=== PATIENT | female | born 1980 | race Two or more races ===

== ENCOUNTER 2017-04-09 03:05 | Emergency (ER) | payer MEDICAID ==
[~2017-04-09] VITALS: Ht 160 cm; Wt 77.1 kg
[2017-04-09] MEDS ORDERED: LABETALOL HCL100 MG ORAL (03:10)
[2017-04-09] MEDS ORDERED: ALBUTEROL2.5 MG/3 M INH (03:10)
[2017-04-09] MEDS ORDERED: Ketorolac 30mg Inj IV ONE (03:15)
[2017-04-09] MEDS ORDERED: Famotidine 20 MG/ 2ML VIAL IVP ONE (03:30)
[2017-04-09] MEDS ORDERED: Morphine Sulfate 4mg/ml Inj IVP ONE ×2 (03:30→05:15)
[2017-04-09 04:03] LABS: EOSINOPHILS % (AUTO) 9.9 % (0.0-3.0); LYMPHOCYTES % (AUTO) 19.9 % (20.0-45.0); MEAN CORPUSCULAR HEMOGLOBIN 33.9 PG (27.0-31.0); MEAN CORPUSCULAR HGB CONC 32.3 G/DL (32.0-36.0); MEAN CORPUSCULAR VOLUME 105 FL (80-99); MEAN PLATELET VOLUME 11.4 FL (6.5-10.1); NEUTROPHILS % (AUTO) 59.2 % (45.0-75.0); PLATELET COUNT 227 K/UL (150-450); RED BLOOD COUNT 4.83 M/UL (4.20-5.40); RED CELL DISTRIBUTION WIDTH 11.8 % (11.6-14.8); WHITE BLOOD COUNT 7.1 K/UL (4.8-10.8)
[2017-04-09 04:05] LABS: APPEARANCE,URINE SLIGHTLY CLOUDY; KETONES,URINE 3+ (NEGATIVE); LEUKOCYTE ESTERASE ,URINE 1+ (NEGATIVE); NITRITE,URINE NEGATIVE (NEGATIVE); PH,URINE 5 (4.5-8.0); PROTEIN,URINE 2+ (NEGATIVE); UROBILINOGEN,URINE 4 MG/DL (0.0-1.0)
[2017-04-09 04:22] LABS: BACTERIA,URINE FEW /HPF; MUCUS,URINE MANY /LPF (NONE/OCC); RBC,URINE 0-2 /HPF (0 - 2); SQUAMOUS EPITHELIAL CELL,UR MANY /LPF (NONE/OCC)
[2017-04-09 04:23] LABS: ALANINE AMINOTRANSFERASE 30 U/L (3-33); ALBUMIN/GLOBULIN RATIO 1.4 (1.0-2.7); ANION GAP 22 (5-15); ASPARTATE AMINO TRANSFERASE 38 U/L (5-40); CALCIUM 9.6 mg/dL (8.6-10.2); CARBON DIOXIDE 20 mEQ/L (20-30); CHLORIDE 98 mEQ/L (98-107); CREATININE 0.8 mg/dL (0.5-0.9); GLOMERULAR FILTRATION RATE > 60 mL/min (>60); HEMOLYSIS 28; LIPASE 31 U/L (< 60); POTASSIUM 4.2 mEQ/L (3.4-4.9); SODIUM 140 mEQ/L (135-145); TOTAL PROTEIN 7.2 g/dL (6.6-8.7)
[2017-04-09] MEDS ORDERED: cefTRIAXone 1 GM in NS 55 ML IVPB ONE (05:15)
--- NOTE | 2017-04-09 05:15 | Emergency Room Report ---
History of Present Illness General Chief Complaint: Abdominal Pain Source: Patient Present Illness HPI Patient presents with vomiting and lower abdominal pain. When she eats anything she feels like she has to move her bowels immediately and this causes increased pain in her lower abdomen. Earlier in the week she had black tarry stools that now have turned into forest green stools and now beige mucousy color. She denies vomiting blood. Denies any fevers. The pain is fairly severe and intermittent. She has dysuria. Pain is 10/10 intermittent, crampy, some radiation to back, more on L side. Nausea. Able to eat, but as sy worsened, she has refrained. Vomit at onset, not coffee grounds or blood. The patient suffered a brain aneurysm several years ago. She recovered fully and has returned to work (new job recent). No fevers, cough, sore throat, extremity pain, rashes, headache. Not believe she is . Allergies: Coded Allergies: No Known Allergies (Unverified , 04/09/17) Patient History Past Medical History: see triage record Social History: Reports: alcohol use - occasional beer (2X week) Social History Narrative Last Menstrual Period: 03/16/17 Now: No : 4 Para: 4 Reviewed Nursing Documentation: PMH: Agreed, PSxH: Agreed Nursing Documentation-PMH Hx Hypertension: Yes Hx Asthma: Yes Review of Systems All Other Systems: negative except mentioned in HPI Physical Exam Vital Signs Date Time Temp Pulse Resp B/P Pulse Ox O2 Delivery O2 Flow Rate FiO2 04/09/17 03:07 99.1 88 18 176/116 99 Room Air Sp02 EP Interpretation: reviewed, normal General Appearance: well appearing, no apparent distress, GCS 15 Head: normocephalic Eyes: bilateral eye PERRL, bilateral eye anticteric, bilateral eye normal inspection ENT: moist mucus membranes Neck: supple Respiratory: lungs clear, normal breath sounds Cardiovascular #1: regular rate, rhythm Cardiovascular #2: 2+ radial (R) Gastrointestinal: normal inspection, normal bowel sounds, soft, no mass, non- distended, no guarding, no rebound, tenderness - LLQ/suprapubic Rectal: normal exam, heme negative stool Musculoskeletal: back normal, gait/station normal, normal range of motion Neurologic: alert, oriented x3 Skin: normal inspection, warm/dry Medical Decision Making Diagnostic Impression: Primary Impression: Abdominal pain Qualified Codes: R10.32 - Left lower quadrant pain Additional Impression: UTI (urinary tract infection) Qualified Codes: N30.00 - Acute cystitis without hematuria ER Course Patient with lower abdominal pain with loose stools. Ddx: diverticulitis, GItis , ovarian cyst, UTI, inflammatory bowel, IBS. Evaluation with labs. If WBC high, consider CT. More GI - doubt ovarian. Will treat pain with toradol and IV hydration and morphine. Stool guaiac neg at this time (concern over prior black stool.) Labs with normal WBC. UA with pyuria. High H/H excludes bleeding, but suggests dehydration. Hydrated. Still reports significant pain and requests Dilaudid. Improved after dilaudid. Given Rocephin IV. Discussed observation at home -- if worsens, return. Patient stable for outpatient observation and treatment. Labs Test 04/09/17 03:15 White Blood Count 7.1 K/UL (4.8-10.8) Red Blood Count 4.83 M/UL (4.20-5.40) Hemoglobin 16.4 G/DL (12.0-16.0) Hematocrit 50.7 % (37.0-47.0) Mean Corpuscular Volume 105 FL (80-99) Mean Corpuscular Hemoglobin 33.9 PG (27.0-31.0) Mean Corpuscular Hemoglobin Concent 32.3 G/DL (32.0-36.0) Red Cell Distribution Width 11.8 % (11.6-14.8) Platelet Count 227 K/UL (150-450) Mean Platelet Volume 11.4 FL (6.5-10.1) Neutrophils (%) (Auto) 59.2 % (45.0-75.0) Lymphocytes (%) (Auto) 19.9 % (20.0-45.0) Monocytes (%) (Auto) 9.0 % (1.0-10.0) Eosinophils (%) (Auto) 9.9 % (0.0-3.0) Basophils (%) (Auto) 2.0 % (0.0-2.0) Prothrombin Time 10.0 SEC (9.30-11.50) Prothromb Time International Ratio 1.0 (0.9-1.1) Activated Partial Thromboplast Time 28 SEC (23-33) Urine Color Josy Urine Appearance Slightly cloudy Urine pH 5 (4.5-8.0) Urine Specific [place] 1.025 (1.005-1.035) Urine Protein 2+ (NEGATIVE) Urine Glucose (UA) Negative (NEGATIVE) Urine Ketones 3+ (NEGATIVE) Urine Occult Blood 1+ (NEGATIVE) Urine Nitrite Negative (NEGATIVE) Urine Bilirubin 2+ (NEGATIVE) Urine Ictotest Urine Urobilinogen 4 MG/DL (0.0-1.0) Urine Leukocyte Esterase 1+ (NEGATIVE) Urine RBC 0-2 /HPF (0 - 2) Urine WBC 5-10 /HPF (0 - 2) Urine Squamous Epithelial Cells Many /LPF (NONE/OCC) Urine Bacteria Few /HPF (NONE) Urine Mucus Many /LPF (NONE/OCC) Urine HCG, Qualitative Negative Sodium Level 140 mEQ/L (135-145) Potassium Level 4.2 mEQ/L (3.4-4.9) Chloride Level 98 mEQ/L (98-107) Carbon Dioxide Level 20 mEQ/L (20-30) Anion Gap 22 (5-15) Blood Urea Nitrogen 8 mg/dL (7-23) Creatinine 0.8 mg/dL (0.5-0.9) Estimat Glomerular Filtration Rate > 60 mL/min (>60) Glucose Level 98 mg/dL (74-106) Calcium Level 9.6 mg/dL (8.6-10.2) Total Bilirubin 0.6 mg/dL (0.0-1.2) Aspartate Amino Transf (AST/SGOT) 38 U/L (5-40) Alanine Aminotransferase (ALT/SGPT) 30 U/L (3-33) Alkaline Phosphatase 49 U/L (35-104) Total Protein 7.2 g/dL (6.6-8.7) Albumin 4.3 g/dL (3.5-5.2) Globulin 2.9 g/dL Albumin/Globulin Ratio 1.4 (1.0-2.7) Lipase 31 U/L (< 60) EKG Diagnostic Results Rate: normal Rhythm: NSR ST Segments: no acute changes Rhythm Strip Diag. Results EP Interpretation: yes Rhythm: NSR, no PVC's, no ectopy Last Vital Signs Date Time Temp Pulse Resp B/P Pulse Ox O2 Delivery O2 Flow Rate FiO2 04/09/17 07:14 99.1 04/09/17 07:12 80 18 157/95 99 Room Air Status: improved Disposition: HOME, SELF-CARE Condition: Improved Scripts Nitrofurantoin Monohyd/M-Cryst* (MACROBID 100 MG*) 100 Mg Capsule 100 MG ORAL EVERY 12 HOURS, #14 CAP Prov: Mikie López M.D. 04/09/17 Ondansetron Odt* (ZOFRAN ODT*) 4 Mg Tab.rapdis 4 MG ORAL Q6H Y for Nausea & Vomiting, #6 TAB 1 Refill Prov: Mikie López M.D. 04/09/17 Tramadol Hcl* (ULTRAM*) 50 Mg Tablet 50 MG ORAL Q6H Y for For Pain, #10 TAB 0 Refills Prov: Mikie López M.D. 04/09/17 Albuterol Sulfate* (ALBUTEROL SULFATE MDI*) 8.5 Gm Hfa.aer.ad 2 PUFF INH Q6H, #1 EA 1 Refill Prov: Mikie López M.D. 04/09/17 Referrals: [facility],REFERR[facility] (PCP) Mikie López M.D. Apr 09, 2017 05:15
[2017-04-09 05:56] VITALS: BP 157/95
[2017-04-09] MEDS ORDERED: HYDROmorphone 1mg/ml Carpuject IVP ONE (06:15)
[2017-04-09] MEDS ORDERED: ZOFRAN ODT4 MG ORAL (06:54)
[2017-04-09] MEDS ORDERED: ALBUTEROL SULF8.5 GM INH (06:54)
[2017-04-09] MEDS ORDERED: TRAMADOL HCL50 MG ORAL (06:54)
[2017-04-09 07:12] VITALS: BP 157/95
[2017-04-09] MEDS ORDERED: NITROFURANTOIN100 M2 ORAL (07:20)
== END 2017-04-09 07:14 | disposition home or self-care (01) ==
LOC: EDBD 03:05 → EDSEX 03:05 → EMR 03:30
DX: R10.30 Lower abdominal pain, unspecified (principal); N39.0 Urinary tract infection, site not specified; I10 Essential (primary) hypertension; J45.909 Unspecified asthma, uncomplicated
CPT/HCPCS: 36415; 80053; 81003; 81025; 83690; 85025; 85610; 85730; 96374; 96375; 99284; J0696; J1170; J2270; J2405; S0028

== ENCOUNTER 2017-04-13 22:00 | Inpatient (IN) | payer MEDICAID ==
[~2017-04-13] VITALS: Ht 160 cm; Wt 72.6 kg
[2017-04-13 22:00] VITALS: BP 180/115
[~2017-04-13 22:00] MED LIST: ALBUTEROL SULF8.5 GM INH; ALBUTEROL2.5 MG/3 M INH; LABETALOL HCL100 MG ORAL; NITROFURANTOIN100 M2 ORAL; TRAMADOL HCL50 MG ORAL; ZOFRAN ODT4 MG ORAL
[2017-04-13] MEDS ORDERED: HYDROmorphone 1mg/ml Carpuject IVP ONE (22:30)
[2017-04-13 22:46] LABS: BASOPHILS % (AUTO) 1.2 % (0.0-2.0); EOSINOPHILS % (AUTO) 4.8 % (0.0-3.0); LYMPHOCYTES % (AUTO) 23.7 % (20.0-45.0); MEAN CORPUSCULAR HEMOGLOBIN 34.9 PG (27.0-31.0); MEAN CORPUSCULAR HGB CONC 33.6 G/DL (32.0-36.0); MEAN CORPUSCULAR VOLUME 104 FL (80-99); MEAN PLATELET VOLUME 10.5 FL (6.5-10.1); MONOCYTES % (AUTO) 9.1 % (1.0-10.0); NEUTROPHILS % (AUTO) 61.1 % (45.0-75.0); PLATELET COUNT 164 K/UL (150-450); RED BLOOD COUNT 4.47 M/UL (4.20-5.40); RED CELL DISTRIBUTION WIDTH 11.4 % (11.6-14.8); WHITE BLOOD COUNT 10.4 K/UL (4.8-10.8)
[2017-04-13 23:05] LABS: ALANINE AMINOTRANSFERASE 30 U/L (3-33); ALBUMIN/GLOBULIN RATIO 1.7 (1.0-2.7); ANION GAP 19 (5-15); ASPARTATE AMINO TRANSFERASE 32 U/L (5-40); CALCIUM 9.5 mg/dL (8.6-10.2); CARBON DIOXIDE 19 mEQ/L (20-30); CHLORIDE 100 mEQ/L (98-107); CREATININE 0.8 mg/dL (0.5-0.9); GLOMERULAR FILTRATION RATE > 60 mL/min (>60); HEMOLYSIS 4; LIPASE 34 U/L (< 60); POTASSIUM 3.4 mEQ/L (3.4-4.9); SODIUM 138 mEQ/L (135-145); TOTAL PROTEIN 7.1 g/dL (6.6-8.7)
[2017-04-13 23:40] LABS: APPEARANCE,URINE CLEAR; KETONES,URINE 4+ (NEGATIVE); LEUKOCYTE ESTERASE ,URINE 1+ (NEGATIVE); NITRITE,URINE NEGATIVE (NEGATIVE); PH,URINE 6 (4.5-8.0); PROTEIN,URINE 2+ (NEGATIVE); UROBILINOGEN,URINE 1 MG/DL (0.0-1.0)
[2017-04-13 23:45] VITALS: BP 149/89
[2017-04-13 23:54] LABS: RBC,URINE 0-2 /HPF (0 - 2); WBC,URINE 0-2 /HPF (0 - 2)
[2017-04-13 23:55] LABS: BACTERIA,URINE OCCASIONAL /HPF; MUCUS,URINE FEW /LPF (NONE/OCC); SQUAMOUS EPITHELIAL CELL,UR MODERATE /LPF (NONE/OCC)
[2017-04-14] VITALS (7 sets, daily range): BP systolic 134–204; BP diastolic 69–112
[2017-04-14] MEDS ORDERED: PROAIR HFA8.5 GM INH (00:30)
[2017-04-14] MEDS ORDERED: QVAR7.3 GM INH (00:30)
--- NOTE | 2017-04-14 00:37 | Emergency Room Report ---
History of Present Illness General Chief Complaint: Abdominal Pain Source: Patient, EMS Present Illness HPI Is a 36-year-old female with history hypertension. Also history of asthma. She presents with chief complaint abdominal pain with vomiting and diarrhea. Onset almost a week now. She was here last week with negative workup and possible UTI. She was discharged home. Couple days later she went to [place] for the same symptom. She was given IV fluid and blood work was unremarkable. She came in by EMS because of severe abdominal pain with vomiting and diarrhea. Unable to keep anything down. [place] dehydrated. She had the symptoms before. Said that for the last 4 years once a year, she get like this. Admitted once before. Never had endoscopy or colonoscopy. Vomiting is nonbloody nonbilious. No bloody diarrhea. Allergies: Coded Allergies: No Known Allergies (Unverified , 04/09/17) Patient History Past Medical History: see triage record, old chart reviewed, HTN Past Surgical History: other Pertinent Family History: none Social History: Denies: smoking Last Menstrual Period: ukn Now: No Immunizations: other Reviewed Nursing Documentation: PMH: Agreed, PSxH: Agreed Nursing Documentation-PMH Past Medical History: No History, Except For Hx Hypertension: Yes Hx Asthma: Yes Review of Systems Eye: Denies: blurred vision, eye pain ENT: Denies: ear pain, nose congestion, throat swelling Respiratory: Denies: cough, shortness of breath Cardiovascular: Denies: chest pain, palpitations Gastrointestinal: Reports: abdominal pain, diarrhea, nausea, vomiting Musculoskeletal: Denies: back pain, joint pain Skin: Denies: rash Neurological: Denies: headache, numbness Endocrine: Denies: increased thirst, increased urine Hematologic/Lymphatic: Denies: easy bruising All Other Systems: negative except mentioned in HPI Physical Exam Vital Signs Date Time Temp Pulse Resp B/P Pulse Ox O2 Delivery O2 Flow Rate FiO2 04/13/17 22:00 98.4 107 20 180/115 99 Room Air vitals with hypertension Sp02 EP Interpretation: reviewed, normal General Appearance: well appearing, no apparent distress, alert Head: normocephalic, atraumatic Eyes: bilateral eye EOMI, bilateral eye PERRL ENT: hearing grossly normal, normal pharynx Neck: full range of motion, supple, no meningismus Respiratory: chest non-tender, lungs clear, normal breath sounds Cardiovascular #1: regular rate, rhythm, no murmur Gastrointestinal: normal bowel sounds, no mass, no organomegaly, no bruit, non- distended, tenderness - Diffuse but soft. Musculoskeletal: back normal, gait/station normal, normal range of motion Psychiatric: mood/affect normal Skin: warm/dry Medical Decision Making Diagnostic Impression: Primary Impression: Abdominal pain Qualified Codes: R10.84 - Generalized abdominal pain Additional Impressions: Intractable vomiting with nausea Qualified Codes: R11.2 - Nausea with vomiting, unspecified Hypertension Qualified Codes: I10 - Essential (primary) hypertension Dehydration Proteinuria Qualified Codes: R80.9 - Proteinuria, unspecified ER Course Patient with vomiting and diarrhea. She is dehydrated. No evidence of obstruction or acute abdomen. She felt better now. Will admit for IV fluid. Blood pressure also improved after pain control. Patient said that she does not use drugs and does not know how she is positive for amphetamine. She did receive pain medication here prior to her urine analysis. Lab Results Impression labs unremarkable CT/MRI/US Diagnostic Results CT/MRI/US Diagnostic Results : Imaging Test Ordered: CT abdomen and pelvis Impression read by radiologist. Unremarkable. Last Vital Signs Date Time Temp Pulse Resp B/P Pulse Ox O2 Delivery O2 Flow Rate FiO2 04/13/17 23:45 92 16 149/89 99 Room Air 04/13/17 22:57 98.4 Status: unchanged Disposition: ADMITTED INPATIENT Condition: Serious Referrals: [facility]ERR[facility] (PCP) VIVIAN MARQUES M.D. Apr 14, 2017 00:37
[2017-04-14] MEDS ORDERED: Metoclopramide 10mg/2ml Inj IVP PRN (00:45)
[2017-04-14] MEDS ORDERED: Morphine Sulfate 4mg/ml Inj IVP ONE (00:45)
[2017-04-14] MEDS ORDERED: Nitroglycerin Subl 0.4mg tab (Bottle Of 25) SL PRN (00:45)
[2017-04-14] MEDS ORDERED: Miralax 17gm pkt ORAL PRN (00:45)
[2017-04-14] MEDS ORDERED: Mylanta II UD 30ml ORAL PRN (00:45)
[2017-04-14] MEDS ORDERED: LORazepam Inj 2mg/ml 1ml IV PRN (00:45)
[2017-04-14] MEDS ORDERED: traMADol 50mg tab ORAL PRN (00:45)
[2017-04-14] MEDS: Morphine Sulfate 2mg/ml Inj IVP PRN ×6 (03:26→21:48)
[2017-04-14] MEDS: D5 1/2NS 1,000 ML IV SCH ×2 (07:00→20:48)
[2017-04-14] MEDS: Pantoprazole Inj IV SCH (08:18)
[2017-04-14] MEDS: Heparin 5000 units/ml inj SUBQ SCH ×2 (08:21→20:37)
--- NOTE | 2017-04-14 09:15 | Diagnostic Imaging Report ---
Indication: Abdominal pain Technique: Continuous helical transaxial imaging of the abdomen and pelvis was obtained from the lung bases to the pubic symphysis during intravenous contrast administration. Coronal 2-D reformats were also obtained. Study obtained in a Siemens sensation [address] Total Dose length Product (DLP): [address] Dose Index Volume (CTDIvol): 19 mGy Comparison: None Findings: The lung bases are clear. Liver is low in attenuation consistent with fatty infiltration. Accessory spleen noted. Gallbladder is unremarkable. The pancreas and spleen are unremarkable. Kidneys enhance normally. There is no hydronephrosis. Long normal-appearing appendix demonstrated. Intrauterine device is present. There are small bilateral hernias containing fat. Few diverticula noted in the sigmoid colon. No definite diverticulitis appreciated. Impression: Fatty liver Mild sigmoid diverticulosis. No definite diverticulitis. Normal appendix Accessory spleen Intrauterine device [facility] has communicated the preliminary results to the Emergency Department. Their findings are largely concordant with this report. The CT scanner at [facility] is accredited by the [employer] and the scans are performed using dose optimization techniques as appropriate to a performed exam including Automatic Exposure control.
[2017-04-14] MEDS ORDERED: Morphine Sulfate 2mg/ml Inj IVP ONE (09:45)
--- NOTE | 2017-04-14 11:20 | History and Physical ---
History of Present Illness General Date patient seen: Apr 14, 2017 Time patient seen: 09:30 Reason for Hospitalization: Abdominal Pain Present Illness HPI 36 y/old female with hx of asthma, HTN, brain aneurysm, presenetd with chief complaint of abdominal pain with vomiting and diarrhea. Onset a week ago. Patient was in ED last week with negative workup and possible UTI. Subsequently she was discharged home. Then she went to [place] for the same symptoms. in [place] she was given IV fluid and blood work was unremarkable. patient does not have a primary medical doctor to follow She came in by EMS because of severe abdominal pain with vomiting and diarrhea. Unable to keep food down. She felt dehydrated. She had these symptoms before. patient stated that for the last 4 years once a year, she get these symptoms . Never had endoscopy or colonoscopy. Vomiting is nonbloody, nonbilious. No bloody diarrhea. workup revealed no leukocytosis stable HH elevated anion gap-19 tox screen + amphetamines, opiates stable LFT, lipase CT A/P -Fatty liver. Mild sigmoid diverticulosis. No definite diverticulitis. patient was admitted for further management Allergies: Coded Allergies: No Known Allergies (Unverified , 04/09/17) Medication History Scheduled Albuterol Sulfate* (Albuterol Sulfate Mdi*), 2 PUFF INH Q6H Albuterol Sulfate* (Proair Hfa*), 2 PUFFS INH Q6H, (Reported) Beclomethasone Dipropionate 40MCG Oral Inh (Qvar 40*), 2 PUFFS INH TWICE A DAY, (Reported) Labetalol Hcl* (Normodyne*), 100 MG ORAL EVERY 12 HOURS, (Reported) Nitrofurantoin Monohyd/M-Cryst* (Macrobid 100 Mg*), 100 MG ORAL EVERY 12 HOURS Scheduled PRN Albuterol Sulfate* (Albuterol Sulfate Hhn*), 3 ML INH Q4H PRN for Shortness of Breath, (Reported) Ondansetron Odt* (Zofran Odt*), 4 MG ORAL Q6H PRN for Nausea & Vomiting Tramadol Hcl* (Ultram*), 50 MG ORAL Q6H PRN for For Pain Patient History Healthcare decision maker Resuscitation status Full Code Advanced Directive on File Past Medical/Surgical History Past Medical/Surgical History: (1) Brain aneurysm (2) Asthma (3) Hypertension Review of Systems Constitutional: Reports: weakness Eye: Reports: no symptoms ENT: Reports: no symptoms Respiratory: Reports: other - hx of asthma, controlled Cardiovascular: Reports: no symptoms Gastrointestinal: Reports: see HPI Genitourinary: Reports: no symptoms Musculoskeletal: Reports: no symptoms Skin: Reports: no symptoms Psychiatric: Reports: no symptoms Neurological: Reports: no symptoms Endocrine: Reports: no symptoms Hematologic/Lymphatic: Reports: no symptoms Physical Exam General Appearance: alert, overweight - A/A/O x 3 female in mild distress Lines, tubes and drains: peripheral HEENT: normocephalic, atraumatic, anicteric Neck: non-tender, supple Respiratory/Chest: chest wall non-tender, lungs clear, no respiratory distress , no accessory muscle use Cardiovascular/Chest: normal peripheral pulses, normal rate, regular rhythm Abdomen: normal bowel sounds, non tender, soft - obese Extremities: normal range of motion, non-tender, no calf tenderness, normal capillary refill 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, no motor/sensory deficits, alert, oriented x 3, responsive Musculoskeletal: normal muscle bulk Last 24 Hour Vital Signs Date Time Temp Pulse Resp B/P Pulse Ox O2 Delivery O2 Flow Rate FiO2 04/14/17 08:42 97.3 67 15 140/69 100 Room Air 04/14/17 08:18 86 157/95 04/14/17 04:00 98.2 86 17 157/95 96 Room Air 04/14/17 01:10 98.1 149/86 100 Room Air 04/14/17 01:05 97.8 81 14 134/81 99 Room Air 04/14/17 00:45 97.8 81 14 134/81 99 Room Air 04/13/17 23:45 92 16 149/89 99 Room Air 04/13/17 22:57 98.4 04/13/17 22:00 98.4 20 180/115 99 Room Air 04/13/17 22:00 98.4 107 20 180/115 99 Room Air Intake and Output 04/13/17 04/14/17 19:00 07:00 Intake Total 1000 ml Balance 1000 ml Intake Oral 0 ml IV Total 1000 ml Laboratory Tests Test 04/13/17 22:20 04/13/17 23:10 White Blood Count 10.4 K/UL (4.8-10.8) Red Blood Count 4.47 M/UL (4.20-5.40) Hemoglobin 15.6 G/DL (12.0-16.0) Hematocrit 46.4 % (37.0-47.0) Mean Corpuscular Volume 104 FL (80-99) H Mean Corpuscular Hemoglobin 34.9 PG (27.0-31.0) H Mean Corpuscular Hemoglobin Concent 33.6 G/DL (32.0-36.0) Red Cell Distribution Width 11.4 % (11.6-14.8) L Platelet Count 164 K/UL (150-450) Mean Platelet Volume 10.5 FL (6.5-10.1) H Neutrophils (%) (Auto) 61.1 % (45.0-75.0) Lymphocytes (%) (Auto) 23.7 % (20.0-45.0) Monocytes (%) (Auto) 9.1 % (1.0-10.0) Eosinophils (%) (Auto) 4.8 % (0.0-3.0) H Basophils (%) (Auto) 1.2 % (0.0-2.0) Sodium Level 138 mEQ/L (135-145) Potassium Level 3.4 mEQ/L (3.4-4.9) Chloride Level 100 mEQ/L (98-107) Carbon Dioxide Level 19 mEQ/L (20-30) L Anion Gap 19 (5-15) H Blood Urea Nitrogen 7 mg/dL (7-23) Creatinine 0.8 mg/dL (0.5-0.9) Estimat Glomerular Filtration Rate > 60 mL/min (>60) Glucose Level 82 mg/dL (74-106) Calcium Level 9.5 mg/dL (8.6-10.2) Total Bilirubin 0.5 mg/dL (0.0-1.2) Aspartate Amino Transf (AST/SGOT) 32 U/L (5-40) Alanine Aminotransferase (ALT/SGPT) 30 U/L (3-33) Alkaline Phosphatase 41 U/L (35-104) Total Protein 7.1 g/dL (6.6-8.7) Albumin 4.5 g/dL (3.5-5.2) Globulin 2.6 g/dL Albumin/Globulin Ratio 1.7 (1.0-2.7) Lipase 34 U/L (< 60) Urine Color Josy Urine Appearance Clear Urine pH 6 (4.5-8.0) Urine Specific [place] 1.025 (1.005-1.035) Urine Protein 2+ (NEGATIVE) H Urine Glucose (UA) Negative (NEGATIVE) Urine Ketones 4+ (NEGATIVE) H Urine Occult Blood 1+ (NEGATIVE) H Urine Nitrite Negative (NEGATIVE) Urine Bilirubin 1+ (NEGATIVE) H Urine Ictotest Urine Urobilinogen 1 MG/DL (0.0-1.0) H Urine Leukocyte Esterase 1+ (NEGATIVE) H Urine RBC 0-2 /HPF (0 - 2) Urine WBC 0-2 /HPF (0 - 2) Urine Squamous Epithelial Cells Moderate /LPF (NONE/OCC) H Urine Bacteria Occasional /HPF (NONE) Urine Mucus Few /LPF (NONE/OCC) H Urine HCG, Qualitative Negative Urine Opiates Screen Positive (NEGATIVE) H Urine Barbiturates Screen Negative (NEGATIVE) Phencyclidine (PCP) Screen Negative (NEGATIVE) Urine Amphetamines Screen Positive (NEGATIVE) H Urine Benzodiazepines Screen Negative (NEGATIVE) Urine Cocaine Screen Negative (NEGATIVE) Urine Marijuana (THC) Screen Negative (NEGATIVE) Height (Feet): 5 Height (Inches): 3.00 Weight (Pounds): 160 Medications Current Medications Medications (Trade) Dose Ordered Sig/Bryant Route PRN Reason Start Time Stop Time Status Last Admin Dose Admin Acetaminophen (Tylenol) 650 mg Q4H PRN ORAL fever 04/14/17 00:45 05/14/17 00:44 04/14/17 02:43 Al Hydroxide/Mg Hydroxide (Mylanta II) 30 ml Q6H PRN ORAL dyspepsia 04/14/17 00:45 05/14/17 00:44 Dextrose (Dextrose 50%) STAT PRN IV Hypoglycemia 04/14/17 00:45 05/14/17 00:44 Dextrose/Sodium Chloride (D5 0.45% NS) 1,000 ml @ 75 mls/hr [id number] IV 04/14/17 07:00 05/14/17 06:59 04/14/17 07:00 Diphenhydramine HCl (Benadryl) 25 mg Q6H PRN ORAL Itching/Pruritis 04/14/17 00:45 05/14/17 00:44 Heparin Sodium (Porcine) (Heparin 5000 units/ml) 5,000 units EVERY 12 HOURS SUBQ 04/14/17 09:00 05/14/17 08:59 04/14/17 08:21 Labetalol HCl (Normodyne) 100 mg EVERY 12 HOURS ORAL 04/14/17 09:00 05/14/17 08:59 04/14/17 08:18 Lorazepam 1 mg 1 mg EVERY 4 HOURS PRN IV agitation 04/14/17 00:45 04/21/17 00:44 Morphine Sulfate (Morphine Sulfate) 2 mg Q3H PRN IVP severe Pain (Pain Scale 7-10) 04/14/17 12:00 04/21/17 11:59 Nitroglycerin (Ntg) 0.4 mg Q5M X 3 DOSES PRN SL Prn Chest Pain 04/14/17 00:45 05/14/17 00:44 Ondansetron HCl (Zofran) 4 mg Q6H PRN IVP Nausea & Vomiting 04/14/17 00:45 05/14/17 00:44 Pantoprazole (Protonix) 40 mg DAILY IV 04/14/17 09:00 05/14/17 08:59 04/14/17 08:18 Polyethylene Glycol (Miralax) 17 gm HSPRN PRN ORAL Constipation 04/14/17 00:45 05/14/17 00:44 Promethazine HCl (Phenergan) 25 mg EVERY 8 HOURS PRN IV refractory nausea 04/14/17 00:45 05/14/17 00:44 Temazepam (Restoril) 15 mg HSPRN PRN ORAL Insomnia 04/14/17 00:45 04/21/17 00:44 Tramadol HCl (Ultram) 50 mg Q6H PRN ORAL Moderate Pain (Pain Scale 4-6) 04/14/17 09:37 04/21/17 00:44 Assessment/Plan Assessment/Plan ASSESSMENT abdominal pain intractable nausea and vomiting dehydration possible cyclic vomiting disorder fatty liver amphetamine abuse HTN asthma PLAN OF CARE MS floor NPO for now IVF pain management a/emetic prn GI eval abdominal US n/v/ with abd pain ? cyclic vomiting syndrome vs drug induced vs fatty liver doubt other pathology with normal LFT, lipase but will check abdominal US and obtain GI evla BP management, start on low dose of CCB and titrate as needed O2 HHN prn stable on RA spiritual counselor on abstinence from street drug outpatient follow up with GI for fatty liver management case discussed and evaluated by supervising physician [place] ([place]),Halley CARCAMO Apr 14, 2017 11:20
[2017-04-14] MEDS ORDERED: DuoNeb 0.5-3(2.5)mg/3ml neb HHN PRN (11:45)
--- NOTE | 2017-04-14 14:42 | GI Initial Consult Note ---
History of Present Illness General Date patient seen: Apr 14, 2017 Time patient seen: 11:00 Reason for Hospitalization: Abdominal Pain Referring physician: TESSY CARR Reason for Consultation: N/V/D Present Illness HPI Is a 36-year-old female with history hypertension. Also history of asthma. She presents with chief complaint abdominal pain with vomiting and diarrhea. Onset almost a week now. She was here last week with negative workup and possible UTI. She was discharged home. Couple days later she went to [place] for the same symptom. She was given IV fluid and blood work was unremarkable. She came in by EMS because of severe abdominal pain with vomiting and diarrhea. Unable to keep anything down. [place] dehydrated. She had the symptoms before. Said that for the last 4 years once a year, she get like this. Admitted once before. Never had endoscopy or colonoscopy. Vomiting is nonbloody nonbilious. No bloody diarrhea. GI Consult. HPI noted above. GI consulted for abdominal pain with N/V. Pt seen on floor, awake A&Ox4 NAD c/o of abdominal pain with vomiting. Denies any hematemesis or coffee grounds. CT AP unremarkable. Patient is a social ETOH user. 10+ year tobacco user. Patient denies drug use despite positive urine tox for amphetamines. Lipase unremarkable. No history of any endoscopic procedures. Home Meds Active Scripts Nitrofurantoin Monohyd/M-Cryst* (MACROBID 100 MG*) 100 Mg Capsule, 100 MG ORAL EVERY 12 HOURS, #14 CAP Prov:Mikie López M.D. 04/09/17 Ondansetron Odt* (ZOFRAN ODT*) 4 Mg Tab.rapdis, 4 MG ORAL Q6H Y for Nausea & Vomiting, #6 TAB 1 Refill Prov:Mikie López M.D. 04/09/17 Tramadol Hcl* (ULTRAM*) 50 Mg Tablet, 50 MG ORAL Q6H Y for For Pain, #10 TAB 0 Refills Prov:Mikie López M.D. 04/09/17 Albuterol Sulfate* (ALBUTEROL SULFATE MDI*) 8.5 Gm Hfa.aer.ad, 2 PUFF INH Q6H, # 1 EA 1 Refill Prov:Mikie López M.D. 04/09/17 Reported Medications Beclomethasone Dipropionate 40MCG Oral Inh (QVAR 40*) 7.3 Gm Aer.w.adap, 2 PUFFS INH TWICE A DAY, GM 0 Refills 04/14/17 Albuterol Sulfate* (PROAIR HFA*) 8.5 Gm Hfa.aer.ad, 2 PUFFS INH Q6H, #8.5 GM 0 Refills 04/14/17 Albuterol Sulfate* (ALBUTEROL SULFATE HHN*) 2.5 Mg/3 Ml Vial.neb, 3 ML INH Q4H Y for Shortness of Breath, EA 04/09/17 Labetalol Hcl* (NORMODYNE*) 100 Mg Tablet, 100 MG ORAL EVERY 12 HOURS, TAB 04/09/17 Med list reviewed/reconciled: Yes Allergies: Coded Allergies: No Known Allergies (Unverified , 04/09/17) Patient History History Provided By: Patient PMH Narrative see triage record, old chart reviewed, HTN Past Surgical History: other Pertinent Family History: none Social History: Denies: smoking Last Menstrual Period: ukn Now: No Immunizations: other Reviewed Nursing Documentation: PMH: Agreed, PSxH: Agreed Nursing Documentation-PMH Past Medical History: No History, Except For Hx Hypertension: Yes Hx Asthma: Yes Social History: Reports: alcohol use - social, drug use - denies, smoking - 10 + years Review of Systems All Other Systems: negative except mentioned in HPI Physical Exam Vital Signs Date Time Temp Pulse Resp B/P Pulse Ox O2 Delivery O2 Flow Rate FiO2 04/13/17 22:00 98.4 107 20 180/115 99 Room Air Sp02 EP Interpretation: reviewed Labs Laboratory Tests Test 04/13/17 22:20 04/13/17 23:10 White Blood Count 10.4 K/UL (4.8-10.8) Red Blood Count 4.47 M/UL (4.20-5.40) Hemoglobin 15.6 G/DL (12.0-16.0) Hematocrit 46.4 % (37.0-47.0) Mean Corpuscular Volume 104 FL (80-99) H Mean Corpuscular Hemoglobin 34.9 PG (27.0-31.0) H Mean Corpuscular Hemoglobin Concent 33.6 G/DL (32.0-36.0) Red Cell Distribution Width 11.4 % (11.6-14.8) L Platelet Count 164 K/UL (150-450) Mean Platelet Volume 10.5 FL (6.5-10.1) H Neutrophils (%) (Auto) 61.1 % (45.0-75.0) Lymphocytes (%) (Auto) 23.7 % (20.0-45.0) Monocytes (%) (Auto) 9.1 % (1.0-10.0) Eosinophils (%) (Auto) 4.8 % (0.0-3.0) H Basophils (%) (Auto) 1.2 % (0.0-2.0) Sodium Level 138 mEQ/L (135-145) Potassium Level 3.4 mEQ/L (3.4-4.9) Chloride Level 100 mEQ/L (98-107) Carbon Dioxide Level 19 mEQ/L (20-30) L Anion Gap 19 (5-15) H Blood Urea Nitrogen 7 mg/dL (7-23) Creatinine 0.8 mg/dL (0.5-0.9) Estimat Glomerular Filtration Rate > 60 mL/min (>60) Glucose Level 82 mg/dL (74-106) Calcium Level 9.5 mg/dL (8.6-10.2) Total Bilirubin 0.5 mg/dL (0.0-1.2) Aspartate Amino Transf (AST/SGOT) 32 U/L (5-40) Alanine Aminotransferase (ALT/SGPT) 30 U/L (3-33) Alkaline Phosphatase 41 U/L (35-104) Total Protein 7.1 g/dL (6.6-8.7) Albumin 4.5 g/dL (3.5-5.2) Globulin 2.6 g/dL Albumin/Globulin Ratio 1.7 (1.0-2.7) Lipase 34 U/L (< 60) Urine Color Josy Urine Appearance Clear Urine pH 6 (4.5-8.0) Urine Specific [place] 1.025 (1.005-1.035) Urine Protein 2+ (NEGATIVE) H Urine Glucose (UA) Negative (NEGATIVE) Urine Ketones 4+ (NEGATIVE) H Urine Occult Blood 1+ (NEGATIVE) H Urine Nitrite Negative (NEGATIVE) Urine Bilirubin 1+ (NEGATIVE) H Urine Ictotest Urine Urobilinogen 1 MG/DL (0.0-1.0) H Urine Leukocyte Esterase 1+ (NEGATIVE) H Urine RBC 0-2 /HPF (0 - 2) Urine WBC 0-2 /HPF (0 - 2) Urine Squamous Epithelial Cells Moderate /LPF (NONE/OCC) H Urine Bacteria Occasional /HPF (NONE) Urine Mucus Few /LPF (NONE/OCC) H Urine HCG, Qualitative Negative Urine Opiates Screen Positive (NEGATIVE) H Urine Barbiturates Screen Negative (NEGATIVE) Phencyclidine (PCP) Screen Negative (NEGATIVE) Urine Amphetamines Screen Positive (NEGATIVE) H Urine Benzodiazepines Screen Negative (NEGATIVE) Urine Cocaine Screen Negative (NEGATIVE) Urine Marijuana (THC) Screen Negative (NEGATIVE) General Appearance: well appearing, no apparent distress, alert, obese Head: normocephalic EENT: PERRL/EOMI, normal ENT inspection Neck: normal inspection, full range of motion, supple Respiratory: normal breath sounds, no rhonchi, no respiratory distress Cardiovascular: normal rate Gastrointestinal: normal inspection, non tender, soft, normal bowel sounds Rectal: deferred Genitourinary: normal inspection, no CVA tenderness Neurologic: normal inspection, alert, oriented x3, responsive Psychiatric: normal inspection, judgement/insight normal, memory normal Skin: normal inspection, normal color, no rash, warm/dry Lymphatic: normal inspection, no adenopathy Current Medications Current Medications Medications (Trade) Dose Ordered Sig/Bryant Route PRN Reason Start Time Stop Time Status Last Admin Dose Admin Acetaminophen (Tylenol) 650 mg Q4H PRN ORAL fever 04/14/17 00:45 05/14/17 00:44 04/14/17 02:43 Al Hydroxide/Mg Hydroxide (Mylanta II) 30 ml Q6H PRN ORAL dyspepsia 04/14/17 00:45 05/14/17 00:44 Albuterol/ Ipratropium (DuoNeb 0.5-3(2.5)mg/3ml) 3 ml Q4H PRN HHN Shortness of Breath 04/14/17 11:45 04/19/17 11:44 Amlodipine Besylate (Norvasc) 2.5 mg DAILY ORAL 04/14/17 12:30 05/14/17 12:29 04/14/17 12:28 Dextrose (Dextrose 50%) STAT PRN IV Hypoglycemia 04/14/17 00:45 05/14/17 00:44 Dextrose/Sodium Chloride (D5 0.45% NS) 1,000 ml @ 75 mls/hr [id number] IV 04/14/17 07:00 05/14/17 06:59 04/14/17 07:00 Diphenhydramine HCl (Benadryl) 25 mg Q6H PRN ORAL Itching/Pruritis 04/14/17 00:45 05/14/17 00:44 Heparin Sodium (Porcine) (Heparin 5000 units/ml) 5,000 units EVERY 12 HOURS SUBQ 04/14/17 09:00 05/14/17 08:59 04/14/17 08:21 Labetalol HCl (Normodyne) 100 mg EVERY 12 HOURS ORAL 04/14/17 09:00 05/14/17 08:59 04/14/17 08:18 Lorazepam 1 mg 1 mg EVERY 4 HOURS PRN IV agitation 04/14/17 00:45 04/21/17 00:44 Morphine Sulfate (Morphine Sulfate) 2 mg Q3H PRN IVP severe Pain (Pain Scale 7-10) 04/14/17 12:00 04/21/17 11:59 04/14/17 12:29 Nitroglycerin (Ntg) 0.4 mg Q5M X 3 DOSES PRN SL Prn Chest Pain 04/14/17 00:45 05/14/17 00:44 Ondansetron HCl (Zofran) 4 mg Q6H PRN IVP Nausea & Vomiting 04/14/17 00:45 05/14/17 00:44 04/14/17 11:16 Pantoprazole (Protonix) 40 mg DAILY IV 04/14/17 09:00 05/14/17 08:59 04/14/17 08:18 Polyethylene Glycol (Miralax) 17 gm HSPRN PRN ORAL Constipation 04/14/17 00:45 05/14/17 00:44 Promethazine HCl (Phenergan) 25 mg EVERY 8 HOURS PRN IV refractory nausea 04/14/17 00:45 05/14/17 00:44 Temazepam (Restoril) 15 mg HSPRN PRN ORAL Insomnia 04/14/17 00:45 04/21/17 00:44 Tramadol HCl (Ultram) 50 mg Q6H PRN ORAL Moderate Pain (Pain Scale 4-6) 04/14/17 09:37 04/21/17 00:44 GI: Plan Problems: (1) Amphetamine abuse (2) Intractable vomiting with nausea (3) Abdominal pain (4) Dehydration Plan urine tox positive for amphetamines CT AP >> unremarkable lipase WNL symptomatic treatment at this time CLD, adv as tolerated IV hydration + electrolyte replacement zofran prn H2B fu labs Discussed with Dr. Alexandre. Thank you for referring this patient. Lesli Arreaga N.P. Apr 14, 2017 14:42
--- NOTE | 2017-04-14 15:12 | Diagnostic Imaging Report ---
Indication:Abdominal pain Technique: Grayscale and duplex Doppler imaging of the abdomen performed. Comparison: None Findings: The demonstrated part of the pancreas, gallbladder, aorta and IVC, both kidneys, spleen appear unremarkable. Liver is echogenic consistent with fatty infiltration. CBD measures between 9 and 10 mm, which is a proximal measurement. Doppler evaluation of the main portal vein shows patency. There is no ascites. No hydronephrosis seen. Impression: Moderate fatty infiltration of the liver. Negative exam otherwise
--- NOTE | 2017-04-14 15:47 | Consultation ---
History of Present Illness General Date patient seen: Apr 14, 2017 Chief Complaint: Abdominal Pain Referring physician: TESSY ACRR Reason for Consultation: N/V/D Present Illness Allergies: Coded Allergies: No Known Allergies (Unverified , 04/09/17) Medication History Scheduled Albuterol Sulfate* (Albuterol Sulfate Mdi*), 2 PUFF INH Q6H Albuterol Sulfate* (Proair Hfa*), 2 PUFFS INH Q6H, (Reported) Beclomethasone Dipropionate 40MCG Oral Inh (Qvar 40*), 2 PUFFS INH TWICE A DAY, (Reported) Labetalol Hcl* (Normodyne*), 100 MG ORAL EVERY 12 HOURS, (Reported) Nitrofurantoin Monohyd/M-Cryst* (Macrobid 100 Mg*), 100 MG ORAL EVERY 12 HOURS Scheduled PRN Albuterol Sulfate* (Albuterol Sulfate Hhn*), 3 ML INH Q4H PRN for Shortness of Breath, (Reported) Ondansetron Odt* (Zofran Odt*), 4 MG ORAL Q6H PRN for Nausea & Vomiting Tramadol Hcl* (Ultram*), 50 MG ORAL Q6H PRN for For Pain Patient History Healthcare decision maker Resuscitation status Full Code Advanced Directive on File Physical Exam Last 24 Hour Vital Signs Date Time Temp Pulse Resp B/P Pulse Ox O2 Delivery O2 Flow Rate FiO2 04/14/17 12:58 97.7 81 18 182/104 97 Room Air 04/14/17 12:28 97 182/104 04/14/17 08:42 97.3 67 15 140/69 100 Room Air 04/14/17 08:18 86 157/95 04/14/17 04:00 98.2 86 17 157/95 96 Room Air 04/14/17 01:10 98.1 149/86 100 Room Air 04/14/17 01:05 97.8 81 14 134/81 99 Room Air 04/14/17 00:45 97.8 81 14 134/81 99 Room Air 04/13/17 23:45 92 16 149/89 99 Room Air 04/13/17 22:57 98.4 04/13/17 22:00 98.4 20 180/115 99 Room Air 04/13/17 22:00 98.4 107 20 180/115 99 Room Air Intake and Output 04/13/17 04/14/17 19:00 07:00 Intake Total 1000 ml Balance 1000 ml Intake Oral 0 ml IV Total 1000 ml Laboratory Tests Test 04/13/17 22:20 04/13/17 23:10 White Blood Count 10.4 K/UL (4.8-10.8) Red Blood Count 4.47 M/UL (4.20-5.40) Hemoglobin 15.6 G/DL (12.0-16.0) Hematocrit 46.4 % (37.0-47.0) Mean Corpuscular Volume 104 FL (80-99) H Mean Corpuscular Hemoglobin 34.9 PG (27.0-31.0) H Mean Corpuscular Hemoglobin Concent 33.6 G/DL (32.0-36.0) Red Cell Distribution Width 11.4 % (11.6-14.8) L Platelet Count 164 K/UL (150-450) Mean Platelet Volume 10.5 FL (6.5-10.1) H Neutrophils (%) (Auto) 61.1 % (45.0-75.0) Lymphocytes (%) (Auto) 23.7 % (20.0-45.0) Monocytes (%) (Auto) 9.1 % (1.0-10.0) Eosinophils (%) (Auto) 4.8 % (0.0-3.0) H Basophils (%) (Auto) 1.2 % (0.0-2.0) Sodium Level 138 mEQ/L (135-145) Potassium Level 3.4 mEQ/L (3.4-4.9) Chloride Level 100 mEQ/L (98-107) Carbon Dioxide Level 19 mEQ/L (20-30) L Anion Gap 19 (5-15) H Blood Urea Nitrogen 7 mg/dL (7-23) Creatinine 0.8 mg/dL (0.5-0.9) Estimat Glomerular Filtration Rate > 60 mL/min (>60) Glucose Level 82 mg/dL (74-106) Calcium Level 9.5 mg/dL (8.6-10.2) Total Bilirubin 0.5 mg/dL (0.0-1.2) Aspartate Amino Transf (AST/SGOT) 32 U/L (5-40) Alanine Aminotransferase (ALT/SGPT) 30 U/L (3-33) Alkaline Phosphatase 41 U/L (35-104) Total Protein 7.1 g/dL (6.6-8.7) Albumin 4.5 g/dL (3.5-5.2) Globulin 2.6 g/dL Albumin/Globulin Ratio 1.7 (1.0-2.7) Lipase 34 U/L (< 60) Urine Color Josy Urine Appearance Clear Urine pH 6 (4.5-8.0) Urine Specific [place] 1.025 (1.005-1.035) Urine Protein 2+ (NEGATIVE) H Urine Glucose (UA) Negative (NEGATIVE) Urine Ketones 4+ (NEGATIVE) H Urine Occult Blood 1+ (NEGATIVE) H Urine Nitrite Negative (NEGATIVE) Urine Bilirubin 1+ (NEGATIVE) H Urine Ictotest Urine Urobilinogen 1 MG/DL (0.0-1.0) H Urine Leukocyte Esterase 1+ (NEGATIVE) H Urine RBC 0-2 /HPF (0 - 2) Urine WBC 0-2 /HPF (0 - 2) Urine Squamous Epithelial Cells Moderate /LPF (NONE/OCC) H Urine Bacteria Occasional /HPF (NONE) Urine Mucus Few /LPF (NONE/OCC) H Urine HCG, Qualitative Negative Urine Opiates Screen Positive (NEGATIVE) H Urine Barbiturates Screen Negative (NEGATIVE) Phencyclidine (PCP) Screen Negative (NEGATIVE) Urine Amphetamines Screen Positive (NEGATIVE) H Urine Benzodiazepines Screen Negative (NEGATIVE) Urine Cocaine Screen Negative (NEGATIVE) Urine Marijuana (THC) Screen Negative (NEGATIVE) Height (Feet): 5 Height (Inches): 3.00 Weight (Pounds): 160 Medications Current Medications Medications (Trade) Dose Ordered Sig/Bryant Route PRN Reason Start Time Stop Time Status Last Admin Dose Admin Acetaminophen (Tylenol) 650 mg Q4H PRN ORAL fever 04/14/17 00:45 05/14/17 00:44 04/14/17 02:43 Al Hydroxide/Mg Hydroxide (Mylanta II) 30 ml Q6H PRN ORAL dyspepsia 04/14/17 00:45 05/14/17 00:44 Albuterol/ Ipratropium (DuoNeb 0.5-3(2.5)mg/3ml) 3 ml Q4H PRN HHN Shortness of Breath 04/14/17 11:45 04/19/17 11:44 Amlodipine Besylate (Norvasc) 2.5 mg DAILY ORAL 04/14/17 12:30 05/14/17 12:29 04/14/17 12:28 Dextrose (Dextrose 50%) STAT PRN IV Hypoglycemia 04/14/17 00:45 05/14/17 00:44 Dextrose/Sodium Chloride (D5 0.45% NS) 1,000 ml @ 75 mls/hr [id number] IV 04/14/17 07:00 05/14/17 06:59 04/14/17 07:00 Diphenhydramine HCl (Benadryl) 25 mg Q6H PRN ORAL Itching/Pruritis 04/14/17 00:45 05/14/17 00:44 Heparin Sodium (Porcine) (Heparin 5000 units/ml) 5,000 units EVERY 12 HOURS SUBQ 04/14/17 09:00 05/14/17 08:59 04/14/17 08:21 Labetalol HCl (Normodyne) 100 mg EVERY 12 HOURS ORAL 04/14/17 09:00 05/14/17 08:59 04/14/17 08:18 Lorazepam 1 mg 1 mg EVERY 4 HOURS PRN IV agitation 04/14/17 00:45 04/21/17 00:44 Morphine Sulfate (Morphine Sulfate) 2 mg Q3H PRN IVP severe Pain (Pain Scale 7-10) 04/14/17 12:00 04/21/17 11:59 04/14/17 12:29 Nitroglycerin (Ntg) 0.4 mg Q5M X 3 DOSES PRN SL Prn Chest Pain 04/14/17 00:45 05/14/17 00:44 Ondansetron HCl (Zofran) 4 mg Q6H PRN IVP Nausea & Vomiting 04/14/17 00:45 05/14/17 00:44 04/14/17 11:16 Pantoprazole (Protonix) 40 mg DAILY IV 04/14/17 09:00 05/14/17 08:59 04/14/17 08:18 Polyethylene Glycol (Miralax) 17 gm HSPRN PRN ORAL Constipation 04/14/17 00:45 05/14/17 00:44 Promethazine HCl (Phenergan) 25 mg EVERY 8 HOURS PRN IV refractory nausea 04/14/17 00:45 05/14/17 00:44 Temazepam (Restoril) 15 mg HSPRN PRN ORAL Insomnia 04/14/17 00:45 04/21/17 00:44 Tramadol HCl (Ultram) 50 mg Q6H PRN ORAL Moderate Pain (Pain Scale 4-6) 04/14/17 09:37 04/21/17 00:44 Assessment/Plan Assessment/Plan (1) Intractable Abdominal pain (2) R/O cyclical vomiting syndrome (3) Amphetamine abuse Seen dictated SHANNON GARSIA Apr 14, 2017 15:47
[2017-04-14] MEDS ORDERED: D5 1/2NS 1,000 ML IV SCH (17:40)
[2017-04-14] MEDS ORDERED: D5 1/2NS 1000ml IV ONE (22:50)
[2017-04-15] VITALS: BP 129/74
--- NOTE | 2017-04-15 00:15 | Consultation ---
DATE OF CONSULTATION: 04/14/2017 PAIN MANAGEMENT CONSULTATION CONSULTING PHYSICIAN: John Delgadillo M.D. REFERRING PHYSICIAN: Abigail Clements M.D. PHYSICIAN PHYSICAL DESIGN ENGINEER: Eliz Diggs CHIEF COMPLAINT: Abdominal pain. HISTORY OF PRESENT ILLNESS: This is a 36-year-old female, who has being seen on the Medical[facility]Surgical floor of [facility] for initial comprehensive pain management consultation. The patient reports that she has been having issues with abdominal pain, chronic nausea, vomiting, and diarrhea, reporting that it started four years ago and is an off and on issue that reoccurs every year and has reoccurred over the past nine days. It is a constant pain, which she again states is a chronic on acute pain, rating at 10/10 and describing it as a sharp pain and caused her to have severe diarrhea, nausea, and vomiting. The patient reports she had never had any endoscopy or colonoscopy, and urine is positive for amphetamines and opioids, which she denies taking any amphetamines. At this time, the patient is on morphine 2 mg IV every three hours as needed for severe pain and tramadol 50 mg tablet every six hours as needed for moderate pain. Pain at this time is 5/10, controlled on the current medication regimen. The patient is being seen by drafter castings who will decide next treatment plan for the nausea, vomiting, and abdominal pain. We were consulted so that the patient would have adequate pain control while here in the hospital. PAST MEDICAL HISTORY: Brain aneurysm, asthma, and hypertension. MEDICATIONS: Albuterol, ProAir, QVAR, Macrobid, albuterol, Zofran, and Ultram. ALLERGIES: No known drug allergies. SOCIAL HISTORY: Smokes tobacco, drinks alcohol, and denies intravenous drug abuse. REVIEW OF SYSTEMS: Denies rash, fever, chills, sweating, dizziness, drowsiness, blurred vision, sore throat, or change in her weight. No bowel or bladder incontinence. No dysuria. She is complaining of abdominal pain, nausea, vomiting, and diarrhea. PHYSICAL EXAMINATION: GENERAL: Alert, awake, and oriented. VITAL SIGNS: Blood pressure 182/104, oxygen saturation is 97%, respiratory rate is 18, heart rate is 81, and temperature is 97.7 degrees Fahrenheit. Height is 5 feet 3 inches and weight 160 pounds. HEENT: PERRLA. NECK: Range of motion is full in all directions. No tenderness to paracervical muscles. No adenopathy. LUNGS: Clear. HEART: S1 and S2 regular. ABDOMEN: Tenderness to palpation. BACK: Range of motion is full on flexion and extension. No tenderness to paraspinous muscles, trapezius, or rhomboid muscles. EXTREMITIES: Upper extremity range of motion is full in all directions. No cyanosis. No clubbing. No edema. Sensory is intact. Reflexes are not obtainable. No adenopathy. Lower extremity range of motion is full in all directions. Motor is intact. No cyanosis. No clubbing. No edema. Sensory is intact. Reflexes are not obtainable. No adenopathy. ASSESSMENT AND PLAN: This is a 36-year-old female with abdominal pain, rule out cyclical vomiting syndrome, amphetamine abuse. Again, urine toxicology was positive for amphetamines, however, the patient is denying. The patient will be followed by drafter castings and will be continued on morphine 2 mg IV every three hours as needed for severe pain and tramadol 50 mg tablet every six hours as needed for moderate pain. The patient was discussed with Dr. Delgadillo and Dr. Delgadillo concurred. We will follow the patient. Thank you very much for the courtesy of this consultation. John Delgadillo M.D. REINIER Diggs DR: SANDI JOB#: [id number] CC: SARAH
[2017-04-15] MEDS: Morphine Sulfate 2mg/ml Inj IVP PRN ×7 (01:18→21:43)
[2017-04-15 04:00] VITALS: BP 184/96
[2017-04-15 06:51] LABS: BASOPHILS % (AUTO) 1.2 % (0.0-2.0); EOSINOPHILS % (AUTO) 5.8 % (0.0-3.0); LYMPHOCYTES % (AUTO) 24.7 % (20.0-45.0); MEAN CORPUSCULAR HEMOGLOBIN 35.1 PG (27.0-31.0); MEAN CORPUSCULAR HGB CONC 33.4 G/DL (32.0-36.0); MEAN CORPUSCULAR VOLUME 105 FL (80-99); MEAN PLATELET VOLUME 11.3 FL (6.5-10.1); NEUTROPHILS % (AUTO) 57.4 % (45.0-75.0); PLATELET COUNT 143 K/UL (150-450); RED BLOOD COUNT 4.16 M/UL (4.20-5.40); RED CELL DISTRIBUTION WIDTH 11.7 % (11.6-14.8); WHITE BLOOD COUNT 7.2 K/UL (4.8-10.8)
[2017-04-15 06:52] LABS: ALANINE AMINOTRANSFERASE 27 U/L (3-33); ALBUMIN/GLOBULIN RATIO 1.4 (1.0-2.7); AMYLASE 69 U/L (10-110); ANION GAP 12 (5-15); ASPARTATE AMINO TRANSFERASE 33 U/L (5-40); CALCIUM 8.7 mg/dL (8.6-10.2); CARBON DIOXIDE 22 mEQ/L (20-30); CHLORIDE 105 mEQ/L (98-107); CREATININE 0.6 mg/dL (0.5-0.9); GLOMERULAR FILTRATION RATE > 60 mL/min (>60); HEMOLYSIS 4; LIPASE 71 U/L (< 60); POTASSIUM 3.6 mEQ/L (3.4-4.9); SODIUM 139 mEQ/L (135-145)
--- NOTE | 2017-04-15 06:57 | General Progress Note ---
Assessment/Plan Problem List: (1) Diverticulosis ICD Codes: K57.90 - Diverticulosis of intestine, part unspecified, without perforation or abscess without bleeding SNOMED: 308117550 (2) Fatty liver ICD Codes: K76.0 - Fatty (change of) liver, not elsewhere classified SNOMED: 343982458 (3) Abdominal pain ICD Codes: R10.9 - Unspecified abdominal pain SNOMED: 95769048 Qualifiers: Qualified Codes: R10.84 - Generalized abdominal pain (4) Hypertension ICD Codes: I10 - Essential (primary) hypertension SNOMED: 35708835, 505360809 Qualifiers: Qualified Codes: I10 - Essential (primary) hypertension (5) Intractable vomiting with nausea ICD Codes: R11.2 - Nausea with vomiting, unspecified SNOMED: 457971769, 795922406 Qualifiers: Qualified Codes: R11.2 - Nausea with vomiting, unspecified (6) Asthma ICD Codes: J45.909 - Unspecified asthma, uncomplicated SNOMED: 154338610 (7) Amphetamine abuse ICD Codes: F15.10 - Other stimulant abuse, uncomplicated SNOMED: 55579018 Assessment/Plan avoid drugs no obvious pathology to explain her symptoms seen on CT and US advance diet dc planning per primary team Subjective ROS Limited/Unobtainable: Yes Allergies: Coded Allergies: No Known Allergies (Unverified , 04/09/17) Subjective no event Objective Last 24 Hour Vital Signs Date Time Temp Pulse Resp B/P Pulse Ox O2 Delivery O2 Flow Rate FiO2 04/15/17 04:00 98.8 62 18 184/96 97 Nasal Cannula 2.0 04/15/17 00:00 98.2 66 17 129/74 97 Room Air 04/14/17 20:48 88 204/112 04/14/17 20:00 98.4 88 19 204/112 95 Room Air 04/14/17 16:25 98.6 72 15 140/78 98 Room Air 04/14/17 12:58 97.7 81 18 182/104 97 Room Air 04/14/17 12:28 97 182/104 04/14/17 08:42 97.3 67 15 140/69 100 Room Air 04/14/17 08:18 86 157/95 Intake and Output 04/14/17 04/15/17 19:00 07:00 Intake Total 1100 ml 120 ml Balance 1100 ml 120 ml Intake Oral 200 ml 120 ml IV Total 900 ml # Voids 5 4 # Bowel Movements 1 Laboratory Tests 04/15/17 04:50: White Blood Count [Pending], Red Blood Count [Pending], Hemoglobin [Pending], Hematocrit [Pending], Mean Corpuscular Volume [Pending], Mean Corpuscular Hemoglobin [Pending], Mean Corpuscular Hemoglobin Concent [Pending], Red Cell Distribution Width [Pending], Platelet Count [Pending], Mean Platelet Volume [ Pending], Neutrophils (%) (Auto) [Pending], Lymphocytes (%) (Auto) [Pending], Monocytes (%) (Auto) [Pending], Eosinophils (%) (Auto) [Pending], Basophils (%) (Auto) [Pending], Activated Partial Thromboplast Time 29, Sodium Level [Pending] , Potassium Level [Pending], Chloride Level [Pending], Carbon Dioxide Level [ Pending], Blood Urea Nitrogen [Pending], Creatinine [Pending], Estimat Glomerular Filtration Rate [Pending], Glucose Level [Pending], Calcium Level [ Pending], Total Bilirubin [Pending], Aspartate Amino Transf (AST/SGOT) [Pending] , Alanine Aminotransferase (ALT/SGPT) [Pending], Alkaline Phosphatase [Pending] , Total Protein [Pending], Albumin [Pending], Globulin [Pending], Amylase Level [Pending], Lipase [Pending] Height (Feet): 5 Height (Inches): 3.00 Weight (Pounds): 160 General Appearance: alert EENT: normal ENT inspection Neck: supple Cardiovascular: normal peripheral pulses Respiratory/Chest: lungs clear Abdomen: normal bowel sounds, non tender, soft Extremities: non-tender EMILY ESPINO Apr 15, 2017 06:57
[2017-04-15 08:00] VITALS: BP 177/99
--- NOTE | 2017-04-15 08:55 | Pulmonology Progress Note ---
Assessment/Plan Assessment/Plan ASSESSMENT abdominal pain intractable nausea and vomiting HTN urgency dehydration possible cyclic vomiting disorder diverticulosis ( w/out diverticulitis) fatty liver amphetamine abuse asthma smoker PLAN OF CARE [facility] floor started on diet as tolerated , unable to eat IVF , decrease rate to 50 pain management a/emetic prn, add Reglan and try Reglan instead of Zofran GI eval appreciated CT A/P Mild sigmoid diverticulosis. No definite diverticulitis. Fatty liver abdominal US with moderate fatty infiltration of the liver. per GI no obvious findings on CT A/P and US to explain patient symptoms n/v/ with abd pain ? cyclic vomiting syndrome vs drug induced vs fatty liver doubt other pathology with normal LFT stool C dif negative BP management, increase dose of CCB and add Clonidine prn , titrate further as needed O2 HHN prn stable on RA drug and alcohol counselor on abstinence from street drug and smoking cessation patient adamant that she is not using any drugs will repeat urine tox screen outpatient follow up with GI for fatty liver management case discussed and evaluated by supervising physician Subjective Allergies: Coded Allergies: No Known Allergies (Unverified , 04/09/17) Subjective started on diet still reports abdominal pain with n/v/ BP elevated states that she enver used drugs ( occasional beer and smoking only) , request to repeat urine tox screen Objective Last 24 Hour Vital Signs Date Time Temp Pulse Resp B/P Pulse Ox O2 Delivery O2 Flow Rate FiO2 04/15/17 07:44 Nasal Cannula 2.0 28 04/15/17 07:44 97 Nasal Cannula 2.0 28 04/15/17 07:44 73 18 Nasal Cannula 2.0 28 04/15/17 04:00 98.8 62 18 184/96 97 Nasal Cannula 2.0 04/15/17 00:00 98.2 66 17 129/74 97 Room Air 04/14/17 20:48 88 204/112 04/14/17 20:00 98.4 88 19 204/112 95 Room Air 04/14/17 16:25 98.6 72 15 140/78 98 Room Air 04/14/17 12:58 97.7 81 18 182/104 97 Room Air 04/14/17 12:28 97 182/104 Intake and Output 04/14/17 04/15/17 19:00 07:00 Intake Total 1100 ml 945 ml Balance 1100 ml 945 ml Intake Oral 200 ml 120 ml IV Total 900 ml 825 ml # Voids 5 4 # Bowel Movements 1 Objective General Appearance: alert, overweight - A/A/O x 3 female in mild distress Lines, tubes and drains: peripheral HEENT: normocephalic, atraumatic, anicteric Neck: non-tender, supple Respiratory/Chest: chest wall non-tender, lungs clear, no respiratory distress , no accessory muscle use Cardiovascular/Chest: normal peripheral pulses, normal rate, regular rhythm Abdomen: normal bowel sounds, non tender, soft - obese Extremities: normal range of motion, non-tender, no calf tenderness, normal capillary refill 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: 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, no motor/sensory deficits, alert, oriented x 3, responsive Musculoskeletal: normal muscle bulk Microbiology Date/Time Source Procedure Growth Status 04/14/17 19:00 Stool Clostridium difficile Toxin Assay - Final Complete Laboratory Tests 04/15/17 04:50: White Blood Count 7.2, Red Blood Count 4.16L, Hemoglobin 14.6, Hematocrit 43.7, Mean Corpuscular Volume 105H, Mean Corpuscular Hemoglobin 35.1H, Mean Corpuscular Hemoglobin Concent 33.4, Red Cell Distribution Width 11.7, Platelet Count 143L, Mean Platelet Volume 11.3H, Neutrophils (%) (Auto) 57.4, Lymphocytes (%) (Auto) 24.7, Monocytes (%) (Auto) 11.0H, Eosinophils (%) (Auto) 5.8H, Basophils (%) (Auto) 1.2, Activated Partial Thromboplast Time 29, Sodium Level 139, Potassium Level 3.6, Chloride Level 105, Carbon Dioxide Level 22, Anion Gap 12, Blood Urea Nitrogen 3L, Creatinine 0.6, Estimat Glomerular Filtration Rate > 60, Glucose Level 109H, Calcium Level 8.7, Total Bilirubin 0.3 , Aspartate Amino Transf (AST/SGOT) 33, Alanine Aminotransferase (ALT/SGPT) 27, Alkaline Phosphatase 35, Total Protein 6.0L, Albumin 3.5, Globulin 2.5, Albumin/ Globulin Ratio 1.4, Amylase Level 69, Lipase 71H Current Medications Medications (Trade) Dose Ordered Sig/Bryant Route PRN Reason Start Time Stop Time Status Last Admin Dose Admin Acetaminophen (Tylenol) 650 mg Q4H PRN ORAL fever 04/14/17 00:45 05/14/17 00:44 04/14/17 20:34 Al Hydroxide/Mg Hydroxide (Mylanta II) 30 ml Q6H PRN ORAL dyspepsia 04/14/17 00:45 05/14/17 00:44 Albuterol/ Ipratropium (DuoNeb 0.5-3(2.5)mg/3ml) 3 ml Q4H PRN HHN Shortness of Breath 04/14/17 11:45 04/19/17 11:44 Amlodipine Besylate (Norvasc) 5 mg DAILY ORAL 04/15/17 09:00 05/15/17 08:59 Clonidine HCl (Catapres) 0.1 mg EVERY 6 HOURS PRN ORAL For High Blood Pressure 04/15/17 08:45 05/15/17 08:44 Dextrose (Dextrose 50%) STAT PRN IV Hypoglycemia 04/14/17 00:45 05/14/17 00:44 Dextrose/Sodium Chloride (D5 0.45% NS) 1,000 ml @ 75 mls/hr [id number] IV 04/14/17 07:00 05/14/17 06:59 04/14/17 20:48 Diphenhydramine HCl (Benadryl) 25 mg Q6H PRN ORAL Itching/Pruritis 04/14/17 00:45 05/14/17 00:44 Heparin Sodium (Porcine) (Heparin 5000 units/ml) 5,000 units EVERY 12 HOURS SUBQ 04/14/17 09:00 05/14/17 08:59 04/14/17 20:37 Labetalol HCl (Normodyne) 100 mg EVERY 12 HOURS ORAL 04/14/17 09:00 05/14/17 08:59 04/14/17 20:48 Lorazepam 1 mg 1 mg EVERY 4 HOURS PRN IV agitation 04/14/17 00:45 04/21/17 00:44 Morphine Sulfate (Morphine Sulfate) 2 mg Q3H PRN IVP severe Pain (Pain Scale 7-10) 04/14/17 12:00 04/21/17 11:59 04/15/17 07:30 Nitroglycerin (Ntg) 0.4 mg Q5M X 3 DOSES PRN SL Prn Chest Pain 04/14/17 00:45 05/14/17 00:44 Ondansetron HCl (Zofran) 4 mg Q6H PRN IVP Nausea & Vomiting 04/14/17 00:45 05/14/17 00:44 04/14/17 21:54 Pantoprazole (Protonix) 40 mg DAILY IV 04/14/17 09:00 05/14/17 08:59 04/14/17 08:18 Polyethylene Glycol (Miralax) 17 gm HSPRN PRN ORAL Constipation 04/14/17 00:45 05/14/17 00:44 Promethazine HCl (Phenergan) 25 mg EVERY 8 HOURS PRN IV refractory nausea 04/14/17 00:45 05/14/17 00:44 Temazepam (Restoril) 15 mg HSPRN PRN ORAL Insomnia 04/14/17 00:45 04/21/17 00:44 Tramadol HCl (Ultram) 50 mg Q6H PRN ORAL Moderate Pain (Pain Scale 4-6) 04/14/17 09:37 04/21/17 00:44 [place] [facility])Halley NP Apr 15, 2017 08:55
[2017-04-15] MEDS ORDERED: Metoclopramide 10mg/2ml Inj IVP PRN (09:00)
[2017-04-15] MEDS: Heparin 5000 units/ml inj SUBQ SCH ×2 (09:00→21:00)
[2017-04-15] MEDS: traMADol 50mg tab ORAL PRN ×3 (09:05→23:47)
[2017-04-15] MEDS: Pantoprazole Inj IV SCH (09:09)
[2017-04-15] MEDS: D5 1/2NS 1,000 ML IV SCH (10:00)
[2017-04-15] MEDS ORDERED: D5 1/2NS 1000ml IV ONE (10:39)
[2017-04-15 12:00] VITALS: BP 154/87
[2017-04-15 16:17] VITALS: BP 136/91
[2017-04-15 20:00] VITALS: BP 173/99
[2017-04-16] VITALS: BP 177/91
[2017-04-16] MEDS: Morphine Sulfate 2mg/ml Inj IVP PRN ×6 (00:45→22:11)
[2017-04-16 04:00] VITALS: BP 132/79
[2017-04-16] MEDS: D5 1/2NS 1,000 ML IV SCH (05:08)
[2017-04-16] MEDS: traMADol 50mg tab ORAL PRN ×3 (07:43→21:00)
[2017-04-16 08:21] LABS: EOSINOPHILS % (AUTO) 5.6 % (0.0-3.0); LYMPHOCYTES % (AUTO) 27.1 % (20.0-45.0); MEAN CORPUSCULAR HEMOGLOBIN 34.8 PG (27.0-31.0); MEAN CORPUSCULAR HGB CONC 33.2 G/DL (32.0-36.0); MEAN CORPUSCULAR VOLUME 105 FL (80-99); MEAN PLATELET VOLUME 10.6 FL (6.5-10.1); MONOCYTES % (AUTO) 11.7 % (1.0-10.0); NEUTROPHILS % (AUTO) 54.6 % (45.0-75.0); PLATELET COUNT 136 K/UL (150-450); RED BLOOD COUNT 3.95 M/UL (4.20-5.40); RED CELL DISTRIBUTION WIDTH 11.7 % (11.6-14.8); WHITE BLOOD COUNT 7.5 K/UL (4.8-10.8)
[2017-04-16 08:29] LABS: ANION GAP 13 (5-15); CALCIUM 8.7 mg/dL (8.6-10.2); CARBON DIOXIDE 23 mEQ/L (20-30); CHLORIDE 102 mEQ/L (98-107); CREATININE 0.6 mg/dL (0.5-0.9); GLOMERULAR FILTRATION RATE > 60 mL/min (>60); HEMOLYSIS 5; POTASSIUM 3.2 mEQ/L (3.4-4.9); SODIUM 138 mEQ/L (135-145)
[2017-04-16 08:37] VITALS: BP 159/94
[2017-04-16] MEDS: Pantoprazole Inj IV SCH (08:53)
[2017-04-16] MEDS: Heparin 5000 units/ml inj SUBQ SCH ×2 (08:55→20:17)
--- NOTE | 2017-04-16 09:06 | Pulmonology Progress Note ---
Assessment/Plan Assessment/Plan ASSESSMENT abdominal pain due to cyclic vomiting vs drugs? vs fatty liver intractable nausea and vomiting HTN urgency dehydration possible cyclic vomiting disorder diverticulosis ( w/out diverticulitis) fatty liver ? possible amphetamine abuse asthma smoker hypokalemia PLAN OF CARE [facility] floor started on diet as tolerated , unable to eat IVF , decrease rate to 50 pain management a/emetic prn, add Reglan and try Reglan instead of Zofran GI eval appreciated CT A/P Mild sigmoid diverticulosis. No definite diverticulitis. Fatty liver abdominal US with moderate fatty infiltration of the liver. per GI no obvious findings on CT A/P and US to explain patient symptoms n/v/ with abd pain ? cyclic vomiting syndrome vs drug induced vs fatty liver doubt other pathology with normal LFT stool C dif negative BP management, with CCB and Clonidine prn; titrate further as needed O2 HHN prn stable on RA counseling services manager on abstinence from street drug and smoking cessation patient was adamant that she was not using any drugs repeated urine tox screen negative for amphetamines outpatient follow up with GI for fatty liver management replace K, check K and Mg in am check lipase in am case discussed and evaluated by supervising physician Subjective Allergies: Coded Allergies: No Known Allergies (Unverified , 04/09/17) Subjective started on diet 04/15 not eating due to nausea and abdominal pain, but drinking water still reports abdominal pain with n/v/ diarrhea no blood in emesis or stool BP elevated Objective Last 24 Hour Vital Signs Date Time Temp Pulse Resp B/P Pulse Ox O2 Delivery O2 Flow Rate FiO2 04/16/17 08:54 62 159/94 04/16/17 08:54 62 159/94 04/16/17 08:37 97.8 62 20 159/94 98 Room Air 04/16/17 07:50 Nasal Cannula 2.0 04/16/17 07:50 98 Nasal Cannula 2.0 04/16/17 07:50 61 18 Nasal Cannula 2.0 04/16/17 04:00 97.9 80 20 132/79 99 Room Air 04/16/17 00:00 98.1 80 20 177/91 95 Room Air 04/15/17 21:32 65 173/99 04/15/17 20:33 Nasal Cannula 2.0 04/15/17 20:33 97 Nasal Cannula 2.0 04/15/17 20:32 71 18 Nasal Cannula 2.0 28 04/15/17 20:00 98.1 65 20 173/99 99 Room Air 04/15/17 16:17 97.2 59 14 136/91 99 04/15/17 12:00 98.0 66 20 154/87 98 Room Air 04/15/17 09:09 76 177/99 04/15/17 09:08 177/99 04/15/17 09:08 76 177/99 Intake and Output 04/15/17 04/16/17 19:00 07:00 Intake Total 550 ml 350 ml Balance 550 ml 350 ml Intake Oral 500 ml IV Total 50 ml 350 ml # Voids 2 4 Objective General Appearance: alert, overweight - A/A/O x 3 female in mild distress Lines, tubes and drains: peripheral HEENT: normocephalic, atraumatic, anicteric Neck: non-tender, supple Respiratory/Chest: chest wall non-tender, lungs clear, no respiratory distress , no accessory muscle use Cardiovascular/Chest: normal peripheral pulses, normal rate, regular rhythm Abdomen: normal bowel sounds, non tender, soft - obese Extremities: normal range of motion, non-tender, no calf tenderness, normal capillary refill 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 normal, no motor/sensory deficits, alert, oriented x 3, responsive Musculoskeletal: normal muscle bulk Microbiology Date/Time Source Procedure Growth Status 04/14/17 19:00 Stool Clostridium difficile Toxin Assay - Final Complete Laboratory Tests 04/15/17 09:00: Urine Opiates Screen PositiveH, Urine Barbiturates Screen Negative, Phencyclidine (PCP) Screen Negative, Urine Amphetamines Screen Negative, Urine Benzodiazepines Screen Negative, Urine Cocaine Screen Negative, Urine Marijuana (THC) Screen Negative 04/16/17 07:00: White Blood Count 7.5, Red Blood Count 3.95L, Hemoglobin 13.7, Hematocrit 41.4, Mean Corpuscular Volume 105H, Mean Corpuscular Hemoglobin 34.8H, Mean Corpuscular Hemoglobin Concent 33.2, Red Cell Distribution Width 11.7, Platelet Count 136L, Mean Platelet Volume 10.6H, Neutrophils (%) (Auto) 54.6, Lymphocytes (%) (Auto) 27.1, Monocytes (%) (Auto) 11.7H, Eosinophils (%) (Auto) 5.6H, Basophils (%) (Auto) 1.0, Sodium Level 138, Potassium Level 3.2L, Chloride Level 102, Carbon Dioxide Level 23, Anion Gap 13, Blood Urea Nitrogen 3L, Creatinine 0.6, Estimat Glomerular Filtration Rate > 60, Glucose Level 99, Calcium Level 8.7 Current Medications Medications (Trade) Dose Ordered Sig/Bryant Route PRN Reason Start Time Stop Time Status Last Admin Dose Admin Acetaminophen (Tylenol) 650 mg Q4H PRN ORAL fever 04/14/17 00:45 05/14/17 00:44 04/15/17 13:15 Al Hydroxide/Mg Hydroxide (Mylanta II) 30 ml Q6H PRN ORAL dyspepsia 04/14/17 00:45 05/14/17 00:44 Albuterol/ Ipratropium (DuoNeb 0.5-3(2.5)mg/3ml) 3 ml Q4H PRN HHN Shortness of Breath 04/14/17 11:45 04/19/17 11:44 Amlodipine Besylate (Norvasc) 5 mg DAILY ORAL 04/15/17 09:00 05/15/17 08:59 04/16/17 08:54 Clonidine HCl 0.1 mg 0.1 mg EVERY 6 HOURS PRN ORAL For High Blood Pressure 04/15/17 08:45 05/15/17 08:44 04/15/17 09:08 Dextrose (Dextrose 50%) STAT PRN IV Hypoglycemia 04/14/17 00:45 05/14/17 00:44 Dextrose/Sodium Chloride (D5 0.45% NS) 1,000 ml @ 50 mls/hr Q20H IV 04/15/17 10:00 05/15/17 09:59 04/16/17 05:08 Diphenhydramine HCl (Benadryl) 25 mg Q6H PRN ORAL Itching/Pruritis 04/14/17 00:45 05/14/17 00:44 Heparin Sodium (Porcine) (Heparin 5000 units/ml) 5,000 units EVERY 12 HOURS SUBQ 04/14/17 09:00 05/14/17 08:59 04/14/17 20:37 Labetalol HCl (Normodyne) 100 mg EVERY 12 HOURS ORAL 04/14/17 09:00 05/14/17 08:59 04/16/17 08:54 Lorazepam (Ativan 2mg/ml 1ml) 1 mg EVERY 4 HOURS PRN IV agitation 04/14/17 00:45 04/21/17 00:44 Metoclopramide HCl (Reglan) 5 mg Q6H PRN IVP Nausea & Vomiting 04/15/17 09:00 05/15/17 08:59 Morphine Sulfate (Morphine Sulfate) 2 mg Q3H PRN IVP severe Pain (Pain Scale 7-10) 04/14/17 12:00 04/21/17 11:59 04/16/17 08:53 Nitroglycerin (Ntg) 0.4 mg Q5M X 3 DOSES PRN SL Prn Chest Pain 04/14/17 00:45 05/14/17 00:44 Ondansetron HCl (Zofran) 4 mg Q6H PRN IVP Nausea & Vomiting 04/14/17 00:45 05/14/17 00:44 04/14/17 21:54 Pantoprazole (Protonix) 40 mg DAILY IV 04/14/17 09:00 05/14/17 08:59 04/16/17 08:53 Polyethylene Glycol (Miralax) 17 gm HSPRN PRN ORAL Constipation 04/14/17 00:45 05/14/17 00:44 Promethazine HCl (Phenergan) 25 mg EVERY 8 HOURS PRN IV refractory nausea 04/14/17 00:45 05/14/17 00:44 Temazepam (Restoril) 15 mg HSPRN PRN ORAL Insomnia 04/14/17 00:45 04/21/17 00:44 Tramadol HCl (Ultram) 50 mg Q6H PRN ORAL Moderate Pain (Pain Scale 4-6) 04/14/17 09:37 04/21/17 00:44 04/16/17 07:43 [place] [facility]virt[facility]ltonHal[place] NP Apr 16, 2017 09:06
[2017-04-16] MEDS ORDERED: KCl 10% 40mEq/30ml liquid NG ONE (09:30)
--- NOTE | 2017-04-16 09:31 | General Progress Note ---
Assessment/Plan Problem List: (1) Diverticulosis ICD Codes: K57.90 - Diverticulosis of intestine, part unspecified, without perforation or abscess without bleeding SNOMED: 931069767 (2) Fatty liver ICD Codes: K76.0 - Fatty (change of) liver, not elsewhere classified SNOMED: 051625857 (3) Abdominal pain ICD Codes: R10.9 - Unspecified abdominal pain SNOMED: 67303264 Qualifiers: Qualified Codes: R10.84 - Generalized abdominal pain (4) Hypertension ICD Codes: I10 - Essential (primary) hypertension SNOMED: 34379567, [id number] Qualifiers: Qualified Codes: I10 - Essential (primary) hypertension (5) Intractable vomiting with nausea ICD Codes: R11.2 - Nausea with vomiting, unspecified SNOMED: 564525694, 430800376 Qualifiers: Qualified Codes: R11.2 - Nausea with vomiting, unspecified (6) Asthma ICD Codes: J45.909 - Unspecified asthma, uncomplicated SNOMED: 709990041 (7) Amphetamine abuse ICD Codes: F15.10 - Other stimulant abuse, uncomplicated SNOMED: 59080984 Assessment/Plan avoid drugs no obvious pathology to explain her symptoms seen on CT and US dc planning per primary team Subjective ROS Limited/Unobtainable: Yes Allergies: Coded Allergies: No Known Allergies (Unverified , 04/09/17) Subjective no event c/o abd pain Objective Last 24 Hour Vital Signs Date Time Temp Pulse Resp B/P Pulse Ox O2 Delivery O2 Flow Rate FiO2 04/16/17 08:54 62 159/94 04/16/17 08:54 62 159/94 04/16/17 08:37 97.8 62 20 159/94 98 Room Air 04/16/17 07:50 Nasal Cannula 2.0 04/16/17 07:50 98 Nasal Cannula 2.0 04/16/17 07:50 61 18 Nasal Cannula 2.0 04/16/17 04:00 97.9 80 20 132/79 99 Room Air 04/16/17 00:00 98.1 80 20 177/91 95 Room Air 04/15/17 21:32 65 173/99 04/15/17 20:33 Nasal Cannula 2.0 28 04/15/17 20:33 97 Nasal Cannula 2.0 28 04/15/17 20:32 71 18 Nasal Cannula 2.0 28 04/15/17 20:00 98.1 65 20 173/99 99 Room Air 04/15/17 16:17 97.2 59 14 136/91 99 04/15/17 12:00 98.0 66 20 154/87 98 Room Air Intake and Output 04/15/17 04/16/17 19:00 07:00 Intake Total 550 ml 350 ml Balance 550 ml 350 ml Intake Oral 500 ml IV Total 50 ml 350 ml # Voids 2 4 Laboratory Tests 04/16/17 07:00: White Blood Count 7.5, Red Blood Count 3.95L, Hemoglobin 13.7, Hematocrit 41.4, Mean Corpuscular Volume 105H, Mean Corpuscular Hemoglobin 34.8H, Mean Corpuscular Hemoglobin Concent 33.2, Red Cell Distribution Width 11.7, Platelet Count 136L, Mean Platelet Volume 10.6H, Neutrophils (%) (Auto) 54.6, Lymphocytes (%) (Auto) 27.1, Monocytes (%) (Auto) 11.7H, Eosinophils (%) (Auto) 5.6H, Basophils (%) (Auto) 1.0, Sodium Level 138, Potassium Level 3.2L, Chloride Level 102, Carbon Dioxide Level 23, Anion Gap 13, Blood Urea Nitrogen 3L, Creatinine 0.6, Estimat Glomerular Filtration Rate > 60, Glucose Level 99, Calcium Level 8.7 Height (Feet): 5 Height (Inches): 3.00 Weight (Pounds): 160 General Appearance: alert EENT: normal ENT inspection Neck: supple Cardiovascular: normal rate Respiratory/Chest: lungs clear Abdomen: normal bowel sounds, non tender, soft Extremities: non-tender EMILY ESPINO Apr 16, 2017 09:31
--- NOTE | 2017-04-16 09:59 | General Progress Note ---
Assessment/Plan Assessment/Plan (1) Intractable Abdominal pain (2) R/O cyclical vomiting syndrome (3) Amphetamine abuse (4) Diverticulosis Pt will be continued on Morphine and Tramadol. We will start the pt on Neurontin 100mg TID Pt was d/w Dr. Delgadillo and he concurred. Subjective Date patient seen: Apr 16, 2017 Time patient seen: 09:00 - am Allergies: Coded Allergies: No Known Allergies (Unverified , 04/09/17) Subjective REVIEW OF SYSTEMS: Denies rash, fever, chills, sweating, dizziness, drowsiness, blurred vision, sore throat, or change in her weight. No bowel or bladder incontinence. No dysuria. She is complaining of abdominal pain, nausea. SUBJECTIVE: Patient continues to c/o abdominal pain. GI reports that no obvious pathology to explain her symptoms seen on CT and US. The pain is tolerated on the Morphine and Tramadol. D/w Pt about Neurontin she understands. Objective Last 24 Hour Vital Signs Date Time Temp Pulse Resp B/P Pulse Ox O2 Delivery O2 Flow Rate FiO2 04/16/17 08:54 62 159/94 04/16/17 08:54 62 159/94 04/16/17 08:37 97.8 62 20 159/94 98 Room Air 04/16/17 07:50 Nasal Cannula 2.0 28 04/16/17 07:50 98 Nasal Cannula 2.0 28 04/16/17 07:50 61 18 Nasal Cannula 2.0 28 04/16/17 04:00 97.9 80 20 132/79 99 Room Air 04/16/17 00:00 98.1 80 20 177/91 95 Room Air 04/15/17 21:32 65 173/99 04/15/17 20:33 Nasal Cannula 2.0 28 04/15/17 20:33 97 Nasal Cannula 2.0 28 04/15/17 20:32 71 18 Nasal Cannula 2.0 28 04/15/17 20:00 98.1 65 20 173/99 99 Room Air 04/15/17 16:17 97.2 59 14 136/91 99 04/15/17 12:00 98.0 66 20 154/87 98 Room Air Intake and Output 04/15/17 04/16/17 19:00 07:00 Intake Total 550 ml 350 ml Balance 550 ml 350 ml Intake Oral 500 ml IV Total 50 ml 350 ml # Voids 2 4 Laboratory Tests 04/16/17 07:00: White Blood Count 7.5, Red Blood Count 3.95L, Hemoglobin 13.7, Hematocrit 41.4, Mean Corpuscular Volume 105H, Mean Corpuscular Hemoglobin 34.8H, Mean Corpuscular Hemoglobin Concent 33.2, Red Cell Distribution Width 11.7, Platelet Count 136L, Mean Platelet Volume 10.6H, Neutrophils (%) (Auto) 54.6, Lymphocytes (%) (Auto) 27.1, Monocytes (%) (Auto) 11.7H, Eosinophils (%) (Auto) 5.6H, Basophils (%) (Auto) 1.0, Sodium Level 138, Potassium Level 3.2L, Chloride Level 102, Carbon Dioxide Level 23, Anion Gap 13, Blood Urea Nitrogen 3L, Creatinine 0.6, Estimat Glomerular Filtration Rate > 60, Glucose Level 99, Calcium Level 8.7 Height (Feet): 5 Height (Inches): 3.00 Weight (Pounds): 160 Objective GENERAL: Alert, awake, and oriented. HEENT: PERRLA. NECK: Range of motion is full in all directions. No tenderness to paracervical muscles. No adenopathy. LUNGS: Clear. HEART: S1 and S2 regular. ABDOMEN: Tenderness to palpation. BACK: Range of motion is full on flexion and extension. No tenderness to paraspinous muscles, trapezius, or rhomboid muscles. EXTREMITIES: No clubbing. No edema. NEURO: No changes. SHANNON GARSIA Apr 16, 2017 09:59
[2017-04-16 12:00] VITALS: BP 138/84
[2017-04-16 16:42] VITALS: BP 158/94
[2017-04-16 20:00] VITALS: BP 163/92
[2017-04-17] VITALS: BP 137/74
[2017-04-17] MEDS: D5 1/2NS 1,000 ML IV SCH ×2 (02:23→20:44)
[2017-04-17] MEDS: Morphine Sulfate 2mg/ml Inj IVP PRN ×4 (02:24→12:55)
[2017-04-17 04:00] VITALS: BP 139/81
[2017-04-17 08:00] VITALS: BP 161/95
[2017-04-17] MEDS: Pantoprazole Inj IV SCH (08:23)
[2017-04-17] MEDS: traMADol 50mg tab ORAL PRN ×2 (08:25→17:02)
[2017-04-17 08:29] LABS: BASOPHILS % (AUTO) 1.3 % (0.0-2.0); EOSINOPHILS % (AUTO) 6.3 % (0.0-3.0); LYMPHOCYTES % (AUTO) 25.6 % (20.0-45.0); MEAN CORPUSCULAR HEMOGLOBIN 35.8 PG (27.0-31.0); MEAN CORPUSCULAR HGB CONC 34.1 G/DL (32.0-36.0); MEAN CORPUSCULAR VOLUME 105 FL (80-99); MEAN PLATELET VOLUME 12.6 FL (6.5-10.1); MONOCYTES % (AUTO) 13.1 % (1.0-10.0); NEUTROPHILS % (AUTO) 53.8 % (45.0-75.0); PLATELET COUNT 154 K/UL (150-450); RED BLOOD COUNT 3.97 M/UL (4.20-5.40); RED CELL DISTRIBUTION WIDTH 11.8 % (11.6-14.8); WHITE BLOOD COUNT 6.8 K/UL (4.8-10.8)
--- NOTE | 2017-04-17 08:34 | General Progress Note ---
Assessment/Plan Assessment/Plan (1) Intractable Abdominal pain (2) R/O cyclical vomiting syndrome (3) Amphetamine abuse (4) Diverticulosis Pt will be continued on Morphine and Tramadol. We will increase the Neurontin to 200mg TID Pt was d/w Dr. Delgadillo and he concurred. Subjective Date patient seen: Apr 17, 2017 Time patient seen: 07:45 - am Allergies: Coded Allergies: No Known Allergies (Unverified , 04/09/17) Subjective REVIEW OF SYSTEMS: Denies rash, fever, chills, sweating, dizziness, drowsiness, blurred vision, sore throat, or change in her weight. No bowel or bladder incontinence. No dysuria. She is complaining of abdominal pain, nausea. SUBJECTIVE: Her pain has slightly reduced when started on the Neurontin. I d/w her about an increase and she understands. Objective Last 24 Hour Vital Signs Date Time Temp Pulse Resp B/P Pulse Ox O2 Delivery O2 Flow Rate FiO2 04/17/17 04:00 98.2 67 20 139/81 95 Room Air 04/17/17 00:00 98.2 67 20 137/74 96 Room Air 04/16/17 20:16 74 163/92 04/16/17 20:00 98.4 74 20 163/92 98 Room Air 04/16/17 16:42 98.2 71 18 158/94 99 Nasal Cannula 04/16/17 12:00 98.0 65 20 138/84 98 Room Air 04/16/17 08:54 62 159/94 04/16/17 08:54 62 159/94 04/16/17 08:37 97.8 62 20 159/94 98 Room Air Intake and Output 04/16/17 04/17/17 19:00 07:00 Intake Total 720 ml 550 ml Balance 720 ml 550 ml Intake Oral 120 ml IV Total 600 ml 550 ml # Voids 4 # Bowel Movements 1 1 Laboratory Tests 04/17/17 07:20: White Blood Count 6.8, Red Blood Count 3.97L, Hemoglobin 14.2, Hematocrit 41.7, Mean Corpuscular Volume 105H, Mean Corpuscular Hemoglobin 35.8H, Mean Corpuscular Hemoglobin Concent 34.1, Red Cell Distribution Width 11.8, Platelet Count 154, Mean Platelet Volume 12.6H, Neutrophils (%) (Auto) 53.8, Lymphocytes (%) (Auto) 25.6, Monocytes (%) (Auto) 13.1H, Eosinophils (%) (Auto) 6.3H, Basophils (%) (Auto) 1.3, Sodium Level [Pending], Potassium Level [Pending], Chloride Level [Pending], Carbon Dioxide Level [Pending], Blood Urea Nitrogen [ Pending], Creatinine [Pending], Estimat Glomerular Filtration Rate [Pending], Glucose Level [Pending], Calcium Level [Pending], Total Bilirubin [Pending], Aspartate Amino Transf (AST/SGOT) [Pending], Alanine Aminotransferase (ALT/SGPT ) [Pending], Alkaline Phosphatase [Pending], Total Protein [Pending], Albumin [ Pending], Globulin [Pending], Triglycerides Level [Pending], Cholesterol Level [ Pending], LDL Cholesterol [Pending], HDL Cholesterol [Pending], Cholesterol/HDL Ratio [Pending], Lipase [Pending] Height (Feet): 5 Height (Inches): 3.00 Weight (Pounds): 160 Objective GENERAL: Alert, awake, and oriented. HEENT: PERRLA. NECK: Range of motion is full in all directions. No tenderness to paracervical muscles. No adenopathy. LUNGS: Clear. HEART: S1 and S2 regular. ABDOMEN: Tenderness to palpation. BACK: Range of motion is full on flexion and extension. No tenderness to paraspinous muscles, trapezius, or rhomboid muscles. EXTREMITIES: No clubbing. No edema. NEURO: No changes. SHANNON GARSIA Apr 17, 2017 08:34
[2017-04-17 08:36] LABS: ALANINE AMINOTRANSFERASE 31 U/L (3-33); ALBUMIN/GLOBULIN RATIO 1.5 (1.0-2.7); ANION GAP 11 (5-15); ASPARTATE AMINO TRANSFERASE 31 U/L (5-40); CALCIUM 8.8 mg/dL (8.6-10.2); CARBON DIOXIDE 25 mEQ/L (20-30); CHLORIDE 103 mEQ/L (98-107); CHOLESTEROL 241 mg/dL (< 200); CHOLESTEROL/HDL RATIO 7.8 (3.3-4.4); CREATININE 0.7 mg/dL (0.5-0.9); GLOMERULAR FILTRATION RATE > 60 mL/min (>60); HEMOLYSIS 12; LDL CHOLESTEROL (CALC.) 185 mg/dL (60-99); LIPASE 162 U/L (< 60); POTASSIUM 3.5 mEQ/L (3.4-4.9); SODIUM 139 mEQ/L (135-145); TOTAL PROTEIN 5.7 g/dL (6.6-8.7)
[2017-04-17] MEDS: Heparin 5000 units/ml inj SUBQ SCH ×2 (08:53→20:43)
[2017-04-17] MEDS ORDERED: Loperamide 2mg cap ORAL PRN (11:30)
--- NOTE | 2017-04-17 12:26 | GI Progress Note ---
Assessment/Plan Problems: (1) Amphetamine abuse ICD Codes: F15.10 - Other stimulant abuse, uncomplicated SNOMED: 45027853 (2) Fatty liver ICD Codes: K76.0 - Fatty (change of) liver, not elsewhere classified SNOMED: 416822999 (3) Diverticulosis ICD Codes: K57.90 - Diverticulosis of intestine, part unspecified, without perforation or abscess without bleeding SNOMED: 799926976 (4) Intractable vomiting with nausea ICD Codes: R11.2 - Nausea with vomiting, unspecified SNOMED: 427129257, 641185330 Qualifiers: Qualified Codes: R11.2 - Nausea with vomiting, unspecified (5) Abdominal pain ICD Codes: R10.9 - Unspecified abdominal pain SNOMED: 30047683 Qualifiers: Qualified Codes: R10.84 - Generalized abdominal pain (6) Dehydration ICD Codes: E86.0 - Dehydration SNOMED: 73088576, 891990580 Status: stable, unchanged Status Narrative Discussed with Dr. Alexandre. Assessment/Plan urine tox positive for amphetamines CT AP >> unremarkable lipase WNL symptomatic treatment at this time >> no obvious pathology to explain her symptoms seen on CT and US FLD, adv as tolerated IV hydration + electrolyte replacement zofran prn imodium prn H2B fu labs avoid drugs avoid opiates dc planning per primary team Subjective Subjective abdominal pain FLD Objective Last 24 Hour Vital Signs Date Time Temp Pulse Resp B/P Pulse Ox O2 Delivery O2 Flow Rate FiO2 04/17/17 08:42 Room Air 04/17/17 08:41 98 Room Air 04/17/17 08:40 Room Air 04/17/17 08:25 162/87 04/17/17 08:25 78 162/87 04/17/17 08:24 78 162/87 04/17/17 08:00 99.3 62 20 161/95 98 Room Air 04/17/17 04:00 98.2 67 20 139/81 95 Room Air 04/17/17 00:00 98.2 67 20 137/74 96 Room Air 04/16/17 20:16 74 163/92 04/16/17 20:00 98.4 74 20 163/92 98 Room Air 04/16/17 16:42 98.2 71 18 158/94 99 Nasal Cannula Intake and Output 04/16/17 04/17/17 19:00 07:00 Intake Total 720 ml 550 ml Balance 720 ml 550 ml Intake Oral 120 ml IV Total 600 ml 550 ml # Voids 4 # Bowel Movements 1 1 Laboratory Tests Test 04/17/17 07:20 White Blood Count 6.8 K/UL (4.8-10.8) Red Blood Count 3.97 M/UL (4.20-5.40) L Hemoglobin 14.2 G/DL (12.0-16.0) Hematocrit 41.7 % (37.0-47.0) Mean Corpuscular Volume 105 FL (80-99) H Mean Corpuscular Hemoglobin 35.8 PG (27.0-31.0) H Mean Corpuscular Hemoglobin Concent 34.1 G/DL (32.0-36.0) Red Cell Distribution Width 11.8 % (11.6-14.8) Platelet Count 154 K/UL (150-450) Mean Platelet Volume 12.6 FL (6.5-10.1) H Neutrophils (%) (Auto) 53.8 % (45.0-75.0) Lymphocytes (%) (Auto) 25.6 % (20.0-45.0) Monocytes (%) (Auto) 13.1 % (1.0-10.0) H Eosinophils (%) (Auto) 6.3 % (0.0-3.0) H Basophils (%) (Auto) 1.3 % (0.0-2.0) Sodium Level 139 mEQ/L (135-145) Potassium Level 3.5 mEQ/L (3.4-4.9) Chloride Level 103 mEQ/L (98-107) Carbon Dioxide Level 25 mEQ/L (20-30) Anion Gap 11 (5-15) Blood Urea Nitrogen 3 mg/dL (7-23) L Creatinine 0.7 mg/dL (0.5-0.9) Estimat Glomerular Filtration Rate > 60 mL/min (>60) Glucose Level 96 mg/dL (74-106) Calcium Level 8.8 mg/dL (8.6-10.2) Total Bilirubin 0.5 mg/dL (0.0-1.2) Aspartate Amino Transf (AST/SGOT) 31 U/L (5-40) Alanine Aminotransferase (ALT/SGPT) 31 U/L (3-33) Alkaline Phosphatase 42 U/L (35-104) Total Protein 5.7 g/dL (6.6-8.7) L Albumin 3.5 g/dL (3.5-5.2) Globulin 2.2 g/dL Albumin/Globulin Ratio 1.5 (1.0-2.7) Triglycerides Level 127 mg/dL (< 150) Cholesterol Level 241 mg/dL (< 200) H LDL Cholesterol 185 mg/dL (60-99) H HDL Cholesterol 31 mg/dL (> 60) Cholesterol/HDL Ratio 7.8 (3.3-4.4) H Lipase 162 U/L (< 60) H Height (Feet): 5 Height (Inches): 3.00 Weight (Pounds): 160 General Appearance: no apparent distress, alert, overweight Cardiovascular: normal rate Respiratory/Chest: normal breath sounds, no respiratory distress Abdominal Exam: normal bowel sounds, non tender, no organomegaly Extremities: normal range of motion Lesli Arreaga N.P. Apr 17, 2017 12:26
[2017-04-17 12:51] VITALS: BP 156/95
[2017-04-17] MEDS ORDERED: Ketorolac 30mg Inj IV PRN (15:45)
[2017-04-17 16:17] VITALS: BP 148/89
--- NOTE | 2017-04-17 19:05 | Pulmonology Progress Note ---
Assessment/Plan Problems: (1) Intrauterine device (2) Intractable vomiting with nausea (3) Abdominal pain (4) Fatty liver (5) Amphetamine abuse Assessment/Plan symptomatic treatment advance diet hold morphine, use Ketorolec instead Subjective ROS Limited/Unobtainable: No Constitutional: Reports: no symptoms HEENT: Repors: no symptoms Respiratory: Reports: no symptoms Allergies: Coded Allergies: No Known Allergies (Unverified , 04/09/17) Objective Last 24 Hour Vital Signs Date Time Temp Pulse Resp B/P Pulse Ox O2 Delivery O2 Flow Rate FiO2 04/17/17 16:17 98.4 59 19 148/89 100 Room Air 04/17/17 12:51 98.2 71 18 156/95 100 Room Air 04/17/17 08:42 Room Air 04/17/17 08:41 98 Room Air 04/17/17 08:40 Room Air 04/17/17 08:25 162/87 04/17/17 08:25 78 162/87 04/17/17 08:24 78 162/87 04/17/17 08:00 99.3 62 20 161/95 98 Room Air 04/17/17 04:00 98.2 67 20 139/81 95 Room Air 04/17/17 00:00 98.2 67 20 137/74 96 Room Air 04/16/17 20:16 74 163/92 04/16/17 20:00 98.4 74 20 163/92 98 Room Air Intake and Output 04/16/17 04/17/17 19:00 07:00 Intake Total 720 ml 550 ml Balance 720 ml 550 ml Intake Oral 120 ml IV Total 600 ml 550 ml # Voids 4 # Bowel Movements 1 1 General Appearance: WD/WN, no acute distress HEENT: normocephalic, atraumatic Respiratory/Chest: chest wall non-tender, lungs clear Cardiovascular: normal peripheral pulses Abdomen: normal bowel sounds, soft, non tender Genitourinary: normal external genitalia Laboratory Tests 04/17/17 07:20: White Blood Count 6.8, Red Blood Count 3.97L, Hemoglobin 14.2, Hematocrit 41.7, Mean Corpuscular Volume 105H, Mean Corpuscular Hemoglobin 35.8H, Mean Corpuscular Hemoglobin Concent 34.1, Red Cell Distribution Width 11.8, Platelet Count 154, Mean Platelet Volume 12.6H, Neutrophils (%) (Auto) 53.8, Lymphocytes (%) (Auto) 25.6, Monocytes (%) (Auto) 13.1H, Eosinophils (%) (Auto) 6.3H, Basophils (%) (Auto) 1.3, Sodium Level 139, Potassium Level 3.5, Chloride Level 103, Carbon Dioxide Level 25, Anion Gap 11, Blood Urea Nitrogen 3L, Creatinine 0.7, Estimat Glomerular Filtration Rate > 60, Glucose Level 96, Calcium Level 8.8, Total Bilirubin 0.5, Aspartate Amino Transf (AST/SGOT) 31, Alanine Aminotransferase (ALT/SGPT) 31, Alkaline Phosphatase 42, Total Protein 5.7L, Albumin 3.5, Globulin 2.2, Albumin/Globulin Ratio 1.5, Triglycerides Level 127, Cholesterol Level 241H, LDL Cholesterol 185H, HDL Cholesterol 31, Cholesterol/ HDL Ratio 7.8H, Lipase 162H Current Medications Medications (Trade) Dose Ordered Sig/Bryant Route PRN Reason Start Time Stop Time Status Last Admin Dose Admin Acetaminophen (Tylenol) 650 mg Q4H PRN ORAL fever 04/14/17 00:45 05/14/17 00:44 04/15/17 13:15 Al Hydroxide/Mg Hydroxide (Mylanta II) 30 ml Q6H PRN ORAL dyspepsia 04/14/17 00:45 05/14/17 00:44 Albuterol/ Ipratropium (DuoNeb 0.5-3(2.5)mg/3ml) 3 ml Q4H PRN HHN Shortness of Breath 04/14/17 11:45 04/19/17 11:44 Amlodipine Besylate (Norvasc) 5 mg DAILY ORAL 04/15/17 09:00 05/15/17 08:59 04/17/17 08:24 Clonidine HCl 0.1 mg 0.1 mg EVERY 6 HOURS PRN ORAL For High Blood Pressure 04/15/17 08:45 05/15/17 08:44 04/17/17 08:25 Dextrose (Dextrose 50%) STAT PRN IV Hypoglycemia 04/14/17 00:45 05/14/17 00:44 Dextrose/Sodium Chloride (D5 0.45% NS) 1,000 ml @ 50 mls/hr Q20H IV 04/15/17 10:00 05/15/17 09:59 04/17/17 02:23 Diphenhydramine HCl (Benadryl) 25 mg Q6H PRN ORAL Itching/Pruritis 04/14/17 00:45 05/14/17 00:44 Gabapentin (Neurontin) 200 mg THREE TIMES A DAY ORAL 04/17/17 09:00 05/17/17 08:59 04/17/17 17:02 Heparin Sodium (Porcine) (Heparin 5000 units/ml) 5,000 units EVERY 12 HOURS SUBQ 04/14/17 09:00 05/14/17 08:59 04/14/17 20:37 Ketorolac Tromethamine (Toradol 30mg) 30 mg Q6H PRN IV For Pain 04/17/17 15:45 04/22/17 15:44 Labetalol HCl (Normodyne) 100 mg EVERY 12 HOURS ORAL 04/14/17 09:00 05/14/17 08:59 04/17/17 08:25 Loperamide HCl (Imodium) 2 mg Q4H PRN ORAL Diarrhea 04/17/17 11:30 05/17/17 11:29 Lorazepam (Ativan 2mg/ml 1ml) 1 mg EVERY 4 HOURS PRN IV agitation 04/14/17 00:45 04/21/17 00:44 Metoclopramide HCl (Reglan) 5 mg Q6H PRN IVP Nausea & Vomiting 04/15/17 09:00 05/15/17 08:59 Nitroglycerin (Ntg) 0.4 mg Q5M X 3 DOSES PRN SL Prn Chest Pain 04/14/17 00:45 05/14/17 00:44 Ondansetron HCl (Zofran) 4 mg Q6H PRN IVP Nausea & Vomiting 04/14/17 00:45 05/14/17 00:44 04/16/17 21:05 Pantoprazole (Protonix) 40 mg DAILY IV 04/14/17 09:00 05/14/17 08:59 04/17/17 08:23 Polyethylene Glycol (Miralax) 17 gm HSPRN PRN ORAL Constipation 04/14/17 00:45 05/14/17 00:44 Promethazine HCl (Phenergan) 25 mg EVERY 8 HOURS PRN IV refractory nausea 04/14/17 00:45 05/14/17 00:44 Temazepam (Restoril) 15 mg HSPRN PRN ORAL Insomnia 04/14/17 00:45 04/21/17 00:44 Tramadol HCl (Ultram) 50 mg Q6H PRN ORAL Moderate Pain (Pain Scale 4-6) 04/14/17 09:37 04/21/17 00:44 04/17/17 17:02 TESSY DIXON Apr 17, 2017 19:05
[2017-04-17 20:00] VITALS: BP 148/82
[2017-04-17] MEDS ORDERED: DuoNeb 0.5-3(2.5)mg/3ml neb HHN PRN (21:45)
[2017-04-18] VITALS: BP 117/73
[2017-04-18] MEDS: traMADol 50mg tab ORAL PRN ×3 (03:45→14:18)
[2017-04-18 04:00] VITALS: BP 132/79
[2017-04-18 06:26] LABS: BASOPHILS % (AUTO) 0.7 % (0.0-2.0); EOSINOPHILS % (AUTO) 2.3 % (0.0-3.0); LYMPHOCYTES % (AUTO) 8.8 % (20.0-45.0); MEAN CORPUSCULAR HEMOGLOBIN 33.4 PG (27.0-31.0); MEAN CORPUSCULAR VOLUME 104 FL (80-99); MEAN PLATELET VOLUME 11.6 FL (6.5-10.1); MONOCYTES % (AUTO) 6.9 % (1.0-10.0); NEUTROPHILS % (AUTO) 81.2 % (45.0-75.0); PLATELET COUNT 168 K/UL (150-450); RED BLOOD COUNT 4.69 M/UL (4.20-5.40); RED CELL DISTRIBUTION WIDTH 11.6 % (11.6-14.8); WHITE BLOOD COUNT 14.1 K/UL (4.8-10.8)
[2017-04-18 07:28] LABS: ANION GAP 13 (5-15); CALCIUM 9.2 mg/dL (8.6-10.2); CARBON DIOXIDE 21 mEQ/L (20-30); CHLORIDE 104 mEQ/L (98-107); CREATININE 0.8 mg/dL (0.5-0.9); GLOMERULAR FILTRATION RATE > 60 mL/min (>60); HEMOLYSIS 6; LIPASE 122 U/L (< 60); POTASSIUM 3.9 mEQ/L (3.4-4.9); SODIUM 138 mEQ/L (135-145)
[2017-04-18 08:00] VITALS: BP 148/97
--- NOTE | 2017-04-18 08:54 | General Progress Note ---
Assessment/Plan Assessment/Plan (1) Intractable Abdominal pain (2) R/O cyclical vomiting syndrome (3) Amphetamine abuse (4) Diverticulosis Pt will be continued Tramadol. We will increase the Neurontin to 300mg TID Pt was d/w Dr. Delgadillo and he concurred. Subjective Date patient seen: Apr 18, 2017 Time patient seen: 08:00 - am Allergies: Coded Allergies: No Known Allergies (Unverified , 04/09/17) Subjective REVIEW OF SYSTEMS: Denies rash, fever, chills, sweating, dizziness, drowsiness, blurred vision, sore throat, or change in her weight. No bowel or bladder incontinence. No dysuria. She is complaining of abdominal pain. SUBJECTIVE: The patient reports that the Neurontin increase has reduced her pain. She was stopped from the Morphine and started on toradol, however patient reports Se with it and only wants to take the Tramadol. Objective Last 24 Hour Vital Signs Date Time Temp Pulse Resp B/P Pulse Ox O2 Delivery O2 Flow Rate FiO2 04/18/17 07:46 Nasal Cannula 2.0 28 04/18/17 07:45 97 Nasal Cannula 2.0 28 04/18/17 07:44 87 18 Nasal Cannula 2.0 28 04/18/17 04:00 98.8 93 18 132/79 98 Room Air 04/18/17 00:00 97.2 52 18 117/73 97 Room Air 04/17/17 22:09 116 18 95 Nasal Cannula 3.0 32 04/17/17 21:58 114 23 90 Nasal Cannula 3.0 32 04/17/17 20:41 60 148/82 04/17/17 20:04 64 18 Room Air 04/17/17 20:04 Room Air 04/17/17 20:04 Room Air 04/17/17 20:00 98.4 60 18 148/82 98 Room Air 04/17/17 16:17 98.4 59 19 148/89 100 Room Air 04/17/17 12:51 98.2 71 18 156/95 100 Room Air Intake and Output 04/17/17 04/18/17 19:00 07:00 Intake Total 920 ml 350 ml Balance 920 ml 350 ml Intake Oral 420 ml IV Total 500 ml 350 ml # Voids 4 2 # Bowel Movements 1 1 Laboratory Tests 7/25/17 05:10: White Blood Count 14.1#H, Red Blood Count 4.69, Hemoglobin 15.7, Hematocrit 49.0H, Mean Corpuscular Volume 104H, Mean Corpuscular Hemoglobin 33.4H, Mean Corpuscular Hemoglobin Concent 32.0, Red Cell Distribution Width 11.6, Platelet Count 168, Mean Platelet Volume 11.6H, Neutrophils (%) (Auto) 81.2H, Lymphocytes (%) (Auto) 8.8L, Monocytes (%) (Auto) 6.9, Eosinophils (%) (Auto) 2.3, Basophils (%) (Auto) 0.7, Sodium Level 138, Potassium Level 3.9, Chloride Level 104, Carbon Dioxide Level 21, Anion Gap 13, Blood Urea Nitrogen 4L, Creatinine 0.8, Estimat Glomerular Filtration Rate > 60, Glucose Level 102, Calcium Level 9.2, Lipase 122H Height (Feet): 5 Height (Inches): 3.00 Weight (Pounds): 160 Objective GENERAL: Alert, awake, and oriented. HEENT: PERRLA. NECK: Range of motion is full in all directions. No tenderness to paracervical muscles. No adenopathy. LUNGS: Clear. HEART: S1 and S2 regular. ABDOMEN: Tenderness to palpation. BACK: Range of motion is full on flexion and extension. No tenderness to paraspinous muscles, trapezius, or rhomboid muscles. EXTREMITIES: No clubbing. No edema. NEURO: No changes. SHANNON GARSIA Apr 18, 2017 08:54
[2017-04-18] MEDS: Pantoprazole Inj IV SCH (10:07)
[2017-04-18] MEDS: Heparin 5000 units/ml inj SUBQ SCH (10:08)
[2017-04-18 12:00] VITALS: BP 145/90
[2017-04-18 14:17] LABS: BASOPHILS % (AUTO) 0.4 % (0.0-2.0); EOSINOPHILS % (AUTO) 4.4 % (0.0-3.0); MEAN CORPUSCULAR HEMOGLOBIN 34.2 PG (27.0-31.0); MEAN CORPUSCULAR HGB CONC 32.9 G/DL (32.0-36.0); MEAN CORPUSCULAR VOLUME 104 FL (80-99); MEAN PLATELET VOLUME 12.4 FL (6.5-10.1); MONOCYTES % (AUTO) 7.3 % (1.0-10.0); NEUTROPHILS % (AUTO) 70.8 % (45.0-75.0); PLATELET COUNT 161 K/UL (150-450); RED BLOOD COUNT 4.16 M/UL (4.20-5.40); RED CELL DISTRIBUTION WIDTH 11.7 % (11.6-14.8); WHITE BLOOD COUNT 11.3 K/UL (4.8-10.8)
[2017-04-18 14:32] LABS: ANION GAP 12 (5-15); CALCIUM 9.1 mg/dL (8.6-10.2); CARBON DIOXIDE 22 mEQ/L (20-30); CHLORIDE 103 mEQ/L (98-107); CREATININE 0.7 mg/dL (0.5-0.9); GLOMERULAR FILTRATION RATE > 60 mL/min (>60); HEMOLYSIS 5; POTASSIUM 3.6 mEQ/L (3.4-4.9); SODIUM 137 mEQ/L (135-145)
--- NOTE | 2017-04-18 15:29 | GI Progress Note ---
Assessment/Plan Problems: (1) Amphetamine abuse ICD Codes: F15.10 - Other stimulant abuse, uncomplicated SNOMED: 03812564 (2) Fatty liver ICD Codes: K76.0 - Fatty (change of) liver, not elsewhere classified SNOMED: 621229527 (3) Diverticulosis ICD Codes: K57.90 - Diverticulosis of intestine, part unspecified, without perforation or abscess without bleeding SNOMED: 157917761 (4) Intractable vomiting with nausea ICD Codes: R11.2 - Nausea with vomiting, unspecified SNOMED: 373008886, 037864623 Qualifiers: Qualified Codes: R11.2 - Nausea with vomiting, unspecified (5) Abdominal pain ICD Codes: R10.9 - Unspecified abdominal pain SNOMED: 24421694 Qualifiers: Qualified Codes: R10.84 - Generalized abdominal pain (6) Dehydration ICD Codes: E86.0 - Dehydration SNOMED: 73768103, 968253062 Status: stable, unchanged Status Narrative Discussed with Dr. Alexandre. Assessment/Plan urine tox positive for amphetamines CT AP >> unremarkable lipase WNL symptomatic treatment at this time >> no obvious pathology to explain her symptoms seen on CT and US adv diet IV hydration + electrolyte replacement zofran prn imodium prn H2B fu labs avoid drugs avoid opiates dc planning per primary team Subjective Subjective abdominal pain Objective Last 24 Hour Vital Signs Date Time Temp Pulse Resp B/P Pulse Ox O2 Delivery O2 Flow Rate FiO2 04/18/17 12:00 99.0 80 20 145/90 95 Room Air 04/18/17 10:06 93 148/97 04/18/17 10:06 93 148/97 04/18/17 08:00 98.4 93 20 148/97 98 Nasal Cannula 3.0 04/18/17 07:46 Nasal Cannula 2.0 04/18/17 07:45 97 Nasal Cannula 2.0 04/18/17 07:44 87 18 Nasal Cannula 2.0 04/18/17 04:00 98.8 93 18 132/79 98 Room Air 04/18/17 00:00 97.2 52 18 117/73 97 Room Air 04/17/17 22:09 116 18 95 Nasal Cannula 3.0 04/17/17 21:58 114 23 90 Nasal Cannula 3.0 32 04/17/17 20:41 60 148/82 04/17/17 20:04 64 18 Room Air 04/17/17 20:04 Room Air 04/17/17 20:04 Room Air 04/17/17 20:00 98.4 60 18 148/82 98 Room Air 04/17/17 16:17 98.4 59 19 148/89 100 Room Air Intake and Output 04/17/17 04/18/17 19:00 07:00 Intake Total 920 ml 350 ml Balance 920 ml 350 ml Intake Oral 420 ml IV Total 500 ml 350 ml # Voids 4 2 # Bowel Movements 1 1 Laboratory Tests Test 04/18/17 05:10 04/18/17 14:05 White Blood Count 14.1 K/UL (4.8-10.8) #H 11.3 K/UL (4.8-10.8) H Red Blood Count 4.69 M/UL (4.20-5.40) 4.16 M/UL (4.20-5.40) L Hemoglobin 15.7 G/DL (12.0-16.0) 14.2 G/DL (12.0-16.0) Hematocrit 49.0 % (37.0-47.0) H 43.3 % (37.0-47.0) Mean Corpuscular Volume 104 FL (80-99) H 104 FL (80-99) H Mean Corpuscular Hemoglobin 33.4 PG (27.0-31.0) H 34.2 PG (27.0-31.0) H Mean Corpuscular Hemoglobin Concent 32.0 G/DL (32.0-36.0) 32.9 G/DL (32.0-36.0) Red Cell Distribution Width 11.6 % (11.6-14.8) 11.7 % (11.6-14.8) Platelet Count 168 K/UL (150-450) 161 K/UL (150-450) Mean Platelet Volume 11.6 FL (6.5-10.1) H 12.4 FL (6.5-10.1) H Neutrophils (%) (Auto) 81.2 % (45.0-75.0) H 70.8 % (45.0-75.0) Lymphocytes (%) (Auto) 8.8 % (20.0-45.0) L 17.0 % (20.0-45.0) L Monocytes (%) (Auto) 6.9 % (1.0-10.0) 7.3 % (1.0-10.0) Eosinophils (%) (Auto) 2.3 % (0.0-3.0) 4.4 % (0.0-3.0) H Basophils (%) (Auto) 0.7 % (0.0-2.0) 0.4 % (0.0-2.0) Sodium Level 138 mEQ/L (135-145) 137 mEQ/L (135-145) Potassium Level 3.9 mEQ/L (3.4-4.9) 3.6 mEQ/L (3.4-4.9) Chloride Level 104 mEQ/L (98-107) 103 mEQ/L (98-107) Carbon Dioxide Level 21 mEQ/L (20-30) 22 mEQ/L (20-30) Anion Gap 13 (5-15) 12 (5-15) Blood Urea Nitrogen 4 mg/dL (7-23) L 3 mg/dL (7-23) L Creatinine 0.8 mg/dL (0.5-0.9) 0.7 mg/dL (0.5-0.9) Estimat Glomerular Filtration Rate > 60 mL/min (>60) > 60 mL/min (>60) Glucose Level 102 mg/dL (74-106) 101 mg/dL (74-106) Calcium Level 9.2 mg/dL (8.6-10.2) 9.1 mg/dL (8.6-10.2) Lipase 122 U/L (< 60) H Height (Feet): 5 Height (Inches): 3.00 Weight (Pounds): 160 General Appearance: no apparent distress, alert Cardiovascular: normal rate Respiratory/Chest: normal breath sounds Abdominal Exam: normal bowel sounds, non tender, soft Extremities: normal range of motion Lesli Arreaga N.P. Apr 18, 2017 15:29
[2017-04-18 16:00] VITALS: BP 140/86
[2017-04-18 17:15] LABS: APPEARANCE,URINE CLEAR; KETONES,URINE 2+ (NEGATIVE); LEUKOCYTE ESTERASE ,URINE 2+ (NEGATIVE); NITRITE,URINE NEGATIVE (NEGATIVE); PH,URINE 6 (4.5-8.0); PROTEIN,URINE NEGATIVE (NEGATIVE); UROBILINOGEN,URINE NORMAL MG/DL (0.0-1.0)
[2017-04-18 17:17] LABS: AMORPHOUS SEDIMENT,UR FEW /LPF; BACTERIA,URINE FEW /HPF; RBC,URINE 0-2 /HPF (0 - 2); SQUAMOUS EPITHELIAL CELL,UR FEW /LPF (NONE/OCC)
--- NOTE | 2017-04-18 22:48 | Pulmonology Progress Note ---
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 Subjective ROS Limited/Unobtainable: No Constitutional: Reports: no symptoms HEENT: Repors: no symptoms Respiratory: Reports: no symptoms Allergies: Coded Allergies: No Known Allergies (Unverified , 04/09/17) Objective Last 24 Hour Vital Signs Date Time Temp Pulse Resp B/P Pulse Ox O2 Delivery O2 Flow Rate FiO2 04/18/17 16:00 98.2 67 20 140/86 96 Room Air 04/18/17 12:00 99.0 80 20 145/90 95 Room Air 04/18/17 10:06 93 148/97 04/18/17 10:06 93 148/97 04/18/17 08:00 98.4 93 20 148/97 98 Nasal Cannula 3.0 04/18/17 07:46 Nasal Cannula 2.0 28 04/18/17 07:45 97 Nasal Cannula 2.0 28 04/18/17 07:44 87 18 Nasal Cannula 2.0 28 04/18/17 04:00 98.8 93 18 132/79 98 Room Air 04/18/17 00:00 97.2 52 18 117/73 97 Room Air Intake and Output 04/17/17 04/18/17 19:00 07:00 Intake Total 920 ml 350 ml Balance 920 ml 350 ml Intake Oral 420 ml IV Total 500 ml 350 ml # Voids 4 2 # Bowel Movements 1 1 General Appearance: no acute distress HEENT: atraumatic Respiratory/Chest: chest wall non-tender Cardiovascular: normal peripheral pulses Abdomen: normal bowel sounds Genitourinary: normal external genitalia Laboratory Tests 04/18/17 05:10: White Blood Count 14.1#H, Red Blood Count 4.69, Hemoglobin 15.7, Hematocrit 49.0H, Mean Corpuscular Volume 104H, Mean Corpuscular Hemoglobin 33.4H, Mean Corpuscular Hemoglobin Concent 32.0, Red Cell Distribution Width 11.6, Platelet Count 168, Mean Platelet Volume 11.6H, Neutrophils (%) (Auto) 81.2H, Lymphocytes (%) (Auto) 8.8L, Monocytes (%) (Auto) 6.9, Eosinophils (%) (Auto) 2.3, Basophils (%) (Auto) 0.7, Sodium Level 138, Potassium Level 3.9, Chloride Level 104, Carbon Dioxide Level 21, Anion Gap 13, Blood Urea Nitrogen 4L, Creatinine 0.8, Estimat Glomerular Filtration Rate > 60, Glucose Level 102, Calcium Level 9.2, Lipase 122H 04/18/17 14:05: White Blood Count 11.3H, Red Blood Count 4.16L, Hemoglobin 14.2, Hematocrit 43.3 , Mean Corpuscular Volume 104H, Mean Corpuscular Hemoglobin 34.2H, Mean Corpuscular Hemoglobin Concent 32.9, Red Cell Distribution Width 11.7, Platelet Count 161, Mean Platelet Volume 12.4H, Neutrophils (%) (Auto) 70.8, Lymphocytes (%) (Auto) 17.0L, Monocytes (%) (Auto) 7.3, Eosinophils (%) (Auto) 4.4H, Basophils (%) (Auto) 0.4, Sodium Level 137, Potassium Level 3.6, Chloride Level 103, Carbon Dioxide Level 22, Anion Gap 12, Blood Urea Nitrogen 3L, Creatinine 0.7, Estimat Glomerular Filtration Rate > 60, Glucose Level 101, Calcium Level 9.1 04/18/17 14:35: Urine Color Pale yellow, Urine Appearance Clear, Urine pH 6, Urine Specific [place] 1.005, Urine Protein Negative, Urine Glucose (UA) Negative, Urine Ketones 2+H, Urine Occult Blood Negative, Urine Nitrite Negative, Urine Bilirubin Negative, Urine Urobilinogen Normal, Urine Leukocyte Esterase 2+H, Urine RBC 0-2, Urine WBC 2-4, Urine Squamous Epithelial Cells Few, Urine Amorphous Sediment FewH, Urine Bacteria Few TESSY DIXON Apr 18, 2017 22:48
--- NOTE | 2017-04-20 12:46 | Discharge Summary ---
Discharge Summary Hospital Course Date of Admission Apr 13, 2017 at 23:13 Date of Discharge Apr 18, 2017 at 17:38 Admitting Diagnosis dehydration. Intractable vomiting HPI Nohemi Armstrong is a 36 year old female who was admitted on Apr 13, 2017 at 23:13 for Dehydration,Intractable Vomiting Hospital Course [id number] Discharge Discharge Disposition Patient was discharged to Home (01) Discharge Diagnoses: Ericka Owens NP Apr 20, 2017 12:46
--- NOTE | 2017-04-21 00:46 | Discharge Summary 2 SIG ---
DATE OF ADMISSION: 04/13/2017 DATE OF DISCHARGE: 04/18/2017 CONSULTANTS: 1. Paco Alexandre M.D. 2. John Delgadillo M.D. BRIEF HOSPITAL COURSE: The patient is a 36-year-old female with history of asthma, hypertension, and brain aneurysm, presented to ED complaining of abdominal pain with vomiting and diarrhea that started a week prior. She presented to ED a week prior and had negative workup and possible urinary tract infection. She was discharged home. However, a couple of days later she presented to [place] for same symptoms. She was given IV fluids and blood work was likewise unremarkable. She then came in to [place] because of severe abdominal pain with vomiting and diarrhea and unable to keep anything down. On evaluation, laboratories were unremarkable. Urine toxicology was positive for opiates and amphetamine. CT of the abdomen and pelvis showed fatty liver with mild diverticulosis. No diverticulitis. LFTs and lipase were all normal. Due to recurrence and persistence of symptoms, the patient was admitted to medical floor for further evaluation. She was seen by Dr. Alexandre. She was given IV hydration and Zofran and proton pump inhibitors. Initially, she was given clear liquid and diet was advanced. Pain management was consulted and was given morphine, tramadol, and Neurontin. Abdominal ultrasound done showed negative exam except for fatty infiltration of the liver. She was counseled against the avoiding drugs. The patient was eventually discharged home. FINAL DISPOSITION: The patient was discharged home. Advised to follow up with PCP. FINAL DIAGNOSES: 1. Abdominal pain due to cyclic vomiting syndrome or drug use. 2. Intractable nausea and vomiting secondary to above. 3. Hypertensive urgency. 4. Dehydration. 5. Diverticulosis. 6. Fatty liver. 7. Amphetamine abuse. 8. Asthma. 9. Current smoker. 10. Hypokalemia. Abigail Clements M.D. I have been assigned to dictate discharge summary on this account and I was not involved in the patient's management. Ericka Owens N.P. DR: ANNALISA JOB#: [id number] CC: SARAH
== END 2017-04-18 17:38 | disposition home or self-care (01) | DRG 251 ==
LOC: EDBD 22:00 → EMR 22:08 → 4E 23:13 → EDBEDREQ 23:54
DX: R10.9 Unspecified abdominal pain (principal); K76.0 Fatty (change of) liver, not elsewhere classified; G43.A0 Cyclical vomiting, in migraine, not intractable; E86.0 Dehydration; K57.90 Diverticulosis of intestine, part unspecified, without perforation or abscess without bleeding; F15.10 Other stimulant abuse, uncomplicated; I16.0 Hypertensive urgency; J45.909 Unspecified asthma, uncomplicated; F17.200 Nicotine dependence, unspecified, uncomplicated
CPT/HCPCS: 36415; 74177; 76700; 80048; 80053; 80061; 80300; 81001; 81003; 81025; 82150; 83690; 85025; 85730; 87324; 94640; 94664; 94760; J2405

== ENCOUNTER 2017-05-19 00:35 | Emergency (ER) | payer MEDICAID ==
[~2017-05-19] VITALS: Ht 160 cm; Wt 76.7 kg
[~2017-05-19 00:35] MED LIST changes: +PROAIR HFA8.5 GM INH; +QVAR7.3 GM INH
[2017-05-19 00:49] VITALS: BP 127/57
--- NOTE | 2017-05-19 00:54 | Emergency Room Report ---
History of Present Illness General Chief Complaint: Dyspnea/Respdistress Source: Patient Present Illness HPI Patient presents with complains of asthma exacerbation Reports that she was trying to fight the asthma at home for the past 4 days However at this time was having a hard time breathing was brought in by paramedics Patient does not recall why there might have been this exacerbation her last visit to the hospital was 3 months ago for her asthma Patient also reports that she has an aneurysm that she had surgery for in her brain And her head is hurting Denies any chest pain denies any back or flank pain Patient has increased cough but denies any pleurisy Allergies: Coded Allergies: No Known Allergies (Unverified , 04/09/17) Patient History Past Medical History: see triage record Pertinent Family History: none Last Menstrual Period: 05/17/17 Now: No Reviewed Nursing Documentation: PMH: Agreed, PSxH: Agreed Nursing Documentation-PMH Past Medical History: No History, Except For Hx Hypertension: Yes Hx Asthma: Yes Hx Cancer: No Hx Gastrointestinal Problems: No Hx Neurological Problems: No Review of Systems All Other Systems: negative except mentioned in HPI Physical Exam Vital Signs Date Time Temp Pulse Resp B/P (MAP) Pulse Ox O2 Delivery O2 Flow Rate FiO2 05/19/17 00:34 98.1 92 21 148/90 98 Simple Mask 10.0 Sp02 EP Interpretation: reviewed, normal General Appearance: well appearing, no apparent distress Head: normocephalic, atraumatic Eyes: left eye other - Mild ptosis of the left eye likely from previous surgery , bilateral eye PERRL, bilateral eye EOMI ENT: hearing grossly normal, normal pharynx, TMs + canals normal, uvula midline Neck: full range of motion, supple, no meningismus, no bony tend Respiratory: no respiratory distress, no retraction, no accessory muscle use, wheezing Cardiovascular #1: no edema, no gallop, no JVD, no murmur, tachycardia Gastrointestinal: normal bowel sounds, non tender, soft, no mass, no organomegaly, non-distended, no guarding, no hernia, no pulsatile mass, no rebound Genitourinary: no CVA tenderness Musculoskeletal: normal inspection Neurologic: oriented x3, responsive, maintenance repairer III-XII nml as tested, motor strength/ tone normal, sensory intact Psychiatric: mood/affect normal Skin: normal color, no rash, warm/dry, palpation normal Lymphatic: normal inspection, no adenopathy Medical Decision Making Diagnostic Impression: Primary Impression: Respiratory distress Additional Impression: Asthma ER Course Patient is a fairly complex patient with multiple differential to consideration including but not limited to cardiac cardiopulmonary and vascular emergencies Patient significantly improved after breathing treatment At this time given the patient's phlegm production any clinical history Patient also diagnosed with clinical pneumonia Placed on oral antibiotic Patient has some requesting labetalol Along with her albuterol inhaler and steroids I did let her know that beta jennie medication is usually contraindicated with severe asthma And that she should review her medications with her physician Otherwise at this time significantly improved and stable for close outpatient followup Rhythm Strip Diag. Results EP Interpretation: yes Rate: 88 Rhythm: NSR, no PVC's, no ectopy Last Vital Signs Date Time Temp Pulse Resp B/P (MAP) Pulse Ox O2 Delivery O2 Flow Rate FiO2 05/19/17 00:49 97.7 101 21 127/57 95 Simple Mask 10.0 Status: improved Disposition: HOME, SELF-CARE Condition: Improved Scripts Labetalol HCl (Labetalol HCl) 100 Mg Tablet 100 MG ORAL EVERY 12 HOURS, #30 TAB Prov: HORTENSIA JOHANSEN D.O. 05/19/17 Albuterol Sulfate* (ALBUTEROL SULFATE MDI*) 8.5 Gm Hfa.aer.ad 2 PUFF INH Q6H, #2 EA 0 Refills Prov: HORTENSIA JOHANSEN D.O. 05/19/17 Prednisone* (PREDNISONE*) 20 Mg Tablet 20 MG ORAL BID, #8 TAB Prov: HORTENSIA JOHANSEN D.O. 05/19/17 Levofloxacin* (LEVAQUIN*) 750 Mg Tablet 750 MG ORAL DAILY for 7 Days, TAB Prov: HORTENSIA JOHANSEN D.O. 05/19/17 Additional Instructions: Patient is provided with the discharge instructions notified to follow up with primary doctor in the next 2-3 days otherwise return to the er with any worsening symptoms. Please note that this report is being documented using [employer] technology. This can lead to erroneous entry secondary to incorrect interpretation by the dictating instrument. HORTENSIA JOHANSEN D.O. May 19, 2017 00:54
[2017-05-19] MEDS ORDERED: Solu-MEDROL 125mg Inj IVP ONE (01:00)
[2017-05-19] MEDS ORDERED: Norco 10mg/325mg tab ORAL ONE (01:00)
[2017-05-19] MEDS ORDERED: Albuterol ud Inhalation HHN ONE (01:00)
[2017-05-19] MEDS ORDERED: Ipratropium 0.02% Inh Soln 2.5ml UD HHN ONE (01:00)
[2017-05-19] MEDS ORDERED: HYDROmorphone 1mg/ml Carpuject IVP ONE (01:30)
[2017-05-19 02:01] VITALS: BP_SYST 148; BP_SYST 162; BP_DIAS 86; BP_DIAS 98
[2017-05-19] MEDS ORDERED: LEVAQUIN750 MG ORAL (02:28)
[2017-05-19] MEDS ORDERED: PREDNISONE20 MG ORAL (02:28)
[2017-05-19] MEDS ORDERED: ALBUTEROL SULF8.5 GM INH (02:42)
[2017-05-19] MEDS ORDERED: NORMODYNE100 MG ORAL (02:42)
[2017-05-19 02:52] VITALS: BP 148/86
== END 2017-05-19 01:00 | disposition home or self-care (01) ==
LOC: EDBD 00:35 → EMR 00:55
DX: J45.901 Unspecified asthma with (acute) exacerbation (principal); I10 Essential (primary) hypertension; J45.909 Unspecified asthma, uncomplicated
CPT/HCPCS: 94640; 96361; 96374; 96375; 99284; J1170; J2405; J2930

== ENCOUNTER 2017-07-17 18:31 | Emergency (ER) | payer MEDICAID ==
[~2017-07-17] VITALS: Ht 160 cm; Wt 83.9 kg
[~2017-07-17 18:31] MED LIST changes: +LEVAQUIN750 MG ORAL; +NORMODYNE100 MG ORAL; +PREDNISONE20 MG ORAL
[2017-07-17 18:35] VITALS: BP 127/78
[2017-07-17] MEDS ORDERED: NORMODYNE100 MG ORAL (18:54)
[2017-07-17] MEDS ORDERED: PREDNISONE20 MG ORAL (18:54)
[2017-07-17 19:15] VITALS: BP 130/74
[2017-07-17] MEDS ORDERED: PROAIR HFA8.5 GM INH (19:17)
[2017-07-17 19:20] VITALS: BP 130/74
--- NOTE | 2017-07-21 15:10 | Emergency Room Report ---
History of Present Illness General Chief Complaint: Dyspnea/Respdistress Source: Patient, EMS Present Illness HPI 37YOF BIBEMS with suspected asthma attack Ran out of MDI 2 days ago C/o cough, chest tighess, SOB Denies fever/chills Only uses MDI for asthma, not on long acting steroid Was given albuterol en route by EMS with improvement Allergies: Coded Allergies: ACETAMINOPHEN (Unverified Allergy, Unknown, 07/17/17) IBUPROFEN (Unverified Allergy, Unknown, 07/17/17) Patient History Past Medical History: asthma Past Surgical History: none Pertinent Family History: none Social History: Denies: smoking, alcohol use, drug use Last Menstrual Period: 1 week ago Now: No Immunizations: UTD Reviewed Nursing Documentation: PMH: Agreed, PSxH: Agreed Nursing Documentation-PMH Hx Hypertension: Yes Hx Asthma: Yes Hx Cancer: No Hx Gastrointestinal Problems: No Hx Neurological Problems: No Review of Systems All Other Systems: negative except mentioned in HPI Physical Exam Vital Signs Date Time Temp Pulse Resp B/P (MAP) Pulse Ox O2 Delivery O2 Flow Rate FiO2 07/17/17 18:26 98.1 95 22 145/95 97 Room Air Sp02 EP Interpretation: reviewed, normal General Appearance: normal inspection, well appearing, no apparent distress, alert, GCS 15, non-toxic Head: normocephalic, atraumatic Eyes: bilateral eye PERRL, bilateral eye EOMI ENT: normal ENT inspection, hearing grossly normal, normal voice Neck: normal inspection, full range of motion, supple, no bony tend Respiratory: normal inspection, lungs clear, normal breath sounds, no respiratory distress, no retraction, no accessory muscle use, no wheezing, speaking full sentences Cardiovascular #1: regular rate, rhythm, no edema Gastrointestinal: normal inspection, normal bowel sounds, non tender, soft, no guarding, no hernia Genitourinary: no CVA tenderness Musculoskeletal: normal inspection, back normal, normal range of motion, James' s Sign negative Neurologic: normal inspection, alert, oriented x3, responsive, wheel setter III-XII nml as tested, speech normal Psychiatric: normal inspection, judgement/insight normal, mood/affect normal Skin: normal inspection, normal color, no rash Lymphatic: normal inspection Medical Decision Making Diagnostic Impression: Primary Impression: Dyspnea Qualified Codes: R06.00 - Dyspnea, unspecified Additional Impression: Asthma Qualified Codes: J45.21 - Mild intermittent asthma with (acute) exacerbation ER Course Mild asthma attack VSS. Afebrile. Not hypoxic Lungs CTAB in ED after EMS given albuterol Predisone given here Did not need any additional albuterol here Meds refilled Rx Prednisone DC home Close PMD followup Last Vital Signs Date Time Temp Pulse Resp B/P (MAP) Pulse Ox O2 Delivery O2 Flow Rate FiO2 07/17/17 19:20 98.4 92 19 130/74 99 Room Air Status: improved Disposition: HOME, SELF-CARE Condition: Improved Scripts Albuterol Sulfate* (PROAIR HFA*) 8.5 Gm Hfa.aer.ad 1 PUFF INH Q6H, #8.5 GM 0 Refills Prov: VISHAL CONTRERAS M.D. 07/17/17 Labetalol HCl (Labetalol HCl) 100 Mg Tablet 100 MG ORAL EVERY 12 HOURS for 30 Days, #60 TAB Prov: VISHAL CONTRERAS M.D. 07/17/17 Prednisone* (PREDNISONE*) 20 Mg Tablet 40 MG ORAL DAILY for 3 Days, #3 TAB Prov: VISHAL CONTRERAS M.D. 07/17/17 Referrals: [facility] (PCP) Patient Instructions: Asthma, Adult, Ihhm-pi-Ohtp Additional Instructions: - Take prednisone 40mg daily for next 3 days - USe pro-air as needed - Take labetolol as prescribed VISHAL CONTRERAS M.D. Jul 21, 2017 15:10
== END 2017-07-17 19:20 | disposition home or self-care (01) ==
LOC: EDBD 18:31 → EMR 19:20
DX: J45.21 Mild intermittent asthma with (acute) exacerbation (principal); R06.00 Dyspnea, unspecified; Z88.6 Allergy status to analgesic agent; I10 Essential (primary) hypertension
CPT/HCPCS: 99283

== ENCOUNTER 2018-01-26 23:16 | Emergency (ER) | payer MEDICAID ==
[~2018-01-26] VITALS: Ht 160 cm; Wt 92.1 kg
[2018-01-26] MEDS: Albuterol/Ipratropium 3ml neb HHN SCH (23:54)
[2018-01-27] MEDS: Albuterol/Ipratropium 3ml neb HHN SCH ×3 (00:07→00:15)
[2018-01-27] MEDS ORDERED: PREDNISONE20 MG ORAL (00:16)
[2018-01-27] MEDS ORDERED: PROAIR HFA8.5 GM INH (00:18)
[2018-01-27 00:20] VITALS: BP 119/78
[2018-01-27 00:22] VITALS: BP 119/78
--- NOTE | 2018-01-27 06:29 | Emergency Room Report ---
History of Present Illness General Chief Complaint: Upper Respiratory Illness Source: Patient Present Illness HPI Patient is a 37-year-old female who presented after increased difficulty breathing. The patient gradual onset of symptoms of the past few days. Patient had reportedly been using more of her asthma medications without any improvement. Patient had prior history of asthma. She denies any fever. She had nonproductive cough. Patient was brought in by EMS. Allergies: Coded Allergies: ACETAMINOPHEN (Unverified Allergy, Unknown, 01/26/18) IBUPROFEN (Unverified Allergy, Unknown, 07/17/17) Patient History Past Medical History: see triage record Reviewed Nursing Documentation: PMH: Agreed; PSxH: Agreed Nursing Documentation-PMH Past Medical History: No History, Except For Hx Hypertension: Yes Hx Asthma: Yes Hx Cancer: No Hx Gastrointestinal Problems: No Hx Neurological Problems: Yes - Anurysm 2011 Review of Systems All Other Systems: negative except mentioned in HPI Physical Exam Vital Signs Date Time Temp Pulse Resp B/P (MAP) Pulse Ox O2 Delivery O2 Flow Rate FiO2 01/26/18 23:20 98.4 98 18 140/78 100 Room Air 98.4 01/26/18 23:52 21 01/27/18 00:20 10.0 General Appearance: well appearing, no apparent distress, alert, GCS 15 Head: normocephalic, atraumatic ENT: hearing grossly normal, normal voice Neck: full range of motion, supple Respiratory: no respiratory distress, speaking full sentences Cardiovascular #1: normal inspection, regular rate, rhythm, no edema, no gallop Gastrointestinal: normal inspection, normal bowel sounds, non tender, soft Musculoskeletal: normal inspection, no calf tenderness Neurologic: normal gait Psychiatric: mood/affect normal Skin: no rash Medical Decision Making Diagnostic Impression: Primary Impression: Asthma exacerbation ER Course Patient presented for shortness of breath. Differential included but was not limited to anemia, pneumonia, pneumothorax, myocardial infarction, pericardial effusion, congestive heart failure, acidosis. Patient is given nebulized albuterol with improvement. Patient was given steroids. Repeat lung exam showed improved breath sounds.The patient is advised to follow up with primary care doctor in 1-2 days. Patient is advised to return if any worsening condition or if any changes in status that are concerning. This report is dictated with [employer] border measurer and cutter software which may occasionally lead to discrepancies related to use of this software. Last Vital Signs Date Time Temp Pulse Resp B/P (MAP) Pulse Ox O2 Delivery O2 Flow Rate FiO2 01/27/18 00:23 83 24 100 Simple Mask 21 01/27/18 00:22 119/78 01/27/18 00:20 10.0 01/26/18 23:20 98.4 98.4 Status: improved Disposition: HOME, SELF-CARE Condition: Stable Scripts Albuterol Sulfate* (PROAIR HFA*) 8.5 Gm Hfa.aer.ad 2 PUFFS INH Q6H, #8.5 GM 0 Refills Prov: Robin Galeano 01/27/18 Prednisone* (PREDNISONE*) 20 Mg Tablet 40 MG ORAL DAILY, #10 TAB Prov: Robin Galeano 01/27/18 Patient Instructions: Asthma, Adult Robin Galeano January 27, 2018 06:29
== END 2018-01-27 00:23 | disposition home or self-care (01) ==
LOC: EDBD 23:16 → EDUNIT# 23:16 → EMR 23:36
DX: J45.901 Unspecified asthma with (acute) exacerbation (principal); I10 Essential (primary) hypertension; Z88.6 Allergy status to analgesic agent
CPT/HCPCS: 94640; 94664; 99284; J7512; J7620

== ENCOUNTER 2018-02-19 23:28 | Emergency (ER) | payer MEDICAID ==
[~2018-02-19] VITALS: Ht 160 cm; Wt 88.0 kg
[2018-02-19 23:40] VITALS: BP_SYST 112; BP_SYST 144; BP_DIAS 112; BP_DIAS 66
--- NOTE | 2018-02-19 23:44 | Emergency Room Report ---
History of Present Illness General Chief Complaint: Dyspnea/Respdistress Source: Patient Present Illness HPI Patient present with complaints of shortness of breath Patient ran out of her albuterol inhaler Was waiting for her sister to bring her inhaler but she did not make it Therefore she called paramedics Patient also reports developing a headache while in route Denies any vomiting or diarrhea Denies any focal weakness patient has history of asthma Denies any fevers or chills Allergies: Coded Allergies: No Known Allergies (Unverified , 02/19/18) Patient History Past Medical History: see triage record Pertinent Family History: none Last Menstrual Period: on period Reviewed Nursing Documentation: PMH: Agreed; PSxH: Agreed Nursing Documentation-PMH Hx Hypertension: Yes Hx Asthma: Yes Hx Cancer: No Hx Gastrointestinal Problems: No Hx Neurological Problems: Yes - Anurysm 2011 Review of Systems All Other Systems: negative except mentioned in HPI Physical Exam Vital Signs Date Time Temp Pulse Resp B/P (MAP) Pulse Ox O2 Delivery O2 Flow Rate FiO2 02/19/18 23:30 98.4 89 18 167/89 94 Room Air 98.4 Sp02 EP Interpretation: reviewed, normal General Appearance: well appearing, no apparent distress Head: normocephalic, atraumatic Eyes: bilateral eye PERRL, bilateral eye EOMI ENT: hearing grossly normal, normal pharynx, TMs + canals normal, uvula midline Neck: full range of motion, supple, no meningismus, no bony tend Respiratory: no respiratory distress, no retraction, no accessory muscle use, wheezing Cardiovascular #1: normal peripheral pulses, regular rate, rhythm, no edema, no gallop, no JVD, no murmur Gastrointestinal: normal bowel sounds, non tender, soft, no mass, no organomegaly, non-distended, no guarding, no hernia, no pulsatile mass, no rebound Genitourinary: no CVA tenderness Musculoskeletal: normal inspection Neurologic: oriented x3, responsive, resident caregiver III-XII nml as tested, motor strength/ tone normal, sensory intact Psychiatric: mood/affect normal Skin: normal color, no rash, warm/dry, palpation normal Lymphatic: normal inspection, no adenopathy Medical Decision Making Diagnostic Impression: Primary Impression: Asthma exacerbation ER Course Patient presents with clinical exam and findings consistent with asthma exacerbation After breathing treatment and oral steroids patient reevaluated Reports that she feels significantly better and is stable for close outpatient follow-up Last Vital Signs Date Time Temp Pulse Resp B/P (MAP) Pulse Ox O2 Delivery O2 Flow Rate FiO2 02/19/18 23:30 98.4 89 18 167/89 94 Room Air 98.4 Status: improved Disposition: HOME, SELF-CARE Condition: Improved Scripts Prednisone* (PREDNISONE*) 20 Mg Tablet 20 MG ORAL BID, #10 TAB Prov: Claudy Vásquez DO 02/20/18 Albuterol Sulfate* (ALBUTEROL SULFATE MDI*) 8.5 Gm Hfa.aer.ad 2 PUFF INH Q6H, #1 EA 0 Refills Prov: Claudy Vásquez DO 02/20/18 Referrals: [facility] (PCP) Additional Instructions: Patient is provided with the discharge instructions notified to follow up with primary doctor in the next 2-3 days otherwise return to the er with any worsening symptoms. Please note that this report is being documented using [employer] technology. This can lead to erroneous entry secondary to incorrect interpretation by the dictating instrument. Claudy Vásquez DO February 19, 2018 23:44
[2018-02-19] MEDS ORDERED: Ipratropium 0.02% Inh Soln 2.5ml UD HHN ONE (23:45)
[2018-02-19] MEDS ORDERED: Tylenol #3 tab (300mg/30mg) ORAL ONE (23:45)
[2018-02-19] MEDS ORDERED: Albuterol ud Inhalation HHN ONE (23:45)
[2018-02-20] MEDS ORDERED: PREDNISONE20 MG ORAL (01:11)
[2018-02-20] MEDS ORDERED: ALBUTEROL SULF8.5 GM INH (01:11)
[2018-02-20 01:13] VITALS: BP 144/112
== END 2018-02-20 01:13 | disposition home or self-care (01) ==
LOC: EMR 23:41
DX: J45.901 Unspecified asthma with (acute) exacerbation (principal)
CPT/HCPCS: 94640; 99284; J7512

== ENCOUNTER 2019-03-24 22:04 | Emergency (ER) | payer MEDICAID ==
[~2019-03-24] VITALS: Ht 162.6 cm; Wt 91.6 kg
[2019-03-24 22:10] VITALS: BP 156/98
--- NOTE | 2019-03-24 22:10 | NUR ---
ED Nurse Note: Pt arrived ED from home, c/o Asthma exaceration for 3 days and got wrose today and feeling headache. Pt is A/O X4. Vital signs stable at this time, waiting for orders.
[2019-03-24] MEDS ORDERED: HYDROcodone/Acetamin 5/325 tab ORAL ONE (22:15)
[2019-03-24] MEDS ORDERED: Albuterol/Ipratropium 3ml neb HHN ONE (22:15)
[2019-03-24] MEDS ORDERED: PREDNISONE20 MG ORAL (22:21)
--- NOTE | 2019-03-24 22:21 | Emergency Room Report ---
History of Present Illness General Chief Complaint: To Be Triaged Source: Patient Present Illness HPI Is a 38-year-old female with a history of asthma. She presents with chief complaint of shortness of breath and asthma exacerbation. Ongoing for the last 3 days. She thinks secondary to the weather change. Saw her doctor yesterday and prescribed Qvar. She is taking albuterol at home. Not helping. Got worse today when she had to call 911. EMS gave her 5 mg of albuterol. She felt better now. Now with a headache. Does have cough and congestion. Worse with exertion. Letter with her inhaler. Denies any other complaint. Last steroid use was about 6 months ago. Allergies: Coded Allergies: No Known Allergies (Unverified , 03/24/19) Patient History Past Medical History: see triage record, old chart reviewed, asthma Past Surgical History: none Pertinent Family History: none Social History: Denies: smoking - Quit 2 months ago Now: No Immunizations: other Reviewed Nursing Documentation: PMH: Agreed; PSxH: Agreed Nursing Documentation-PMH Hx Hypertension: Yes Hx Asthma: Yes Hx Cancer: No Hx Gastrointestinal Problems: No Hx Neurological Problems: Yes - Anurysm 2011 Review of Systems Eye: Denies: eye pain, blurred vision ENT: Denies: ear pain, nose congestion, throat swelling Respiratory: Reports: cough, shortness of breath, wheezing Cardiovascular: Denies: chest pain, palpitations Gastrointestinal: Denies: abdominal pain, diarrhea, nausea, vomiting Musculoskeletal: Denies: back pain, joint pain Skin: Denies: rash Neurological: Denies: headache, numbness Endocrine: Denies: increased thirst, increased urine Hematologic/Lymphatic: Denies: easy bruising All Other Systems: negative except mentioned in HPI Physical Exam Vital Signs Date Time Temp Pulse Resp B/P (MAP) Pulse Ox O2 Delivery O2 Flow Rate FiO2 03/24/19 22:01 99.0 89 18 178/100 (126) 100 Room Air Vitals with high blood pressure Sp02 EP Interpretation: reviewed, normal General Appearance: well appearing, no apparent distress, alert Head: normocephalic, atraumatic Eyes: bilateral eye PERRL, bilateral eye EOMI ENT: hearing grossly normal, normal pharynx Neck: full range of motion, supple, no meningismus Respiratory: chest non-tender, wheezing - Slight Cardiovascular #1: regular rate, rhythm, no murmur Gastrointestinal: normal bowel sounds, non tender, no mass, no organomegaly, no bruit, non-distended Musculoskeletal: back normal, gait/station normal, normal range of motion Psychiatric: mood/affect normal Medical Decision Making Diagnostic Impression: Primary Impression: Asthma exacerbation Qualified Codes: J45.21 - Mild intermittent asthma with (acute) exacerbation ER Course Patient with an asthma exacerbation. No evidence of sepsis, meningitis, pneumonia to name a few. Better after breathing treatment. Will discharge home. She says she no longer smokes but I see a packet cigarette in her purse. She said this is her uncle. 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 Last Vital Signs Date Time Temp Pulse Resp B/P (MAP) Pulse Ox O2 Delivery O2 Flow Rate FiO2 03/24/19 22:01 99.0 89 18 178/100 (126) 100 Room Air Status: improved Disposition: HOME, SELF-CARE Condition: Stable Scripts Prednisone* (PREDNISONE*) 20 Mg Tablet 40 MG ORAL DAILY, #8 TAB Prov: Jaspreet Arreaga MD 03/24/19 Additional Instructions: Follow-up with your doctor in 7 days. Return if worse. Jaspreet Arreaga MD Mar 24, 2019 22:21
--- NOTE | 2019-03-24 22:26 | NUR ---
ED Nurse Note: Meds given as ordered.
--- NOTE | 2019-03-24 22:31 | NUR ---
ED Nurse Note: Breathing treatment given by RT at bedside .
[2019-03-24 22:58] VITALS: BP 156/98
--- NOTE | 2019-03-24 22:58 | NUR ---
ER DISCHARGE NOTE: Patient is cleared to be discharged per Dr. Arreaga. Pt is aox4 on room air with stable vital signs. Pt was given dc and prescription instructions and was able to verbalize understanding. Pt's ID band and iv site removed without complications. Pt is able to ambulate with steady gait and took all belongings.
== END 2019-03-24 22:58 | disposition home or self-care (01) ==
LOC: EDBD 22:04 → EMR 22:30
DX: J45.21 Mild intermittent asthma with (acute) exacerbation (principal); I10 Essential (primary) hypertension
CPT/HCPCS: 94640; 94664; 99284; J7512; J7620

== ENCOUNTER 2019-06-02 00:41 | Emergency (ER) | payer MEDICAID ==
[~2019-06-02] VITALS: Ht 160 cm; Wt 86.2 kg
[2019-06-02 01:00] VITALS: BP 140/93
[2019-06-02] MEDS ORDERED: Solu-MEDROL 125mg Inj IVP ONE (01:00)
[2019-06-02] MEDS ORDERED: Albuterol ud Inhalation HHN SCH (01:00)
[2019-06-02] MEDS ORDERED: Ipratropium 0.02% Inh Soln 2.5ml UD HHN ONE (01:00)
--- NOTE | 2019-06-02 01:00 | NUR ---
ED Nurse Note: pt brought in by [facility] from home c/c sob, pt reports she's been having for past week but has been using inhaler but no improvement. upon arrival noted pt audible wheezing and also to auscultation. pt received breathing tx on field. ermd aware of pt's condition. RT contacted. will cont monitor.
--- NOTE | 2019-06-02 01:20 | NUR ---
ED Nurse Note: pt reports nausea and headache, ermd notified. no vomiting.
[2019-06-02] MEDS ORDERED: DiphenhydrAMINE 50mg/ml Inj IVP ONE (01:30)
[2019-06-02] MEDS ORDERED: Metoclopramide 10mg/2ml Inj IVP ONE (01:30)
[2019-06-02] MEDS ORDERED: Morphine Sulfate 4mg/ml Inj (IV USE ONLY) IVP ONE (01:30)
[2019-06-02 02:08] LABS: APPEARANCE,URINE CLEAR; BILIRUBIN, URINE NEGATIVE (NEGATIVE); COLOR,URINE PALE YELLOW; GLUCOSE, URINE (UA) NEGATIVE (NEGATIVE); KETONES,URINE NEGATIVE (NEGATIVE); LEUKOCYTE ESTERASE ,URINE NEGATIVE (NEGATIVE); NITRITE,URINE NEGATIVE (NEGATIVE); PH,URINE 6 (4.5-8.0); PROTEIN,URINE NEGATIVE (NEGATIVE); UROBILINOGEN,URINE NORMAL MG/DL (0.0-1.0)
[2019-06-02 02:10] LABS: BASOPHILS % (AUTO) 1.2 % (0.0-2.0); EOSINOPHILS % (AUTO) 5.6 % (0.0-3.0); HEMATOCRIT 45.5 % (37.0-47.0); HEMOGLOBIN 15.2 G/DL (12.0-16.0); LYMPHOCYTES % (AUTO) 26.1 % (20.0-45.0); MEAN CORPUSCULAR VOLUME 101 FL (80-99); MONOCYTES % (AUTO) 7.4 % (1.0-10.0); NEUTROPHILS % (AUTO) 59.7 % (45.0-75.0); PLATELET COUNT 200 K/UL (150-450); RED CELL DISTRIBUTION WIDTH 11.6 % (11.6-14.8); WHITE BLOOD COUNT 12.2 K/UL (4.8-10.8)
[2019-06-02 02:13] LABS: ANION GAP 4 mmol/L (5-15); BLOOD UREA NITROGEN 10 mg/dL (7-18); CALCIUM 8.6 MG/DL (8.5-10.1); CARBON DIOXIDE 20 MMOL/L (21-32); CHLORIDE 105 MMOL/L (98-107); CREATININE 0.8 MG/DL (0.55-1.30); SODIUM 128 MMOL/L (136-145)
--- NOTE | 2019-06-02 02:18 | Diagnostic Imaging Report ---
EXAM: XR Chest, 1 View CLINICAL HISTORY: DYSPNEA TECHNIQUE: Frontal view of the chest. COMPARISON: No relevant prior studies available. FINDINGS: Lungs: Unremarkable. No consolidation. Pleural space: Unremarkable. No pneumothorax. Heart: Unremarkable. No cardiomegaly. Mediastinum: Unremarkable. Bones/joints: Unremarkable. IMPRESSION: Normal chest x-ray.
[2019-06-02 02:23] LABS: ALANINE AMINOTRANSFERASE 25 U/L (12-78); ALBUMIN 3.6 G/DL (3.4-5.0); ALBUMIN/GLOBULIN RATIO 1.1 (1.0-2.7); ALKALINE PHOSPHATASE 51 U/L (46-116); ASPARTATE AMINO TRANSFERASE 19 U/L (15-37); CREATINE KINASE 135 U/L (26-308)
[2019-06-02 02:28] LABS: INR 0.9 (0.9-1.1)
--- NOTE | 2019-06-02 02:32 | Emergency Room Report ---
History of Present Illness General Chief Complaint: Dyspnea/Respdistress Source: Patient Present Illness HPI Presents with 1 week of worsening asthma. She does have a nebulizer at home but only uses it twice a day. She has been using her rescue inhaler between those times. She called paramedics today because the dyspnea became overwhelming. She denies any fevers or chills or productive cough. She has never been intubated in the past. She's had treatment with steroids in the past also but not using them at this time. She denies any significant chest pain, calf pain or edema. She complains of a severe headache. She feels it might be due to the coughing. Pounding and diffuse and 15/10. Is not taking any medication for this. Review of records reveals that she had reported that she had a brain aneurysm which was surgically corrected. This pain does not feel like the pain associated with the aneurysm. No blood thinners, trauma, unilateral weakness, incontinence, IV drug use No sore throat, palpitations, nausea, vomiting, diarrhea, dysuria, abdominal pain, joint pain, rashes, depression, anxiety, visual changes. She is worried about her 5-year-old son at home who also has a tendency towards asthma and is slightly ill. Allergies: Coded Allergies: No Known Allergies (Unverified , 03/24/19) Patient History Past Medical History: see triage record Past Surgical History: other - Brain aneurysm in 2011 Social History: Denies: smoking, drug use - Prior use of amphetamines 2017 Social History Narrative Last Menstrual Period: n/a Reviewed Nursing Documentation: PMH: Agreed; PSxH: Agreed Nursing Documentation-PMH Past Medical History: No History, Except For Hx Hypertension: Yes Hx Asthma: Yes Hx Cancer: No Hx Gastrointestinal Problems: No Hx Neurological Problems: Yes - Anurysm 2011 Review of Systems All Other Systems: negative except mentioned in HPI Physical Exam Vital Signs Date Time Temp Pulse Resp B/P (MAP) Pulse Ox O2 Delivery O2 Flow Rate FiO2 06/02/19 00:37 98.2 90 18 149/92 (111) 98 Room Air 06/02/19 01:15 21 Sp02 EP Interpretation: reviewed, normal General Appearance: well appearing, no apparent distress, GCS 15 Head: normocephalic Eyes: bilateral eye normal inspection, bilateral eye PERRL, bilateral eye EOMI ENT: normal pharynx, moist mucus membranes Neck: supple Respiratory: no respiratory distress - However it is out of breath easily with walking, no retraction, no accessory muscle use, wheezing, expiration, inspiration Cardiovascular #1: regular rate, rhythm, no edema Cardiovascular #2: 2+ radial (R) Gastrointestinal: normal inspection, normal bowel sounds, non tender, no mass, non-distended Musculoskeletal: back normal, gait/station normal, normal range of motion, no calf tenderness Neurologic: alert, oriented x3, grossly normal Psychiatric: mood/affect normal Skin: no rash Medical Decision Making Diagnostic Impression: Primary Impression: Asthma exacerbation Qualified Codes: J45.41 - Moderate persistent asthma with (acute) exacerbation Additional Impressions: Hyponatremia Hypokalemia Leukocytosis Qualified Codes: D72.828 - Other elevated white blood cell count Eosinophilia Headache Qualified Codes: R51 - Headache ER Course Patient presents with 1 week of worsening asthma. Differential includes pneumonia, bronchitis, asthma exacerbation, pulmonary embolus amongst others. Based on her physical exam pulmonary embolus is less likely. Evaluation with EKG, chest x-ray and labs. The patient will be treated with IV Solu-Medrol, breathing treatments. She will also be treated with analgesics because of the headache. EKG without injury. Chest x-ray no infiltrates. Labs with leukocytosis and eosinophilia. Sodium and potassium are low. Patient given IV hydration. Patient clear. Ambulates to bathroom without difficulty. Urinary sodium added. Less than 20. Oral potassium given. CMP repeated but patient insists on going home. Discussed risk of seizures with patient. She understands. She feels improved. Patient advised to follow-up with her own physician. Repeat CMP with improved sodium. The specimen was hemolyzed and potassium was elevated. Laboratory Tests Test 06/02/19 01:15 06/02/19 01:49 06/02/19 03:55 White Blood Count 12.2 K/UL (4.8-10.8) H Red Blood Count 4.50 M/UL (4.20-5.40) Hemoglobin 15.2 G/DL (12.0-16.0) Hematocrit 45.5 % (37.0-47.0) Mean Corpuscular Volume 101 FL (80-99) H Mean Corpuscular Hemoglobin 33.6 PG (27.0-31.0) H Mean Corpuscular Hemoglobin Concent 33.3 G/DL (32.0-36.0) Red Cell Distribution Width 11.6 % (11.6-14.8) Platelet Count 200 K/UL (150-450) Mean Platelet Volume 9.1 FL (6.5-10.1) Neutrophils (%) (Auto) 59.7 % (45.0-75.0) Lymphocytes (%) (Auto) 26.1 % (20.0-45.0) Monocytes (%) (Auto) 7.4 % (1.0-10.0) Eosinophils (%) (Auto) 5.6 % (0.0-3.0) H Basophils (%) (Auto) 1.2 % (0.0-2.0) Prothrombin Time 9.4 SEC (9.30-11.50) Prothrombin Time INR 0.9 (0.9-1.1) PTT 29 SEC (23-33) Sodium Level 128 MMOL/L (136-145) L 138 MMOL/L (136-145) # Potassium Level 3.0 MMOL/L (3.5-5.1) L 6.9 MMOL/L (3.5-5.1) #*H Chloride Level 105 MMOL/L (98-107) 113 MMOL/L (98-107) H Carbon Dioxide Level 20 MMOL/L (21-32) L 17 MMOL/L (21-32) L Anion Gap 4 mmol/L (5-15) L 10 mmol/L (5-15) Blood Urea Nitrogen 10 mg/dL (7-18) 8 mg/dL (7-18) Creatinine 0.8 MG/DL (0.55-1.30) 0.6 MG/DL (0.55-1.30) Estimate Glomerular Filtration Rate > 60 mL/min (>60) > 60 mL/min (>60) Glucose Level 118 MG/DL (74-106) H 162 MG/DL (74-106) H Calcium Level 8.6 MG/DL (8.5-10.1) 7.8 MG/DL (8.5-10.1) L Magnesium Level 2.2 MG/DL (1.8-2.4) Total Bilirubin 0.3 MG/DL (0.2-1.0) 0.4 MG/DL (0.2-1.0) Aspartate Amino Transferase (AST) 19 U/L (15-37) 62 U/L (15-37) H Alanine Aminotransferase (ALT) 25 U/L (12-78) 24 U/L (12-78) Alkaline Phosphatase 51 U/L (46-116) 44 U/L (46-116) L Total Creatine Kinase 135 U/L (26-308) Troponin I 0.014 ng/mL (0.000-0.056) Pro-B-Type Natriuretic Peptide 149 pg/mL (0-125) H Total Protein 7.0 G/DL (6.4-8.2) 7.1 G/DL (6.4-8.2) Albumin 3.6 G/DL (3.4-5.0) 3.2 G/DL (3.4-5.0) L Globulin 3.4 g/dL 3.9 g/dL Albumin/Globulin Ratio 1.1 (1.0-2.7) 0.8 (1.0-2.7) L Urine Color Pale yellow Urine Appearance Clear Urine pH 6 (4.5-8.0) Urine Specific [place] 1.010 (1.005-1.035) Urine Protein Negative (NEGATIVE) Urine Glucose (UA) Negative (NEGATIVE) Urine Ketones Negative (NEGATIVE) Urine Blood Negative (NEGATIVE) Urine Nitrite Negative (NEGATIVE) Urine Bilirubin Negative (NEGATIVE) Urine Urobilinogen Normal MG/DL (0.0-1.0) Urine Leukocyte Esterase Negative (NEGATIVE) Urine Random Sodium < 20 mmol/L (20-110) L EKG Diagnostic Results Rate: normal Rhythm: NSR ST Segments: no acute changes Rhythm Strip Diag. Results EP Interpretation: yes Rhythm: NSR, no PVC's, no ectopy Chest X-Ray Diagnostic Results Chest X-Ray Diagnostic Results : Chest X-Ray Ordered: Yes # of Views/Limited/Complete: 1 View Indication: Shortness of Breath EP Interpretation: Yes Interpretation: no consolidation, no effusion, no pneumothorax Impression: No acute disease Electronically Signed by: Electronically signed by Mikie López MD Last Vital Signs Date Time Temp Pulse Resp B/P (MAP) Pulse Ox O2 Delivery O2 Flow Rate FiO2 06/02/19 04:04 98.2 100 18 140/93 98 Room Air 06/02/19 01:15 21 Status: improved Reevaluation Impression Patient was contacted at home regarding laboratory evaluation. Advised the need to follow-up with her physician and get labs repeated. S the specimen was hemolyzed the potassium was felt to be elevated due to this as there was no other reason for hyperkalemia. Disposition: HOME, SELF-CARE Condition: Improved Scripts Acetaminophen (Tylenol) 325 Mg Tablet 650 MG ORAL Q6H PRN for Prn Pain/Headache/Temp > 101, #30 TAB 0 Refills Prov: Mikie López MD 06/02/19 Prednisone* (PREDNISONE*) 20 Mg Tablet 40 MG ORAL DAILY, #10 TAB Prov: Mikie López MD 06/02/19 Referrals: NOT CHOSEN IPA/,REFERRING (PCP) Mikie López MD Jun 02, 2019 02:32
[2019-06-02 02:40] LABS: BILIRUBIN,TOTAL 0.3 MG/DL (0.2-1.0)
--- NOTE | 2019-06-02 02:51 | NUR ---
ED Nurse Note: pt reports breathing is better and pain is better, СВЕТЛАНАD at the bedside regarding admission, pt reports she has to go home because she has to take care of her son ERMD aware.
[2019-06-02] MEDS ORDERED: TYLENOL325 MG ORAL (03:57)
[2019-06-02] MEDS ORDERED: PREDNISONE20 MG ORAL (03:57)
--- NOTE | 2019-06-02 04:03 | NUR ---
ED Nurse Note: PT CLEARED TO BE D/C PER ERMD, DISCHARGE AND AFTERCARE INSTRUCTION PROVIDED W/ PRESCRIPTION, EDUCATION DONE VIA DISCUSSION AND HANDOUT, PT ADVISED TO FOLLOW UP WITH PCP OR RETURN TO ED IF CHANGES IN CONDITION, VSS, AMBULATORY W/ STEADY GAIT, IV D/C AND ID BAND REMOVED, PT LEFT W/ ALL BELONGINGS, PT REPORTS SHE WILL TAKE LYFT HOME.
[2019-06-02 04:04] VITALS: BP 140/93
[2019-06-02 04:21] LABS: ALANINE AMINOTRANSFERASE 24 U/L (12-78); ALBUMIN 3.2 G/DL (3.4-5.0); ALBUMIN/GLOBULIN RATIO 0.8 (1.0-2.7); ALKALINE PHOSPHATASE 44 U/L (46-116); ANION GAP 10 mmol/L (5-15); ASPARTATE AMINO TRANSFERASE 62 U/L (15-37); BILIRUBIN,TOTAL 0.4 MG/DL (0.2-1.0); BLOOD UREA NITROGEN 8 mg/dL (7-18); CALCIUM 7.8 MG/DL (8.5-10.1); CARBON DIOXIDE 17 MMOL/L (21-32); CHLORIDE 113 MMOL/L (98-107); CREATININE 0.6 MG/DL (0.55-1.30); SODIUM 138 MMOL/L (136-145)
[2019-06-02 04:24] LABS: POTASSIUM 6.9 MMOL/L (3.5-5.1)
--- NOTE | 2019-06-02 15:15 | Cardiology Report ---
APPROVED REPORT EKG Measurement Heart [id number] Normal sinus rhythm Possible Left atrial enlargement Anteroseptal infarct, age undetermined Abnormal ECG
== END 2019-06-02 04:04 | disposition home or self-care (01) ==
LOC: EDBD 00:41 → EMR 00:56 → EDBEDREQ 02:46 → CANBEDREQ 02:56 → EMR 04:04
DX: J45.41 Moderate persistent asthma with (acute) exacerbation (principal); E87.1 Hypo-osmolality and hyponatremia; E87.6 Hypokalemia; R51 Headache; D72.1 Eosinophilia; I10 Essential (primary) hypertension; Z86.79 Personal history of other diseases of the circulatory system
CPT/HCPCS: 36415; 71045; 80053; 81003; 82550; 83735; 83880; 84300; 84484; 85025; 85610; 85730; 87040; 93005; 94640; 96361; 96374; 96375; J1200; J2270; J2765; J2930; Z7502; 99284; J8499

== ENCOUNTER 2019-06-16 21:52 | Emergency (ER) | payer MEDICAID ==
[~2019-06-16] VITALS: Ht 152.4 cm; Wt 97.5 kg
[~2019-06-16 21:52] MED LIST changes: +TYLENOL325 MG ORAL
[2019-06-16 22:00] VITALS: BP 130/64
[2019-06-16] MEDS ORDERED: Ketorolac 60mg Inj IM ONE (22:00)
--- NOTE | 2019-06-16 22:00 | NUR ---
ER Nurse Note: Pt brought in by ambulence from home c/o diffiuclty breathing since AM. Pt stated she is complient with her albutrol treatments but still has shortness of breath. Pt hx of asthma. Pt unknown trigger. Wheezes heard. EMS administered 1 round of albuterol; some what effective. O2 100% at bedside. Will continue to monitor.
--- NOTE | 2019-06-16 22:11 | Emergency Room Report ---
History of Present Illness General Chief Complaint: Dyspnea/Respdistress Source: Patient, Medical Record, EMS Present Illness HPI Is a 38-year-old female with a history of asthma. She presents with chief complaint of shortness of breath. Onset today. No relief with her nebulizer and albuterol inhaler. She called 911. She received 5 mg of albuterol. [place] better now. No nausea no vomiting. Also with a headache. Was here 2 weeks ago with a similar complaint. Denies any smoking or drug use. She was positive for methamphetamine in 2017. Positive chest pain. Worse with exertion. Better with treatment. Allergies: Coded Allergies: No Known Allergies (Unverified , 03/24/19) Patient History Past Medical History: see triage record, old chart reviewed, asthma Past Surgical History: none Pertinent Family History: none Social History: Denies: smoking Now: No Immunizations: other Reviewed Nursing Documentation: PMH: Agreed; PSxH: Agreed Nursing Documentation-PMH Past Medical History: No History, Except For Hx Hypertension: Yes Hx Asthma: Yes Hx Cancer: No Hx Gastrointestinal Problems: No Hx Neurological Problems: Yes - Anurysm 2011 Review of Systems Eye: Denies: eye pain, blurred vision ENT: Denies: ear pain, nose congestion, throat swelling Respiratory: Reports: shortness of breath, wheezing; Denies: cough Cardiovascular: Denies: chest pain, palpitations Gastrointestinal: Denies: abdominal pain, diarrhea, nausea, vomiting Musculoskeletal: Denies: back pain, joint pain Skin: Denies: rash Neurological: Denies: headache, numbness Endocrine: Denies: increased thirst, increased urine Hematologic/Lymphatic: Denies: easy bruising All Other Systems: negative except mentioned in HPI Physical Exam Vital Signs Date Time Temp Pulse Resp B/P (MAP) Pulse Ox O2 Delivery O2 Flow Rate FiO2 06/16/19 21:47 98.1 80 18 130/64 (86) 98 Room Air Vitals normal Sp02 EP Interpretation: reviewed, normal General Appearance: well appearing, no apparent distress, alert Head: normocephalic, atraumatic Eyes: bilateral eye PERRL, bilateral eye EOMI ENT: hearing grossly normal, normal pharynx Neck: full range of motion, supple, no meningismus Respiratory: chest non-tender, lungs clear, normal breath sounds Cardiovascular #1: regular rate, rhythm, no murmur Gastrointestinal: normal bowel sounds, non tender, no mass, no organomegaly, no bruit, non-distended Musculoskeletal: back normal, gait/station normal, normal range of motion Psychiatric: anxious Medical Decision Making Diagnostic Impression: Primary Impression: Asthma exacerbation Qualified Codes: J45.21 - Mild intermittent asthma with (acute) exacerbation ER Course Patient presents with asthma exacerbation. No wheezing here after neb laser treatment by EMS. Since it cleared up I see no need for chronic steroid. We will put her on steroid inhaler. No evidence of ACS, PE, dissection name a few. Negative for drugs on UDS. Last Vital Signs Date Time Temp Pulse Resp B/P (MAP) Pulse Ox O2 Delivery O2 Flow Rate FiO2 06/16/19 21:47 98.1 80 18 130/64 (86) 98 Room Air Status: improved Disposition: HOME, SELF-CARE Condition: Stable Scripts Fluticasone/Vilanterol (Breo Ellipta 200-25 Mcg INH) 1 Each Blst.w.dev 1 EACH IH BID, #1 UNIT Prov: Jaspreet Arreaga MD 06/16/19 Albuterol Sulfate* (ALBUTEROL SULFATE MDI*) 8.5 Gm Hfa.aer.ad 2 PUFF INH Q4H PRN for cough/wheezing, #1 EA 0 Refills Prov: Jaspreet Arreaga MD 06/16/19 Additional Instructions: Follow-up with your doctor in 7 days. Return if symptoms worsen. Jaspreet Arreaga MD Jun 16, 2019 22:11
--- NOTE | 2019-06-16 22:29 | NUR ---
ER Nurse Note: All orders completed per ERMD orders. Urine sent, awaiting labs. Scooby continue to montior.
[2019-06-16] MEDS ORDERED: ALBUTEROL SULF8.5 GM INH (23:22)
[2019-06-16] MEDS ORDERED: BREO ELLIPTA 21 EACH IH (23:22)
[2019-06-16] MEDS ORDERED: PREDNISONE20 MG ORAL (23:26)
[2019-06-16 23:29] VITALS: BP 130/64
--- NOTE | 2019-06-16 23:30 | NUR ---
ER DISCHARGE NOTE: Patient is cleared to be discharged per ERMD, pt is aox4, on room air, with stable vital signs. pt was given dc and prescription instructions, pt was able to verbalize understanding, pt id band removed. pt is able to ambulate with steady gait. pt took all belongings.
== END 2019-06-16 23:30 | disposition home or self-care (01) ==
LOC: EDBD 21:52 → EMR 22:23
DX: J45.21 Mild intermittent asthma with (acute) exacerbation (principal); R51 Headache
CPT/HCPCS: 80307; 96372; J7512; Z7502; 99283

== ENCOUNTER 2019-06-25 23:03 | Emergency (ER) | payer MEDICAID ==
[~2019-06-25] VITALS: Ht 160 cm; Wt 90.7 kg
[~2019-06-25 23:03] MED LIST changes: +BREO ELLIPTA 21 EACH IH
[2019-06-25 23:15] VITALS: BP 157/121
[2019-06-25] MEDS ORDERED: Dexamethasone 4mg/ml vial IVP ONE (23:15)
[2019-06-25] MEDS: Ipratropium 0.02% Inh Soln 2.5ml UD HHN SCH ×7 (23:15→23:50)
[2019-06-25] MEDS: Albuterol ud Inhalation HHN SCH ×7 (23:15→23:50)
--- NOTE | 2019-06-25 23:15 | NUR ---
ED Nurse Note: PT BIBA R94 FROM HOME C/C SOB X 4 DAYS, HX ASTHMA, PT HAS BEEN USING ALBUTEROL BUT NO IMPROVEMENT. PT RECEIVED BREATHING TX X1 ALBUTEROL ON FIELD. AO4. NAD. VSS. 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
--- NOTE | 2019-06-25 23:20 | Emergency Room Report ---
History of Present Illness General Chief Complaint: Asthma Source: Patient, EMS Present Illness HPI 39-year-old female history of asthma, history of smoking presents with acute shortness of breath that started 4 days ago, patient has been using albuterol without any help she is been having cough, no chest pain, she does endorse chest tightness, difficulty breathing, alleviated with albuterol no aggravating factors severity is moderate, constant, no fevers no chills, patient was brought in by EMS for evaluation. She denies ever being intubated or placed in ICU. Allergies: Coded Allergies: No Known Allergies (Unverified , 03/24/19) Patient History Past Medical History: see triage record Reviewed Nursing Documentation: PMH: Agreed; PSxH: Agreed Nursing Documentation-PMH Past Medical History: No History, Except For Hx Hypertension: Yes Hx Asthma: Yes Hx Cancer: No Hx Gastrointestinal Problems: No Hx Neurological Problems: Yes - Anurysm 2011 Review of Systems All Other Systems: negative except mentioned in HPI Physical Exam Vital Signs Date Time Temp Pulse Resp B/P (MAP) Pulse Ox O2 Delivery O2 Flow Rate FiO2 06/25/19 23:03 97.9 98 20 157/121 (133) 98 Room Air Sp02 EP Interpretation: reviewed, normal General Appearance: well appearing, no apparent distress, alert Head: normocephalic, atraumatic Eyes: bilateral eye PERRL, bilateral eye EOMI ENT: uvula midline, moist mucus membranes Neck: supple, thyroid normal, supple/symm/no masses Respiratory: no respiratory distress, accessory muscle use, wheezing - Wheezing moderate Cardiovascular #1: normal peripheral pulses, no edema, no gallop, no murmur, tachycardia Gastrointestinal: non tender, soft, no guarding, no rebound Musculoskeletal: normal inspection Neurologic: alert, oriented x3 Psychiatric: mood/affect normal Skin: no rash, warm/dry Procedures Critical Care Time Critical Care Time Given the critical condition in which the patient arrived, the patient was immediately assessed by myself and the nurse, and cardiac monitoring initiated due to the potential for rapid decompensation of the patient's clinical condition. During the course of the patient's stay, I spent a considerable amount of time at the bedside performing serial re-evaluations of the patient's hemodynamic and clinical status because of the recognized potential threat to life or limb in this condition. I then had a chance to review not only all of the available current laboratory and radiographic studies obtained today, but I also reviewed old records available to me at the time. 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 Sequential vital signs were obtained. Critical Care time of 32 minutes was performed exclusive of billable procedures. Medical Decision Making Diagnostic Impression: Primary Impression: COPD exacerbation Additional Impression: Pneumonia Qualified Codes: J18.1 - Lobar pneumonia, unspecified organism ER Course 39-year-old female presents with acute shortness of breath history of COPD, most likely COPD exacerbation versus pneumonia versus URI Will provide patient with steroids, 6 rounds of duo nebs magnesium, normal saline for rehydration Patient was slowly improving however continued to have some shortness of breath Reevaluation at 12:38 AM, was going to admit patient, patient refused admission states that there is no one at home to help take care of her family Counseled patient she will be discharged home with return precautions and will provide her with albuterol, steroids, antibiotics The patient has requested to leave the ED against medical advice. The patient reason(s) for leaving include, but are not limited to, the following: patient has to take care of family. I believe this patient is of sound mind and competent to refuse medical care. The patient is responding and asking questions appropriately. The patient is oriented to person, place and time. The patient is not psychotic, delusional, suicidal, homicidal or hallucinating. The patient demonstrates a normal mental capacity to make decisions regarding their healthcare. The patient is clinically sober and does not appear to be under the influence of any illicit drugs at this time. The patient has been advised of the risks, in layman terms, of leaving AMA which include, but are not limited to , coma, permanent disability, loss of current lifestyle, delay in diagnosis. Alternatives have been offered - the patient remains steadfast in their wish to leave. The patient has been advised that should they change their mind they are welcome to return to this hospital, or any other, at any time. The patient understands that in no way does an AMA discharge mean that I do not want them to have the best medical care available. To this end, I have provided appropriate prescriptions, referrals, and discharge instructions. The patient did sign AMA paperwork. The above discussion was witnessed by another member of staff. Laboratory Tests Test 06/25/19 23:15 White Blood Count 15.8 K/UL (4.8-10.8) H Red Blood Count 4.08 M/UL (4.20-5.40) L Hemoglobin 16.9 G/DL (12.0-16.0) H Hematocrit 40.1 % (37.0-47.0) Mean Corpuscular Volume 98 FL (80-99) Mean Corpuscular Hemoglobin 41.4 PG (27.0-31.0) H Mean Corpuscular Hemoglobin Concent 42.2 G/DL (32.0-36.0) H Red Cell Distribution Width 12.1 % (11.6-14.8) Platelet Count 209 K/UL (150-450) Mean Platelet Volume 8.3 FL (6.5-10.1) Neutrophils (%) (Auto) 70.0 % (45.0-75.0) Lymphocytes (%) (Auto) 18.2 % (20.0-45.0) L Monocytes (%) (Auto) 7.6 % (1.0-10.0) Eosinophils (%) (Auto) 3.2 % (0.0-3.0) H Basophils (%) (Auto) 1.0 % (0.0-2.0) Sodium Level 140 MMOL/L (136-145) Potassium Level 3.7 MMOL/L (3.5-5.1) Chloride Level 106 MMOL/L (98-107) Carbon Dioxide Level 22 MMOL/L (21-32) Anion Gap 12 mmol/L (5-15) Blood Urea Nitrogen 10 mg/dL (7-18) Creatinine 0.9 MG/DL (0.55-1.30) Estimate Glomerular Filtration Rate > 60 mL/min (>60) Glucose Level 107 MG/DL (74-106) H Calcium Level 8.9 MG/DL (8.5-10.1) Total Bilirubin 0.4 MG/DL (0.2-1.0) Aspartate Amino Transferase (AST) 17 U/L (15-37) Alanine Aminotransferase (ALT) 32 U/L (12-78) Alkaline Phosphatase 58 U/L (46-116) Total Protein 7.5 G/DL (6.4-8.2) Albumin 3.8 G/DL (3.4-5.0) Globulin 3.7 g/dL Albumin/Globulin Ratio 1.0 (1.0-2.7) Human Chorionic Gonadotropin, Quant < 1 mIU/mL (1-6) L EKG Diagnostic Results EKG Time: 23:06 EP Interpretation: Sinus tachycardia, rate 101, QTc 453, no acute ST elevations , normal axis Rhythm Strip Diag. Results Rhythm Strip Time: 23:19 EP Interpretation: yes Rate: 104 Rhythm: other - Sinus tachycardia, rate 104 Chest X-Ray Diagnostic Results Chest X-Ray Diagnostic Results : Chest X-Ray Ordered: Yes # of Views/Limited/Complete: 1 View Indication: Shortness of Breath EP Interpretation: Yes Interpretation: other - Right infiltrate Impression: Other Electronically Signed by: Henry Mon MD Last Vital Signs Date Time Temp Pulse Resp B/P (MAP) Pulse Ox O2 Delivery O2 Flow Rate FiO2 06/25/19 23:03 97.9 98 20 157/121 (133) 98 Room Air Disposition: AGAINST MEDICAL ADVICE Condition: Stable Scripts Azithromycin* (ZITHROMAX*) 250 Mg Tablet 250 MG ORAL DAILY, #6 TAB 0 Refills Take two tables once daily for 1 day, then one tablet once daily for 4 days. Prov: Henry Mon MD 06/26/19 Amoxicillin/Potassium Clav 875-125* (AUGMENTIN 875-125 TABLET*) 1 Each Tablet 1 TAB ORAL TWICE A DAY, #14 TAB Prov: Henry Mon MD 06/26/19 Albuterol Sulfate* (ALBUTEROL SULFATE MDI*) 8.5 Gm Hfa.aer.ad 2 PUFF INH Q4H PRN for cough/wheezing, #1 EA 0 Refills Prov: Henry Mon MD 06/26/19 Prednisone* (PREDNISONE*) 50 Mg Tablet 50 MG ORAL DAILY, #4 TAB 0 Refills Prov: Henry Mon MD 06/26/19 Referrals: [facility] Patient Instructions: Chronic Obstructive Pulmonary Disease Exacerbation, Community-Acquired Pneumonia, Adult, [id number] Additional Instructions: The patient was provided with discharge instructions, notified to follow-up with a primary care doctor and or specialist in the next 24-48 hours, and to return to the ED if they have worsening of their symptoms. Please note that this report is being documented using [employer] technology. This can lead to erroneous entry secondary to incorrect interpretation by the dictating instrument. Henry Mon MD Jun 25, 2019 23:20
[2019-06-25 23:29] LABS: EOSINOPHILS % (AUTO) 3.2 % (0.0-3.0); HEMATOCRIT 40.1 % (37.0-47.0); HEMOGLOBIN 16.9 G/DL (12.0-16.0); LYMPHOCYTES % (AUTO) 18.2 % (20.0-45.0); MEAN CORPUSCULAR VOLUME 98 FL (80-99); MONOCYTES % (AUTO) 7.6 % (1.0-10.0); PLATELET COUNT 209 K/UL (150-450); RED BLOOD COUNT 4.08 M/UL (4.20-5.40); RED CELL DISTRIBUTION WIDTH 12.1 % (11.6-14.8); WHITE BLOOD COUNT 15.8 K/UL (4.8-10.8)
[2019-06-25] MEDS ORDERED: DiphenhydrAMINE 50mg/ml Inj IVP ONE (23:30)
[2019-06-25 23:40] LABS: ANION GAP 12 mmol/L (5-15); BLOOD UREA NITROGEN 10 mg/dL (7-18); CALCIUM 8.9 MG/DL (8.5-10.1); CARBON DIOXIDE 22 MMOL/L (21-32); CHLORIDE 106 MMOL/L (98-107); CREATININE 0.9 MG/DL (0.55-1.30); POTASSIUM 3.7 MMOL/L (3.5-5.1); SODIUM 140 MMOL/L (136-145)
[2019-06-25 23:45] LABS: ALANINE AMINOTRANSFERASE 32 U/L (12-78); ALBUMIN 3.8 G/DL (3.4-5.0); ALKALINE PHOSPHATASE 58 U/L (46-116); ASPARTATE AMINO TRANSFERASE 17 U/L (15-37); BILIRUBIN,TOTAL 0.4 MG/DL (0.2-1.0)
[2019-06-26] MEDS ORDERED: guaiFENesin w/Codeine 5ml Liq ud ORAL ONE
[2019-06-26] MEDS ORDERED: Azithromycin 500 MG in NS 275 ML IV ONE (00:30)
[2019-06-26] MEDS ORDERED: cefTRIAXone 1 GM in NS 55 ML IVPB ONE (00:30)
--- NOTE | 2019-06-26 00:42 | NUR ---
ED Nurse Note: PATIENT REFUSED ADMISSION. EXPLAINED RISK AND BENEFITS X 3; PT REFUSED. ERMD NOTIFIED. ERMD DISCUSSED CARE WITH PT; STILL REFUSED. PER PT, OFFSPRING LEFT AT HOME AND CANNOT BE ADMITTED. SIGNED AMA.
[2019-06-26] MEDS ORDERED: ZITHROMAX250 MG ORAL (00:43)
[2019-06-26] MEDS ORDERED: AUGMENTIN 875-1 EAC1 ORAL (00:43)
[2019-06-26] MEDS ORDERED: ALBUTEROL SULF8.5 GM INH (00:43)
[2019-06-26] MEDS ORDERED: PREDNISONE50 MG ORAL (00:43)
[2019-06-26] MEDS ORDERED: GUAIFENESI100 MG/5 M ORAL (01:04)
[2019-06-26 01:30] VITALS: BP 136/98
--- NOTE | 2019-06-26 01:30 | NUR ---
AMA: SEE AMA FORM. Patient left ama, pt is aox4, on room air, with stable vital signs. pt was prescription instructions, pt was able to verbalize understanding, pt id band and iv site removed without complications. pt is able to ambulate with steady gait. pt took all belongings.
--- NOTE | 2019-06-26 10:28 | Diagnostic Imaging Report ---
Indication: Cough Comparison: 06/02/2019 A single view chest radiograph was obtained. Findings: Question of a mild infiltrate at the right lung base demonstrated. Suggest follow-up and clinical correlation. Heart size is normal. Bones are unremarkable. IMPRESSION: Question of a right basal infiltrate.
--- NOTE | 2019-06-26 16:18 | Cardiology Report ---
APPROVED REPORT EKG Measurement Heart [id number] Sinus tachycardia Possible Left atrial enlargement Cannot rule out Anterior infarct, age undetermined Abnormal ECG
== END 2019-06-26 01:30 | disposition left against medical advice (07) ==
LOC: EDBD 23:03 → EMR 23:20
DX: J44.1 Chronic obstructive pulmonary disease with (acute) exacerbation (principal); J18.1 Lobar pneumonia, unspecified organism; Z87.891 Personal history of nicotine dependence; Z79.51 Long term (current) use of inhaled steroids; I10 Essential (primary) hypertension
CPT/HCPCS: 36415; 71045; 80053; 84702; 85025; 93005; 94640; 94664; 96365; 96366; 96367; 96375; J0456; J0696; J0780; J1100; J1200; J7050; Z7502; 99291

== ENCOUNTER 2020-06-23 20:37 | Inpatient (IN) | payer MEDICAID ==
[~2020-06-23] VITALS: Ht 162.6 cm; Wt 103.0 kg
[~2020-06-23 20:37] MED LIST changes: +AUGMENTIN 875-1 EAC1 ORAL; +GUAIFENESI100 MG/5 M ORAL; +PREDNISONE50 MG ORAL; +ZITHROMAX250 MG ORAL
[2020-06-23] MEDS ORDERED: Omnipaque-300 100ml vial INJ PRN (20:45)
[2020-06-23] MEDS ORDERED: Morphine Sulfate 4mg/ml Inj (IV USE ONLY) IVP ONE ×3 (20:45→23:30)
[2020-06-23 20:59] LABS: HEMATOCRIT 51.5 % (37.0-47.0); HEMOGLOBIN 17.1 G/DL (12.0-16.0); MEAN CORPUSCULAR VOLUME 104 FL (80-99); PLATELET COUNT 220 K/UL (150-450); RED BLOOD COUNT 4.94 M/UL (4.20-5.40); RED CELL DISTRIBUTION WIDTH 13.4 % (11.6-14.8); WHITE BLOOD COUNT 20.1 K/UL (4.8-10.8)
[2020-06-23 21:09] LABS: ANION GAP 9 mmol/L (5-15); BLOOD UREA NITROGEN 8 mg/dL (7-18); CALCIUM 8.9 MG/DL (8.5-10.1); CARBON DIOXIDE 29 MMOL/L (21-32); CHLORIDE 103 MMOL/L (98-107); CREATININE 0.9 MG/DL (0.55-1.30); SODIUM 141 MMOL/L (136-145)
[2020-06-23 21:12] VITALS: BP 231/113
--- NOTE | 2020-06-23 21:13 | Emergency Room Report ---
History of Present Illness General Chief Complaint: Abdominal Pain Source: Patient (Tiffany Steele DO) Present Illness HPI The patient states that she suddenly developed epigastric pain today about 4 hours ago. She states the pain is severe and in her epigastrium. She is also had nausea and vomiting. She does not associate the symptoms with meals. She notes that she did have similar symptoms on Monday (4 days ago), however the symptoms resolved. She denies chest pain or shortness of breath. She denies fever chills. She denies dysuria or hematuria. She denies constipation or diarrhea. She has no other complaints. (Tiffany Steele DO) Allergies: Coded Allergies: No Known Allergies (Unverified , 03/24/19) COVID-19 Screening Contact w/high risk pt: No Experienced COVID-19 symptoms?: No COVID-19 Testing performed MEDICAL OFFICE SPECIALIST: No (Tiffany Steele DO) Patient History Past Medical History: HTN, asthma, other - Brain aneurysm. Social History: Denies: smoking, alcohol use, drug use Last Menstrual Period: unk Reviewed Nursing Documentation: PMH: Agreed; PSxH: Agreed (Tiffany Steele DO) Nursing Documentation-PMH Hx Hypertension: Yes Hx Asthma: Yes Hx Cancer: No Hx Gastrointestinal Problems: No Hx Neurological Problems: Yes - Anurysm 2011 (Tiffany Steele DO) Review of Systems All Other Systems: negative except mentioned in HPI (Tiffany Steele ) Physical Exam Vital Signs Date Time Temp Pulse Resp B/P (MAP) Pulse Ox O2 Delivery O2 Flow Rate FiO2 06/23/20 20:39 98.8 108 23 260/163 (195) 99 Room Air Sp02 EP Interpretation: reviewed, normal General Appearance: no apparent distress, alert, GCS 15, non-toxic Head: normocephalic, atraumatic Eyes: bilateral eye normal inspection, bilateral eye PERRL ENT: hearing grossly normal, normal pharynx, no angioedema, normal voice Neck: normal inspection, full range of motion, supple/symm/no masses Respiratory: chest non-tender, lungs clear, normal breath sounds, no respiratory distress, no retraction, no accessory muscle use, speaking full sentences Cardiovascular #1: no edema, tachycardia Gastrointestinal: normal bowel sounds, soft, non-distended, no guarding, no rebound, tenderness - TTP in the epigastrium Rectal: deferred Musculoskeletal: back normal, normal range of motion, gait/station normal, non- tender Neurologic: alert, motor strength/tone normal, oriented x3, sensory intact, responsive, speech normal Psychiatric: judgement/insight normal, memory normal, mood/affect normal, no suicidal/homicidal ideation Skin: no rash, normal color (Tiffany Steele DO) Medical Decision Making Diagnostic Impression: Primary Impression: Hypertension Additional Impressions: Pancreatitis ETOH abuse Leukocytosis Common bile duct dilatation ER Course The patient presents with epigastric pain but very concerning was the patient's blood pressure which was 260 systolic. Further discussion with the patient and she has difficult to control blood pressure. She takes labetalol 200 mg twice daily to control her blood pressure. She has a history of a brain aneurysm that is likely related to this. She stated that she did not take her evening dose of her labetalol. I initially treated her with her normal 200 mg of labetalol and morphine for pain control to control her blood pressure. Given the location of the pain he also presumptively treated for gastritis with Pepcid, Mylanta and viscous lidocaine. The patient was found to have pancreatitis. Later she admitted to me that she drinks alcohol heavily and yesterday she did drink a large amount of beer. The patient also underwent imaging to assess her gallbladder and abdomen in general with an abdomen ultrasound and a CT of the abdomen pelvis which showed findings consistent with pancreatitis and there was a dilated common bile duct, however, no stone identified and with normal liver function tests unlikely to be choledocholithiasis. The patient's white blood cell count was elevated and so I did give Mefoxin presumptively, although, this may be an acute phase reactant. The patient will be admitted for pancreatitis and further evaluation for her dilated common bile duct by gastroenterology and general surgery. Laboratory Tests Test 06/23/20 20:50 06/23/20 22:15 White Blood Count 20.1 K/UL (4.8-10.8) H Red Blood Count 4.94 M/UL (4.20-5.40) Hemoglobin 17.1 G/DL (12.0-16.0) H Hematocrit 51.5 % (37.0-47.0) H Mean Corpuscular Volume 104 FL (80-99) H Mean Corpuscular Hemoglobin 34.6 PG (27.0-31.0) H Mean Corpuscular Hemoglobin Concent 33.2 G/DL (32.0-36.0) Red Cell Distribution Width 13.4 % (11.6-14.8) Platelet Count 220 K/UL (150-450) Mean Platelet Volume 10.2 FL (6.5-10.1) H Neutrophils (%) (Auto) % (45.0-75.0) Lymphocytes (%) (Auto) % (20.0-45.0) Monocytes (%) (Auto) % (1.0-10.0) Eosinophils (%) (Auto) % (0.0-3.0) Basophils (%) (Auto) % (0.0-2.0) Differential Total Cells Counted 100 Neutrophils % (Manual) 75 % (45-75) Lymphocytes % (Manual) 15 % (20-45) L Monocytes % (Manual) 5 % (1-10) Eosinophils % (Manual) 1 % (0-3) Basophils % (Manual) 0 % (0-2) Band Neutrophils 4 % (0-8) Platelet Estimate Adequate Platelet Morphology Normal Polychromasia 1+ Macrocytosis 2+ Sodium Level 141 MMOL/L (136-145) Potassium Level 3.6 MMOL/L (3.5-5.1) Chloride Level 103 MMOL/L (98-107) Carbon Dioxide Level 29 MMOL/L (21-32) Anion Gap 9 mmol/L (5-15) Blood Urea Nitrogen 8 mg/dL (7-18) Creatinine 0.9 MG/DL (0.55-1.30) Estimated Glomerular Filtration Rate > 60 mL/min (>60) Glucose Level 111 MG/DL (74-106) H Calcium Level 8.9 MG/DL (8.5-10.1) Total Bilirubin 0.7 MG/DL (0.2-1.0) Aspartate Amino Transferase (AST) 28 U/L (15-37) Alanine Aminotransferase (ALT) 38 U/L (12-78) Alkaline Phosphatase 52 U/L (46-116) Total Protein 6.8 G/DL (6.4-8.2) Albumin 3.4 G/DL (3.4-5.0) Globulin 3.4 g/dL Albumin/Globulin Ratio 1.0 (1.0-2.7) Lipase 1303 U/L (73-393) H Urine Color Pale yellow Urine Appearance Clear Urine pH 7 (4.5-8.0) Urine Specific [place] 1.010 (1.005-1.035) Urine Protein 1+ (NEGATIVE) H Urine Glucose (UA) Negative (NEGATIVE) Urine Ketones Negative (NEGATIVE) Urine Blood Negative (NEGATIVE) Urine Nitrite Negative (NEGATIVE) Urine Bilirubin Negative (NEGATIVE) Urine Urobilinogen Normal MG/DL (0.0-1.0) Urine Leukocyte Esterase 1+ (NEGATIVE) H Urine RBC Pending Urine WBC Pending Urine Squamous Epithelial Cells Pending Urine Bacteria Pending Urine HCG, Qualitative Negative (NEGATIVE) Urine Opiates Screen Pending Urine Barbiturates Screen Pending Phencyclidine (PCP) Screen Pending Urine Amphetamines Screen Pending Urine Benzodiazepines Screen Pending Urine Cocaine Screen Pending Urine Marijuana (THC) Screen Pending (Tiffany Steele DO) ER Course 39-year-old female here with abdominal pain. Patient was signed out to me by the previous physician. She remained hemodynamically stable and neurovascularly intact. She was complaining of pain and was given another dose of IV pain medication with good resolution. She was notably hypertensive with a blood pressure of 215/130. She was given pain medication, 10 mg of labetalol with some resolution of her blood pressure but then required another 10 mg of labetalol to be given with good resolution. Repeat blood pressure was 175/85. Patient stable for MedSurg. (Jose De Jesus Weiner M.D.) CT/MRI/US Diagnostic Results CT/MRI/US Diagnostic Results : Imaging Test Ordered: CT abd/pelvis, US abd Impression IMPRESSION: 1. Mild inflammatory change adjacent to the tail the pancreas. May represent pancreatitis in the appropriate clinical setting. 2. 1.4 cm hypodense lesion within the tail the pancreas. May represent cystic neoplasm, cyst, versus IPMN. MRCP can be utilized for further evaluation. 3. Mild dilation of the proximal common bile duct measuring 1.0 cm. No obvious obstructing stone or mass. 4. Intrauterine device, which appears slightly malpositioned within the lower uterine segment. 5. Diverticulosis without evidence of diverticulitis. 6. Hepatic steatosis. (Tiffany Steele DO) Last Vital Signs Date Time Temp Pulse Resp B/P (MAP) Pulse Ox O2 Delivery O2 Flow Rate FiO2 06/23/20 21:02 91 233/134 06/23/20 20:39 98.8 23 99 Room Air (Tiffany Steele DO) Referrals: [facility],REFERRING (PCP) Tiffany Steele DO Jun 23, 2020 21:13 Jose De Jesus Weiner M.D. Jun 24, 2020 01:09
[2020-06-23 21:14] LABS: ALANINE AMINOTRANSFERASE 38 U/L (12-78); ALBUMIN 3.4 G/DL (3.4-5.0); ALKALINE PHOSPHATASE 52 U/L (46-116); ASPARTATE AMINO TRANSFERASE 28 U/L (15-37); BILIRUBIN,TOTAL 0.7 MG/DL (0.2-1.0); POTASSIUM 3.6 MMOL/L (3.5-5.1)
[2020-06-23] MEDS ORDERED: Lidocaine 2% Visc 15ml soln ORAL ONE (21:15)
[2020-06-23 22:00] VITALS: BP 218/104
--- NOTE | 2020-06-23 22:19 | Diagnostic Imaging Report ---
EXAM: CT Abdomen and Pelvis With Intravenous Contrast CLINICAL HISTORY: ABD PAIN TECHNIQUE: Axial computed tomography images of the abdomen and pelvis with intravenous contrast. CTDI is 14.4 mGy and DLP is 736.3 mGy-cm. One or more of the following dose reduction techniques were used: automated exposure control, adjustment of the mA and/or kV according to patient size, use of iterative reconstruction technique. COMPARISON: CT abdomen and pelvis dated 04/13/2017 FINDINGS: Lung bases: Unremarkable. No mass. No consolidation. ABDOMEN: Liver: Hepatic steatosis. Gallbladder and bile ducts: Dilation of the common bile duct measuring up to 1.0 cm. No calcified stones. Pancreas: Mild inflammatory change adjacent to the tail of the pancreas. 1.4 cm hypodensity within the tail of the pancreas. No ductal dilation. Spleen: Unremarkable. No splenomegaly. Adrenals: Unremarkable. No mass. Kidneys and ureters: Unremarkable. No solid mass. No hydronephrosis. Stomach and bowel: Mild diverticulosis without evidence of diverticulitis. No obstruction. PELVIS: Appendix: No findings to suggest acute appendicitis. Bladder: Unremarkable. No mass. Reproductive: Unremarkable as visualized. ABDOMEN and PELVIS: Intraperitoneal space: Unremarkable. No free air. No significant fluid collection. Bones/joints: No acute fracture. No dislocation. Soft tissues: Right inguinal fat-containing hernia. Vasculature: Unremarkable. No abdominal aortic aneurysm. Lymph nodes: Unremarkable. No enlarged lymph nodes. Tubes, lines and devices: Intrauterine device within the uterus. This appears within the lower uterine segment. IMPRESSION: 1. Mild inflammatory change adjacent to the tail the pancreas. May represent pancreatitis in the appropriate clinical setting. 2. 1.4 cm hypodense lesion within the tail the pancreas. May represent cystic neoplasm, cyst, versus IPMN. MRCP can be utilized for further evaluation. 3. Mild dilation of the proximal common bile duct measuring 1.0 cm. No obvious obstructing stone or mass. 4. Intrauterine device, which appears slightly malpositioned within the lower uterine segment. 5. Diverticulosis without evidence of diverticulitis. 6. Hepatic steatosis.
[2020-06-23] MEDS ORDERED: cefOXitin Sod 1 GM in D5W 55 ML IVPB ONE (22:30)
[2020-06-23 22:32] LABS: APPEARANCE,URINE CLEAR; BILIRUBIN, URINE NEGATIVE (NEGATIVE); COLOR,URINE PALE YELLOW; GLUCOSE, URINE (UA) NEGATIVE (NEGATIVE); KETONES,URINE NEGATIVE (NEGATIVE); LEUKOCYTE ESTERASE ,URINE 1+ (NEGATIVE); NITRITE,URINE NEGATIVE (NEGATIVE); PH,URINE 7 (4.5-8.0); PROTEIN,URINE 1+ (NEGATIVE); UROBILINOGEN,URINE NORMAL MG/DL (0.0-1.0)
[2020-06-23 23:30] VITALS: BP 190/101
[2020-06-23] MEDS ORDERED: Labetalol 5mg/ml 20ml vial IV ONE (23:30)
--- NOTE | 2020-06-23 23:30 | Diagnostic Imaging Report ---
EXAM: US Abdomen Complete CLINICAL HISTORY: PAIN TECHNIQUE: Real-time ultrasound of the abdomen with image documentation. COMPARISON: CT abdomen and pelvis dated 06/23/2020 FINDINGS: Liver: Diffuse increased hepatic echogenicity. No intrahepatic bile duct dilation. Gallbladder: Gallbladder wall measures 2 mm. No gallstones. Common bile duct: The common bile duct is dilated measuring 9 mm. No stones. Pancreas: Unremarkable as visualized. Kidneys: The right kidney measures 11.0 x 4.4 x 5.5 cm. The left kidney measures 11.0 x 5.9 x 4.2 cm. No stones. No hydronephrosis. Spleen: The spleen measures 9.1 cm. Aorta: Unremarkable. No aneurysm. Inferior vena cava: Unremarkable. IMPRESSION: 1. Common bile duct. No evidence of obstructing stone or mass. MRCP can be considered as clinically indicated. 2. Hepatic steatosis.
[2020-06-24] VITALS (10 sets, daily range): BP systolic 151–242; BP diastolic 79–137
[2020-06-24] MEDS ORDERED: Labetalol 5mg/ml 20ml vial IV ONE (00:30)
[2020-06-24] MEDS ORDERED: HYDROmorphone 1mg/ml Carpuject IVP PRN (01:15)
[2020-06-24] MEDS ORDERED: HYDROmorphone 1mg/ml Carpuject IVP SCH (03:00)
[2020-06-24] MEDS ORDERED: Hydromorphone 0.5mg/0.5ml inj IVP PRN (03:15)
[2020-06-24] MEDS ORDERED: Albuterol 90mcg Inhaler 8gm INH PRN (08:00)
[2020-06-24] MEDS: Morphine Sulfate 2mg/ml Inj(IV/IM USE ONLY) IVP PRN ×4 (08:23→20:05)
[2020-06-24] MEDS ORDERED: Levofloxacin 500mg tab ORAL SCH (09:00)
[2020-06-24] MEDS: Thiamine HCl 100 MG in D5W 55 ML IVPB SCH (11:02)
[2020-06-24] MEDS: Folic Acid 1 MG, Magnesium Sulfate 2,000 MG, Multivitamin - 12 Injection 10 ML in Sodiu... IV SCH (11:02)
[2020-06-24] MEDS ORDERED: Enalaprilat 2.5mg/2ml Inj IV PRN (11:30)
[2020-06-24] MEDS: Albuterol ud Inhalation HHN PRN ×2 (12:21→22:20)
--- NOTE | 2020-06-24 14:13 | General Progress Note ---
Subjective ROS Limited/Unobtainable: Yes Allergies: Coded Allergies: No Known Allergies (Unverified , 03/24/19) Objective Last 24 Hour Vital Signs Date Time Temp Pulse Resp B/P (MAP) Pulse Ox O2 Delivery O2 Flow Rate FiO2 06/24/20 13:45 233/140 06/24/20 12:28 242/120 06/24/20 12:26 85 16 98 Room Air 21 83 17 98 06/24/20 12:00 98.0 90 19 242/120 (160) 93 06/24/20 12:00 90 06/24/20 11:00 94 06/24/20 09:19 98.1 88 20 218/122 (154) 94 06/24/20 09:00 Room Air 06/24/20 08:00 98.2 88 20 192/92 (125) 94 06/24/20 07:09 190/96 06/24/20 04:41 190/96 06/24/20 04:36 Room Air 06/24/20 04:17 98.1 06/24/20 04:00 98.1 80 20 190/96 (127) 94 06/24/20 02:43 98.0 90 18 154/92 98 Room Air 06/24/20 02:31 97.7 79 20 151/79 (103) 94 06/24/20 01:49 98.7 06/24/20 01:45 98.7 88 20 154/86 99 Room Air 06/24/20 01:25 98.7 90 20 161/92 99 Room Air 06/24/20 01:19 174/94 06/24/20 00:53 98.7 90 20 174/87 99 Room Air 06/24/20 00:29 94 191/90 06/24/20 00:19 97.7 06/23/20 23:47 90 218/110 06/23/20 23:30 98.6 92 21 190/101 99 Room Air 06/23/20 23:20 98.8 06/23/20 22:00 98.4 89 22 218/104 99 Room Air 06/23/20 21:24 98.8 06/23/20 21:12 91 21 Room Air 06/23/20 21:12 98.8 90 22 231/113 99 Room Air 06/23/20 21:02 91 233/134 06/23/20 20:39 98.8 108 23 260/163 (195) 99 Room Air Intake and Output 06/23/20 06/24/20 19:00 07:00 # Bowel Movements 1 Laboratory Tests 06/23/20 20:50: White Blood Count 20.1H, Red Blood Count 4.94, Hemoglobin 17.1H, Hematocrit 51.5H, Mean Corpuscular Volume 104H, Mean Corpuscular Hemoglobin 34.6H, Mean Corpuscular Hemoglobin Concent 33.2, Red Cell Distribution Width 13.4, Platelet Count 220, Mean Platelet Volume 10.2H, Neutrophils (%) (Auto) , Lymphocytes (%) (Auto) , Monocytes (%) (Auto) , Eosinophils (%) (Auto) , Basophils (%) (Auto) , Differential Total Cells Counted 100, Neutrophils % (Manual) 75, Lymphocytes % (Manual) 15L, Monocytes % (Manual) 5, Eosinophils % (Manual) 1, Basophils % (Manual) 0, Band Neutrophils 4, Platelet Estimate Adequate, Platelet Morphology Normal, Polychromasia 1+, Macrocytosis 2+, Sodium Level 141, Potassium Level 3.6, Chloride Level 103, Carbon Dioxide Level 29, Anion Gap 9, Blood Urea Nitrogen 8, Creatinine 0.9, Estimat Glomerular Filtration Rate > 60, Glucose Level 111H, Calcium Level 8.9, Total Bilirubin 0.7, Aspartate Amino Transf (AST/SGOT) 28, Alanine Aminotransferase (ALT/SGPT) 38, Alkaline Phosphatase 52, Total Protein 6.8, Albumin 3.4, Globulin 3.4, Albumin/Globulin Ratio 1.0, Lipase 1303H 06/23/20 22:15: Urine Color Pale yellow, Urine Appearance Clear, Urine pH 7, Urine Specific [place] 1.010, Urine Protein 1+H, Urine Glucose (UA) Negative, Urine Ketones Negative, Urine Blood Negative, Urine Nitrite Negative, Urine Bilirubin Negative, Urine Urobilinogen Normal, Urine Leukocyte Esterase 1+H, Urine RBC 0- 2, Urine WBC 0-2, Urine Squamous Epithelial Cells Occasional, Urine Bacteria Occasional, Urine HCG, Qualitative Negative, Urine Opiates Screen PositiveH, Urine Barbiturates Screen Negative, Phencyclidine (PCP) Screen Negative, Urine Amphetamines Screen Negative, Urine Benzodiazepines Screen Negative, Urine Cocaine Screen Negative, Urine Marijuana (THC) Screen Negative Height (Feet): 5 Height (Inches): 4.00 Weight (Pounds): 240 General Appearance: alert EENT: normal ENT inspection Neck: supple Cardiovascular: normal rate Respiratory/Chest: decreased breath sounds Abdomen: normal bowel sounds, non tender, soft Extremities: non-tender Assessment/Plan Problem List: (1) Pancreatitis ICD Codes: K85.90 - Acute pancreatitis without necrosis or infection, unspecified SNOMED: 02717062 (2) ETOH abuse ICD Codes: F10.10 - Alcohol abuse, uncomplicated SNOMED: 46959909 (3) Hypertension ICD Codes: I10 - Essential (primary) hypertension SNOMED: 61969053 (4) Abdominal pain ICD Codes: R10.9 - Unspecified abdominal pain SNOMED: 17642153 (5) Diverticulosis ICD Codes: K57.90 - Diverticulosis of intestine, part unspecified, without perforation or abscess without bleeding SNOMED: 478660944 (6) Fatty liver ICD Codes: K76.0 - Fatty (change of) liver, not elsewhere classified SNOMED: 141390296 (7) Brain aneurysm ICD Codes: I67.1 - Cerebral aneurysm, nonruptured SNOMED: 269304983, 105910895 Assessment/Plan: npo increase IVF to 150 banana bag pain control repeat labs Paco Alexandre MD Jun 24, 2020 14:13
--- NOTE | 2020-06-24 15:41 | Cardiac Electrophysiology PN ---
Subjective Subjective [id number] Objective Last 24 Hour Vital Signs Date Time Temp Pulse Resp B/P (MAP) Pulse Ox O2 Delivery O2 Flow Rate FiO2 06/24/20 13:45 233/140 06/24/20 12:28 242/120 06/24/20 12:26 85 16 98 Room Air 21 83 17 98 06/24/20 12:00 98.0 90 19 242/120 (160) 93 06/24/20 12:00 90 06/24/20 11:00 94 06/24/20 09:19 98.1 88 20 218/122 (154) 94 06/24/20 09:00 Room Air 06/24/20 08:00 98.2 88 20 192/92 (125) 94 06/24/20 07:09 190/96 06/24/20 04:41 190/96 06/24/20 04:36 Room Air 06/24/20 04:17 98.1 06/24/20 04:00 98.1 80 20 190/96 (127) 94 06/24/20 02:43 98.0 90 18 154/92 98 Room Air 06/24/20 02:31 97.7 79 20 151/79 (103) 94 06/24/20 01:49 98.7 06/24/20 01:45 98.7 88 20 154/86 99 Room Air 06/24/20 01:25 98.7 90 20 161/92 99 Room Air 06/24/20 01:19 174/94 06/24/20 00:53 98.7 90 20 174/87 99 Room Air 06/24/20 00:29 94 191/90 06/24/20 00:19 97.7 06/23/20 23:47 90 218/110 06/23/20 23:30 98.6 92 21 190/101 99 Room Air 06/23/20 23:20 98.8 06/23/20 22:00 98.4 89 22 218/104 99 Room Air 06/23/20 21:24 98.8 06/23/20 21:12 91 21 Room Air 06/23/20 21:12 98.8 90 22 231/113 99 Room Air 06/23/20 21:02 91 233/134 06/23/20 20:39 98.8 108 23 260/163 (195) 99 Room Air Intake and Output 06/23/20 06/24/20 19:00 07:00 # Bowel Movements 1 Laboratory Tests Test 06/23/20 20:50 06/23/20 22:15 White Blood Count 20.1 K/UL (4.8-10.8) H Red Blood Count 4.94 M/UL (4.20-5.40) Hemoglobin 17.1 G/DL (12.0-16.0) H Hematocrit 51.5 % (37.0-47.0) H Mean Corpuscular Volume 104 FL (80-99) H Mean Corpuscular Hemoglobin 34.6 PG (27.0-31.0) H Mean Corpuscular Hemoglobin Concent 33.2 G/DL (32.0-36.0) Red Cell Distribution Width 13.4 % (11.6-14.8) Platelet Count 220 K/UL (150-450) Mean Platelet Volume 10.2 FL (6.5-10.1) H Neutrophils (%) (Auto) % (45.0-75.0) Lymphocytes (%) (Auto) % (20.0-45.0) Monocytes (%) (Auto) % (1.0-10.0) Eosinophils (%) (Auto) % (0.0-3.0) Basophils (%) (Auto) % (0.0-2.0) Differential Total Cells Counted 100 Neutrophils % (Manual) 75 % (45-75) Lymphocytes % (Manual) 15 % (20-45) L Monocytes % (Manual) 5 % (1-10) Eosinophils % (Manual) 1 % (0-3) Basophils % (Manual) 0 % (0-2) Band Neutrophils 4 % (0-8) Platelet Estimate Adequate Platelet Morphology Normal Polychromasia 1+ Macrocytosis 2+ Sodium Level 141 MMOL/L (136-145) Potassium Level 3.6 MMOL/L (3.5-5.1) Chloride Level 103 MMOL/L (98-107) Carbon Dioxide Level 29 MMOL/L (21-32) Anion Gap 9 mmol/L (5-15) Blood Urea Nitrogen 8 mg/dL (7-18) Creatinine 0.9 MG/DL (0.55-1.30) Estimat Glomerular Filtration Rate > 60 mL/min (>60) Glucose Level 111 MG/DL (74-106) H Calcium Level 8.9 MG/DL (8.5-10.1) Total Bilirubin 0.7 MG/DL (0.2-1.0) Aspartate Amino Transf (AST/SGOT) 28 U/L (15-37) Alanine Aminotransferase (ALT/SGPT) 38 U/L (12-78) Alkaline Phosphatase 52 U/L (46-116) Total Protein 6.8 G/DL (6.4-8.2) Albumin 3.4 G/DL (3.4-5.0) Globulin 3.4 g/dL Albumin/Globulin Ratio 1.0 (1.0-2.7) Lipase 1303 U/L (73-393) H Urine Color Pale yellow Urine Appearance Clear Urine pH 7 (4.5-8.0) Urine Specific [place] 1.010 (1.005-1.035) Urine Protein 1+ (NEGATIVE) H Urine Glucose (UA) Negative (NEGATIVE) Urine Ketones Negative (NEGATIVE) Urine Blood Negative (NEGATIVE) Urine Nitrite Negative (NEGATIVE) Urine Bilirubin Negative (NEGATIVE) Urine Urobilinogen Normal MG/DL (0.0-1.0) Urine Leukocyte Esterase 1+ (NEGATIVE) H Urine RBC 0-2 /HPF (0 - 2) Urine WBC 0-2 /HPF (0 - 2) Urine Squamous Epithelial Cells Occasional /LPF Urine Bacteria Occasional /HPF (NONE) Urine HCG, Qualitative Negative (NEGATIVE) Urine Opiates Screen Positive (NEGATIVE) H Urine Barbiturates Screen Negative (NEGATIVE) Phencyclidine (PCP) Screen Negative (NEGATIVE) Urine Amphetamines Screen Negative (NEGATIVE) Urine Benzodiazepines Screen Negative (NEGATIVE) Urine Cocaine Screen Negative (NEGATIVE) Urine Marijuana (THC) Screen Negative (NEGATIVE) Filiberto Hawthorne MD Jun 24, 2020 15:41
[2020-06-24] MEDS: Metoprolol Tartrate 5 MG in D5W 55 ML IVPB SCH ×2 (17:32→23:40)
--- NOTE | 2020-06-24 17:45 | Consultation ---
DATE OF CONSULTATION: 06/24/2020 CARDIOLOGY CONSULTATION CONSULTING PHYSICIAN: Filiberto Hawthorne M.D. REFERRING PHYSICIAN: Jarret Gutierres M.D. REASON FOR CONSULTATION: Epigastric pain and hypertension. HISTORY OF PRESENT ILLNESS: The patient is a 39-year-old lady with history of hypertension and alcohol use presented to the emergency room with epigastric pain of 4 hours prior to the admission. The patient also had nausea and vomiting. The patient had similar symptoms 4 days ago which resolved. The patient has not had any fever or chills, syncope or presyncope. The patient denies any prior myocardial infarction. history of brain aneurysm and history of asthma. REVIEW OF SYSTEMS: Review of systems was negative other than what is mentioned in the history of present illness. PAST MEDICAL HISTORY: As mentioned above. FAMILY HISTORY: Noncontributory. SOCIAL HISTORY: Denies smoking, drinking alcohol, or using any drugs. PHYSICAL EXAMINATION: VITAL SIGNS: Show blood pressure of 232/140, pulse is 85, respirations 18, and temperature 98. HEAD AND NECK: Showed no JVD. LUNGS: Clear. CARDIOVASCULAR: Regular S1 and S2 with no gallop or murmur. ABDOMEN: Soft. EXTREMITIES: No pitting edema. LABORATORY AND DIAGNOSTIC DATA: Her labs show white count of 20,000, hemoglobin 17, hematocrit 51.5, platelet count of 220. Sodium 141, potassium 3.2, BUN of 8, creatinine 0.9, and glucose of 111. Urine toxicology screen is positive for opiates. ASSESSMENT AND PLAN: 1. Accelerated hypertension. Blood pressure in 220s. The patient is NPO. The patient is on Vasotec 2.5 mg p.r.n. Hydralazine is not available at this time. We will start the patient also on clonidine patch weekly. Add metoprolol 5 mg IV every 6 hours. The patient already on 0.1 mg every 8 hours. 2. Acute pancreatitis. The patient is NPO, on banana bag. Further evaluation by Dr. Alexandre. The patient on Levaquin, thiamine, morphine, as well as folic acid. 3. Obesity. Thank you very much for allowing me to participate in the care of this patient. Please do not hesitate to contact me for any questions regarding my evaluation. Sincerely, Filiberto Hawthorne M.D. DR: Ramos JOB#: [id number] CC:
[2020-06-24] MEDS: LORazepam Inj 2mg/ml 1ml IV PRN (18:54)
[2020-06-25] VITALS: BP 195/132
[2020-06-25] MEDS: LORazepam Inj 2mg/ml 1ml IV PRN ×2 (01:21→12:17)
[2020-06-25] MEDS: Morphine Sulfate 2mg/ml Inj(IV/IM USE ONLY) IVP PRN ×3 (02:08→15:22)
[2020-06-25 04:00] VITALS: BP 170/103
[2020-06-25] MEDS: Albuterol ud Inhalation HHN PRN ×2 (05:43→13:39)
[2020-06-25 06:00] VITALS: BP 171/109
[2020-06-25] MEDS: Metoprolol Tartrate 5 MG in D5W 55 ML IVPB SCH ×2 (06:37→12:14)
[2020-06-25 07:27] LABS: BASOPHILS % (AUTO) 2.3 % (0.0-2.0); EOSINOPHILS % (AUTO) 0.6 % (0.0-3.0); HEMATOCRIT 47.8 % (37.0-47.0); HEMOGLOBIN 16.4 G/DL (12.0-16.0); LYMPHOCYTES % (AUTO) 13.9 % (20.0-45.0); MEAN CORPUSCULAR VOLUME 99 FL (80-99); NEUTROPHILS % (AUTO) 76.1 % (45.0-75.0); PLATELET COUNT 172 K/UL (150-450); RED BLOOD COUNT 4.83 M/UL (4.20-5.40); RED CELL DISTRIBUTION WIDTH 12.2 % (11.6-14.8); WHITE BLOOD COUNT 15.9 K/UL (4.8-10.8)
[2020-06-25 07:40] LABS: ALBUMIN 2.7 G/DL (3.4-5.0); ALBUMIN/GLOBULIN RATIO 0.8 (1.0-2.7); ALKALINE PHOSPHATASE 49 U/L (46-116); AMYLASE 142 U/L (25-115); ANION GAP 9 mmol/L (5-15); ASPARTATE AMINO TRANSFERASE 18 U/L (15-37); BILIRUBIN,TOTAL 0.7 MG/DL (0.2-1.0); BLOOD UREA NITROGEN 6 mg/dL (7-18); CALCIUM 8.2 MG/DL (8.5-10.1); CARBON DIOXIDE 26 MMOL/L (21-32); CHLORIDE 99 MMOL/L (98-107); CHOLESTEROL 189 MG/DL (< 200); CREATININE 0.7 MG/DL (0.55-1.30); HDL CHOLESTEROL 46 MG/DL (40-60); POTASSIUM 3.3 MMOL/L (3.5-5.1); SODIUM 134 MMOL/L (136-145); TRIGLYCERIDES 89 MG/DL (30-150)
[2020-06-25 08:00] VITALS: BP 145/84
--- NOTE | 2020-06-25 08:45 | History and Physical Report ---
DATE OF ADMISSION: 06/23/2020 HISTORY OF PRESENT ILLNESS: This is a 39-year-old female who came to the emergency room for alcohol abuse, DTs, agitation, and dehydration. PAST MEDICAL HISTORY: Significant for alcohol abuse. The patient is taking albuterol inhaler also. The patient lives at home. CURRENT MEDICATIONS: She is taking fluticasone, cough syrup, and albuterol. PHYSICAL EXAMINATION: GENERAL: This is a young female, currently in the bed, still having nausea, vomiting, and shakes. VITAL SIGNS: Blood pressure is high at 190/96, pulse 80, respirations 20, temperature 98.1. HEENT: Eyes are open. NECK: Supple. CHEST: Bilaterally decreased breath sounds. CARDIOVASCULAR: Regular rhythm, tachycardia. ABDOMEN: Soft. Mild tenderness. EXTREMITIES: No edema. GENITOURINARY: Deferred. LABORATORY AND DIAGNOSTIC DATA: White counts are 20,000, hemoglobin 17, hematocrit 51, platelets are 220. Chemistry panel, sodium 141, potassium 3.6, BUN 8, creatinine 0.9, glucose 111, lipase . Imaging, ultrasound of the abdomen showing common bile duct, no evidence of obstruction. MRCP considered. CT of the abdomen, pancreatitis, 1.4 cm hypodense lesion cystic neoplasm versus IPMN. MRCP can be utilized. Mild dilation of proximal common bile duct. Intrauterine device, which appeared slightly in position, . ASSESSMENT: 1. Acute pancreatitis. 2. UTI. PLAN: We will admit on the medical floor. We will start her on IV antibiotic albuterol inhaler, clonidine p.r.n., and clonidine patch since the patient cannot tolerate any food. Chuck Gutierres M.D. DR: THERESE JOB#: [id number] CC:
[2020-06-25 09:21] LABS: ALANINE AMINOTRANSFERASE 25 U/L (12-78)
[2020-06-25] MEDS: Folic Acid 1 MG, Magnesium Sulfate 2,000 MG, Multivitamin - 12 Injection 10 ML in Sodiu... IV SCH (09:24)
[2020-06-25] MEDS: Thiamine HCl 100 MG in D5W 55 ML IVPB SCH (09:25)
[2020-06-25] MEDS ORDERED: LABETALOL HCL200 MG ORAL (10:02)
[2020-06-25] MEDS ORDERED: PREDNISONE10 MG ORAL (10:02)
[2020-06-25] MEDS ORDERED: ARTIFICIAL TEAR15 ML BOTH EYES (10:04)
--- NOTE | 2020-06-25 10:52 | General Progress Note ---
Subjective Date patient seen: Jun 25, 2020 Time patient seen: 10:00 Constitutional: Reports: no symptoms HEENT: Reports: no symptoms Cardiovascular: Reports: no symptoms Respiratory: Reports: no symptoms Gastrointestinal/Abdominal: Reports: abdomen distended, nausea, poor fluid intake Genitourinary: Reports: no symptoms Neurologic/Psychiatric: Reports: no symptoms Endocrine: Reports: no symptoms Hematologic/Lymphatic: Reports: no symptoms Allergies: Coded Allergies: No Known Allergies (Unverified , 03/24/19) All Systems: reviewed and negative except above Objective Last 24 Hour Vital Signs Date Time Temp Pulse Resp B/P (MAP) Pulse Ox O2 Delivery O2 Flow Rate FiO2 06/25/20 09:00 Room Air 06/25/20 08:00 98.6 92 20 145/84 (104) 99 06/25/20 06:39 171/109 06/25/20 06:37 103 171/109 06/25/20 06:00 103 171/109 (129) 06/25/20 05:44 103 18 100 Room Air 21 97 18 95 06/25/20 04:00 98.6 94 20 170/103 (125) 94 06/25/20 04:00 98 06/25/20 01:51 94 20 179/106 94 06/25/20 01:21 96 22 188/118 94 06/25/20 00:00 99.6 102 21 195/132 (153) 94 06/25/20 00:00 109 06/24/20 23:40 99 195/132 06/24/20 22:21 96 16 100 Room Air 21 99 18 95 06/24/20 21:09 197/132 06/24/20 21:00 Room Air 06/24/20 20:00 95 06/24/20 20:00 99.5 98 21 190/129 (149) 94 06/24/20 19:24 98 21 230/137 96 06/24/20 18:54 98 21 230/137 96 06/24/20 17:32 98 230/137 06/24/20 16:00 98 06/24/20 16:00 98.7 92 21 230/137 (168) 96 06/24/20 13:45 233/140 06/24/20 12:28 242/120 06/24/20 12:26 85 16 98 Room Air 21 83 17 98 06/24/20 12:00 98.0 90 19 242/120 (160) 93 06/24/20 12:00 90 06/24/20 11:00 94 Intake and Output 06/24/20 06/25/20 19:00 07:00 Intake Total 675 ml Output Total 175 ml Balance 500 ml Intake IV Total 675 ml Output Emesis 175 ml # Voids 2 2 Laboratory Tests 06/25/20 06:10: White Blood Count 15.9H, Red Blood Count 4.83, Hemoglobin 16.4H, Hematocrit 47.8H, Mean Corpuscular Volume 99, Mean Corpuscular Hemoglobin 33.9H, Mean Corpuscular Hemoglobin Concent 34.3, Red Cell Distribution Width 12.2, Platelet Count 172, Mean Platelet Volume 10.1, Neutrophils (%) (Auto) 76.1H, Lymphocytes (%) (Auto) 13.9L, Monocytes (%) (Auto) 7.0, Eosinophils (%) (Auto) 0.6, Basophils (%) (Auto) 2.3H, Sodium Level 134L, Potassium Level 3.3L, Chloride Level 99, Carbon Dioxide Level 26, Anion Gap 9, Blood Urea Nitrogen 6L, Creatinine 0.7, Estimat Glomerular Filtration Rate > 60, Glucose Level 93, Calcium Level 8.2L, Total Bilirubin 0.7, Aspartate Amino Transf (AST/SGOT) 18, Alanine Aminotransferase (ALT/SGPT) 25, Alkaline Phosphatase 49, Troponin I 0.000, Total Protein 6.1L, Albumin 2.7L, Globulin 3.4, Albumin/Globulin Ratio 0.8L, Triglycerides Level 89, Cholesterol Level 189, LDL Cholesterol 127H, HDL Cholesterol 46, Cholesterol/HDL Ratio 4.1, Amylase Level 142H, Lipase 481H Height (Feet): 5 Height (Inches): 4.00 Weight (Pounds): 240 General Appearance: alert EENT: PERRL/EOMI Neck: supple Cardiovascular: regular rhythm Respiratory/Chest: lungs clear Abdomen: tender, hepatomegaly Extremities: non-tender Assessment/Plan Status Narrative still co pain in abdomen Assessment/Plan: ac pancreatitis etoh abused cirrohis obasity clear liquid diet cont abx gi consult rpt lipase dw charge nurse Jarret Gutierres MD Jun 25, 2020 10:52
--- NOTE | 2020-06-25 11:35 | General Progress Note ---
Subjective ROS Limited/Unobtainable: Yes Allergies: Coded Allergies: No Known Allergies (Unverified , 03/24/19) Objective Last 24 Hour Vital Signs Date Time Temp Pulse Resp B/P (MAP) Pulse Ox O2 Delivery O2 Flow Rate FiO2 06/25/20 09:00 Room Air 06/25/20 08:00 98.6 92 20 145/84 (104) 99 06/25/20 06:39 171/109 06/25/20 06:37 103 171/109 06/25/20 06:00 103 171/109 (129) 06/25/20 05:44 103 18 100 Room Air 21 97 18 95 06/25/20 04:00 98.6 94 20 170/103 (125) 94 06/25/20 04:00 98 06/25/20 01:51 94 20 179/106 94 06/25/20 01:21 96 22 188/118 94 06/25/20 00:00 99.6 102 21 195/132 (153) 94 06/25/20 00:00 109 06/24/20 23:40 99 195/132 06/24/20 22:21 96 16 100 Room Air 21 99 18 95 06/24/20 21:09 197/132 06/24/20 21:00 Room Air 06/24/20 20:00 95 06/24/20 20:00 99.5 98 21 190/129 (149) 94 06/24/20 19:24 98 21 230/137 96 06/24/20 18:54 98 21 230/137 96 06/24/20 17:32 98 230/137 06/24/20 16:00 98 06/24/20 16:00 98.7 92 21 230/137 (168) 96 06/24/20 13:45 233/140 06/24/20 12:28 242/120 06/24/20 12:26 85 16 98 Room Air 21 83 17 98 06/24/20 12:00 98.0 90 19 242/120 (160) 93 06/24/20 12:00 90 Intake and Output 06/24/20 06/25/20 19:00 07:00 Intake Total 675 ml Output Total 175 ml Balance 500 ml Intake IV Total 675 ml Output Emesis 175 ml # Voids 2 2 Laboratory Tests 06/25/20 06:10: White Blood Count 15.9H, Red Blood Count 4.83, Hemoglobin 16.4H, Hematocrit 47.8H, Mean Corpuscular Volume 99, Mean Corpuscular Hemoglobin 33.9H, Mean Corpuscular Hemoglobin Concent 34.3, Red Cell Distribution Width 12.2, Platelet Count 172, Mean Platelet Volume 10.1, Neutrophils (%) (Auto) 76.1H, Lymphocytes (%) (Auto) 13.9L, Monocytes (%) (Auto) 7.0, Eosinophils (%) (Auto) 0.6, Basophil s (%) (Auto) 2.3H, Sodium Level 134L, Potassium Level 3.3L, Chloride Level 99, Carbon Dioxide Level 26, Anion Gap 9, Blood Urea Nitrogen 6L, Creatinine 0.7, Estimat Glomerular Filtration Rate > 60, Glucose Level 93, Calcium Level 8.2L, Total Bilirubin 0.7, Aspartate Amino Transf (AST/SGOT) 18, Alanine Aminotransferase (ALT/SGPT) 25, Alkaline Phosphatase 49, Troponin I 0.000, Total Protein 6.1L, Albumin 2.7L, Globulin 3.4, Albumin/Globulin Ratio 0.8L, Triglycerides Level 89, Cholesterol Level 189, LDL Cholesterol 127H, HDL Cholesterol 46, Cholesterol/HDL Ratio 4.1, Amylase Level 142H, Lipase 481H Height (Feet): 5 Height (Inches): 4.00 Weight (Pounds): 240 General Appearance: alert EENT: PERRL/EOMI Neck: supple Cardiovascular: normal rate Respiratory/Chest: lungs clear Abdomen: decreased bowel sounds, tender Extremities: non-tender Assessment/Plan Problem List: (1) Pancreatitis ICD Codes: K85.90 - Acute pancreatitis without necrosis or infection, unspecified SNOMED: 49120426 (2) ETOH abuse ICD Codes: F10.10 - Alcohol abuse, uncomplicated SNOMED: 09809384 (3) Hypertension ICD Codes: I10 - Essential (primary) hypertension SNOMED: 16248143 (4) Abdominal pain ICD Codes: R10.9 - Unspecified abdominal pain SNOMED: 55420805 (5) Diverticulosis ICD Codes: K57.90 - Diverticulosis of intestine, part unspecified, without perforation or abscess without bleeding SNOMED: 003972872 (6) Fatty liver ICD Codes: K76.0 - Fatty (change of) liver, not elsewhere classified SNOMED: 893289887 (7) Brain aneurysm ICD Codes: I67.1 - Cerebral aneurysm, nonruptured SNOMED: 328595251, 200415253 Assessment/Plan: clears IVF 150 banana bag pain control repeat labs Paco Alexandre MD Jun 25, 2020 11:35
[2020-06-25 12:00] VITALS: BP 171/97
[2020-06-25 14:08] VITALS: BP 171/95
--- NOTE | 2020-06-25 15:18 | Cardiac Electrophysiology PN ---
Assessment/Plan Assessment/Plan 1. Accelerated hypertension. Blood pressure was in 220s. The patient is NPO. The patient is on Vasotec 2.5 mg p.r.n. Hydralazine is not available at this time. Continue clonidine patch weekly and metoprolol 5 mg IV every 6 hours. 2. Acute pancreatitis. The patient is NPO, on banana bag. Further evaluation by Dr. Alexandre. The patient on Levaquin, thiamine, morphine, as well as folic acid. 3. Obesity. Subjective Subjective Still has abdominal pain. No events. Objective Last 24 Hour Vital Signs Date Time Temp Pulse Resp B/P (MAP) Pulse Ox O2 Delivery O2 Flow Rate FiO2 06/25/20 14:08 171/95 06/25/20 13:39 102 18 99 Room Air 21 96 18 100 06/25/20 12:47 101 20 171/95 99 06/25/20 12:17 101 20 171/95 99 06/25/20 12:14 101 171/97 06/25/20 12:00 94 06/25/20 12:00 97.2 101 21 171/97 (121) 99 06/25/20 09:00 Room Air 06/25/20 08:00 98.6 92 20 145/84 (104) 99 06/25/20 08:00 97 06/25/20 06:39 171/109 06/25/20 06:37 103 171/109 06/25/20 06:00 103 171/109 (129) 06/25/20 05:44 103 18 100 Room Air 21 97 18 95 06/25/20 04:00 98.6 94 20 170/103 (125) 94 06/25/20 04:00 98 06/25/20 01:51 94 20 179/106 94 06/25/20 01:21 96 22 188/118 94 06/25/20 00:00 99.6 102 21 195/132 (153) 94 06/25/20 00:00 109 06/24/20 23:40 99 195/132 06/24/20 22:21 96 16 100 Room Air 21 99 18 95 06/24/20 21:09 197/132 06/24/20 21:00 Room Air 06/24/20 20:00 95 06/24/20 20:00 99.5 98 21 190/129 (149) 94 06/24/20 19:24 98 21 230/137 96 06/24/20 18:54 98 21 230/137 96 06/24/20 17:32 98 230/137 06/24/20 16:00 98 06/24/20 16:00 98.7 92 21 230/137 (168) 96 Intake and Output 06/24/20 06/25/20 19:00 07:00 Intake Total 675 ml Output Total 175 ml Balance 500 ml Intake IV Total 675 ml Output Emesis 175 ml # Voids 2 2 Laboratory Tests Test 06/25/20 06:10 White Blood Count 15.9 K/UL (4.8-10.8) H Red Blood Count 4.83 M/UL (4.20-5.40) Hemoglobin 16.4 G/DL (12.0-16.0) H Hematocrit 47.8 % (37.0-47.0) H Mean Corpuscular Volume 99 FL (80-99) Mean Corpuscular Hemoglobin 33.9 PG (27.0-31.0) H Mean Corpuscular Hemoglobin Concent 34.3 G/DL (32.0-36.0) Red Cell Distribution Width 12.2 % (11.6-14.8) Platelet Count 172 K/UL (150-450) Mean Platelet Volume 10.1 FL (6.5-10.1) Neutrophils (%) (Auto) 76.1 % (45.0-75.0) H Lymphocytes (%) (Auto) 13.9 % (20.0-45.0) L Monocytes (%) (Auto) 7.0 % (1.0-10.0) Eosinophils (%) (Auto) 0.6 % (0.0-3.0) Basophils (%) (Auto) 2.3 % (0.0-2.0) H Sodium Level 134 MMOL/L (136-145) L Potassium Level 3.3 MMOL/L (3.5-5.1) L Chloride Level 99 MMOL/L (98-107) Carbon Dioxide Level 26 MMOL/L (21-32) Anion Gap 9 mmol/L (5-15) Blood Urea Nitrogen 6 mg/dL (7-18) L Creatinine 0.7 MG/DL (0.55-1.30) Estimat Glomerular Filtration Rate > 60 mL/min (>60) Glucose Level 93 MG/DL (74-106) Calcium Level 8.2 MG/DL (8.5-10.1) L Total Bilirubin 0.7 MG/DL (0.2-1.0) Aspartate Amino Transf (AST/SGOT) 18 U/L (15-37) Alanine Aminotransferase (ALT/SGPT) 25 U/L (12-78) Alkaline Phosphatase 49 U/L (46-116) Troponin I 0.000 ng/mL (0.000-0.056) Total Protein 6.1 G/DL (6.4-8.2) L Albumin 2.7 G/DL (3.4-5.0) L Globulin 3.4 g/dL Albumin/Globulin Ratio 0.8 (1.0-2.7) L Triglycerides Level 89 MG/DL (30-150) Cholesterol Level 189 MG/DL (< 200) LDL Cholesterol 127 mg/dL (<100) H HDL Cholesterol 46 MG/DL (40-60) Cholesterol/HDL Ratio 4.1 (3.3-4.4) Amylase Level 142 U/L (25-115) H Lipase 481 U/L (73-393) H Objective HEAD AND NECK: No JVD. LUNGS: Clear. CARDIOVASCULAR: Regular S1 and S2 with no gallop or murmur. ABDOMEN: Soft. EXTREMITIES: No pitting edema. Filiberto Hawthrone MD Jun 25, 2020 15:18
[2020-06-25] MEDS ORDERED: Tubing IV Secondary IV ONE (16:29)
--- NOTE | 2020-06-25 17:32 | Cardiology Report ---
APPROVED REPORT EKG Measurement Heart [id number] <Conclusion> Normal sinus rhythm Cannot rule out Anterior infarct, age undetermined Abnormal ECG
--- NOTE | 2020-06-25 23:22 | Initial Psychiatric Evaluation ---
Psychiatry Consultation Psychiatry Consultation Chief Complaint: Abdominal Pain History of Present Illness: 39-year-old female who came to the emergency room for alcohol abuse, DTs, agitation, and dehydration. PAST MEDICAL HISTORY: Significant for alcohol abuse. The patient is taking albuterol inhaler also. The patient lives at home. CURRENT MEDICATIONS: She is taking fluticasone, cough syrup, and albuterol. Allergies: Coded Allergies: No Known Allergies (Unverified , 03/24/19) Medication History Scheduled Labetalol Hcl* (Normodyne*), 200 MG ORAL EVERY 8 HOURS, (Reported) Prednisone* (Prednisone*), 10 MG ORAL DAILY, (Reported) Scheduled PRN Albuterol Sulfate* (Albuterol Sulfate Mdi*), 2 PUFF INH Q4H PRN for cough/wheezing Miscellaneous Medications Dextran 70/Hypromellose (Artificial Tears Eye Drops*), 1 DROP BOTH EYES, (Reported) Discontinued Medications Amoxicillin/Potassium Clav 875-125* (Augmentin 875-125 Tablet*), 1 TAB ORAL TWICE A DAY Discontinued Reason: Pt stopped taking med Azithromycin* (Zithromax*), 250 MG ORAL DAILY Discontinued Reason: Pt stopped taking med Beclomethasone Dipropionate 40MCG Oral Inh (Qvar 40*), 2 PUFFS INH TWICE A DAY, (Reported) Discontinued Reason: Pt stopped taking med Fluticasone/Vilanterol (Breo Ellipta 200-25 Mcg INH), 1 EACH IH BID Discontinued Reason: Pt stopped taking med Guaifenesin* (Guaifenesin*), 15 ML ORAL Q6H PRN for For Cough Discontinued Reason: Pt stopped taking med Labetalol Hcl* (Normodyne*), 100 MG ORAL EVERY 12 HOURS, (Reported) Discontinued Reason: Prescription changed Objective Data Height (Feet): 5 Height (Inches): 4.00 Weight (Pounds): 240 Assessment/Plan Problem List: (1) ETOH abuse ICD Codes: F10.10 - Alcohol abuse, uncomplicated SNOMED: 74076649 Status: stable Hardik Devries MD Jun 25, 2020 23:22
--- NOTE | 2020-06-25 23:24 | Psych Consult Progress Note ---
Psychiatry Progress Note Psychiatry Progress Note Neurological/Psychiatric: Reports: no symptoms, anxiety, depressed, emotional problems Allergies: Coded Allergies: No Known Allergies (Unverified , 03/24/19) Objective Data Height (Feet): 5 Height (Inches): 4.00 Weight (Pounds): 240 General Appearance: WD/WN, no apparent distress, alert Behavior Mannerisms: good eye contact Mental Status Exam - Mood: no abnormalities Speech: clear Mental Status Exam - Thought P: goal-directed Mental Status Exam - Suicidal: not present Assessment/Plan Problem List: (1) ETOH abuse Status: stable Hardik Devries MD Jun 25, 2020 23:24
--- NOTE | 2020-06-26 09:20 | Discharge Summary ---
Discharge Summary Discharge Summary _ DATE OF ADMISSION: 06/23/2020 DATE OF DISCHARGE: 06/25/2020 DISCHARGED BY: Dr. Gutierres REASON FOR ADMISSION: 40 years old female with past medical history of hypertension, asthma, history of brain aneurysm in 2011, presented with epigastric pain , started about 4 hours prior to presentation. Patient reported severe epigastric pain associated with nausea and nonbloody nonbilious vomiting. Symptoms were not associated with meals. She denied chest pain or shortness of breath. No fever or chills. No dysuria or hematuria. No constipation or diarrhea. Patient reported heavy alcohol drinking recently with underlying history of alcohol abuse. Upon evaluation patient was slightly tachycardic with heart rate 108; blood pressure was significantly elevated 260/163. Laboratory work-up revealed leukocytosis WBC 20.1, hemoglobin 17.1 ,hematocrit 51.5 ,platelet count 220. Stable electrolytes. Glucose 111. AST 28 ,ALT 38, lipase 1303 Urinalysis revealed +1 protein , no evidence of UTI.. Urine toxicology screen was positive for opiates. CT scan of the abdomen and pelvis revealed pancreatitis s and dilated common bile duct. No stone or mass was identified. In emergency department patient received antihypertensive , analgesic and GI coctail with Pepcid , Mylanta , and viscous lidocaine. Patient also received empiric antibiotic. CONSULTANTS: control and recovery special tactics Dr. Oconnor GI specialist Dr. Alexandre psychiatrist [facility] COURSE: Patient admitted to medical surgical floor. Patient started on the IV fluids /banana bag. Patient initially was kept n.p.o. and then started on clear liquid diet advanced as tolerated. GI prophylaxis provided. Antihypertensive provided as per control and recovery special tactics recommendation. Blood pressure was improving. Pulse oximetry remained stable on room air Abdominal ultrasound revealed hepatic steatosis. Dilated common bile duct measuring 9 mm. No stones. Pancreas was unremarkable. LFT remained stable. Lipase trended down from initial 1303 down to 481. Potassium was replaced. Pain management was addressed. Supportive care provided. Antiemetic were on board as needed. Patient was counseled on abstinence from ETOH. Leukocytosis trended down. No fever. No clinical evidence of infection. Leukocytosis was most likely reactive. Patient clinically stabilized and was ready for discharge home. FINAL DIAGNOSES: Acute pancreatitis ETOH abuse Hypertension with initial hypertensive urgency Fatty liver Brain aneurysm Obesity DISCHARGE MEDICATIONS: List of medication provided to patient.. DISCHARGE INSTRUCTIONS: Patient was discharged home. Follow-up with a primary care provider in 1 to 2 weeks. I have been assigned to dictate discharge summary for this account. I was not involved in the patient's management. Halley Brink NP Jun 26, 2020 09:20
--- NOTE | 2020-06-26 13:33 | Cardiology Report ---
APPROVED REPORT EXAM: Two-dimensional and M-mode echocardiogram with Doppler and color Doppler. INDICATION Chest Pain M-Mode DIMENSIONS IVSd1.2 (0.7-1.1cm)Left Atrium (MM)3.6 (1.6-4.0cm) LVDd4.5 (3.5-5.6cm)Aortic Root2.8 (2.0-3.7cm) PWd1.2 (0.7-1.1cm)Aortic Cusp Exc.2.0 (1.5-2.0cm) IVSs2.1 cmEPSS0.5 (>1.0cm) LVDs2.6 (2.5-4.0cm) PWs1.8 cm Other Information Technically limited study due to poor acoustic windows and body habitus. <Conclusion> Normal left ventricular chamber size, systolic function and wall motion to extent visualized. Left ventricular ejection fraction estimated to be 65 %. Study quality precludes accurate assessment of regional wall motion. Mild left ventricular hypertrophy. No evidence of pericardial effusion All other cardiac chamber sizes are within normal limits. Focal aortic valve sclerosis with adequate cusp excursion. Thickened mitral valve leaflets with normal excursion. Mitral annulus and aortic root calcification. Pulmonic valve not well visualized. Normal tricuspid valve structure. IVC at normal size with physiologic collapse. A color flow and spectral Doppler study was performed and revealed: No aortic regurgitation. Trace mitral regurgitation. Mitral diastolic velocities suggest reduced left ventricular relaxation c/w mild LV diastolic dysfunction (Grade I ). Trace tricuspid regurgitation. Tricuspid systolic velocities suggests peak right ventricular systolic pressure of 13 mmHg. No pulmonic regurgitation present.
== END 2020-06-25 16:30 | disposition home or self-care (01) | DRG 282 ==
LOC: EDBD 20:37 → EMR 20:58 → EDBEDREQ 23:01 → 4E 23:07 → EDBEDREQ 06-24 00:33 → 2E 06-24 10:30
DX: K85.90 Acute pancreatitis without necrosis or infection, unspecified (principal); K83.8 Other specified diseases of biliary tract; I10 Essential (primary) hypertension; F10.10 Alcohol abuse, uncomplicated; E66.9 Obesity, unspecified; Z68.41 Body mass index [BMI] 40.0-44.9, adult; N39.0 Urinary tract infection, site not specified; I16.0 Hypertensive urgency; K76.0 Fatty (change of) liver, not elsewhere classified; Z86.69 Personal history of other diseases of the nervous system and sense organs; K74.60 Unspecified cirrhosis of liver
CPT/HCPCS: 36415; 74177; 76700; 80053; 80061; 80307; 81003; 81025; 82150; 83690; 84484; 85007; 85025; 93005; 93306; 94640; 96361; 96365; 96375; 96376; 99285; J2405; J7030

== ENCOUNTER 2020-07-01 13:24 | Inpatient (IN) | payer MEDICAID ==
[~2020-07-01] VITALS: Ht 160 cm; Wt 101.1 kg
[~2020-07-01 13:24] MED LIST changes: +ARTIFICIAL TEAR15 ML BOTH EYES; +LABETALOL HCL200 MG ORAL; +PREDNISONE10 MG ORAL
[2020-07-01] MEDS ORDERED: Labetalol 5mg/ml 20ml vial IV ONE ×3 (13:30→20:45)
[2020-07-01] MEDS ORDERED: Morphine Sulfate 4mg/ml Inj (IV USE ONLY) IVP ONE ×3 (13:30→19:00)
--- NOTE | 2020-07-01 13:32 | NUR ---
ED Nurse Note: pt taken to CT via ivette
--- NOTE | 2020-07-01 13:38 | NUR ---
ED Nurse Note: Pt was brought in by ambulance from home d/t abdominal pain accompanied by nausea/vomiting that got worsen today. Pt is AOx4, crying and restless per pt, she was been seen and treated last week with the dx of pancreatitis but symptoms got worsen recently. pt was placed on bed, hooked to secured entrance monitor, refused to be on a hosp gown; will continue to monitor.
[2020-07-01 13:40] VITALS: BP 249/164
[2020-07-01 13:44] LABS: BASOPHILS % (AUTO) 2.8 % (0.0-2.0); EOSINOPHILS % (AUTO) 0.4 % (0.0-3.0); HEMATOCRIT 39.1 % (37.0-47.0); HEMOGLOBIN 13.4 G/DL (12.0-16.0); LYMPHOCYTES % (AUTO) 13.2 % (20.0-45.0); MEAN CORPUSCULAR VOLUME 98 FL (80-99); MONOCYTES % (AUTO) 8.3 % (1.0-10.0); NEUTROPHILS % (AUTO) 75.3 % (45.0-75.0); PLATELET COUNT 261 K/UL (150-450); RED BLOOD COUNT 3.98 M/UL (4.20-5.40); RED CELL DISTRIBUTION WIDTH 12.1 % (11.6-14.8); WHITE BLOOD COUNT 16.1 K/UL (4.8-10.8)
[2020-07-01 14:01] LABS: INR 1.1 (0.9-1.1)
--- NOTE | 2020-07-01 14:04 | Diagnostic Imaging Report ---
Indications: Headache Technique: Spiral acquisitions obtained through the brain. Angled axial and coronal 5 x 5 mm slices were reconstructed. Total dose length product 1152 mGycm. CTDI vol(s) 53 mGy. Dose reduction achieved using automated exposure control Comparison: None. Findings: No acute intracranial hemorrhage or edema. No mass effect nor midline shift. Normal ferraro-white differentiation. Normal size ventricles and extra axial CSF spaces. Patient is status post left frontotemporal craniotomy. There is a supraclinoid aneurysm clip, at and just to the left of midline. Visualized orbits and sinuses are unremarkable. The mastoids are clear. Impression: Negative for acute intracranial bleed or mass effect Evidence of left convexity craniotomy and aneurysm clipping The CT scanner at [facility] is accredited by the [employer] and the scans are performed using protocols designed to limit radiation exposure to as low as reasonably achievable to attain images of sufficient resolution adequate for diagnostic evaluation.
--- NOTE | 2020-07-01 14:09 | NUR ---
ED Nurse Note: US tech at bedside.
[2020-07-01 14:14] LABS: ANION GAP 12 mmol/L (5-15); BLOOD UREA NITROGEN 11 mg/dL (7-18); CALCIUM 8.8 MG/DL (8.5-10.1); CARBON DIOXIDE 23 MMOL/L (21-32); CHLORIDE 103 MMOL/L (98-107); CREATININE 0.8 MG/DL (0.55-1.30); POTASSIUM 3.7 MMOL/L (3.5-5.1); SODIUM 137 MMOL/L (136-145)
[2020-07-01 14:25] LABS: ALANINE AMINOTRANSFERASE 53 U/L (12-78); ALBUMIN 2.9 G/DL (3.4-5.0); ALBUMIN/GLOBULIN RATIO 0.8 (1.0-2.7); ALKALINE PHOSPHATASE 47 U/L (46-116); ASPARTATE AMINO TRANSFERASE 31 U/L (15-37); BILIRUBIN,TOTAL 0.6 MG/DL (0.2-1.0); CREATINE KINASE 59 U/L (26-308)
--- NOTE | 2020-07-01 15:24 | Emergency Room Report ---
History of Present Illness General Chief Complaint: Abdominal Pain Present Illness HPI 40-year-old female with history of hypertension and pancreatitis who was recently hospitalized at [facility] here brought in by paramedics due to the onset of abdominal pain rating a 10 out of 10. Patient presents with blood pressure of 230/120. Denies any chest pain or shortness of breath. Complains of headache and dizziness. Has not taken medication for symptom relief. Reports that she did take her labetalol 200 mg this morning however has not taken medication for pain. Complains of few bouts of nonbloody emesis and feeling nauseated. Denies any diarrhea or constipation. Denies any blood in stool. Denies any fever and chills, urinary symptoms. Patient has history of alcohol abuse however reports that has not been drinking any alcohol within the past few days. Denies any tobacco smoke and drug use. Reports that she is curr ently on her menstruation. Denies . (Sonali Rodríguez) Allergies: Coded Allergies: No Known Allergies (Unverified , 03/24/19) COVID-19 Screening Contact w/high risk pt: No Experienced COVID-19 symptoms?: No COVID-19 Testing performed QA REVIEWER: No (Sonali Rodríguez) Patient History Past Medical History: see triage record Past Surgical History: none Pertinent Family History: none Last Menstrual Period: unk Now: No Immunizations: UTD Reviewed Nursing Documentation: PMH: Agreed; PSxH: Agreed (Sonali Rodríguez) Nursing Documentation-PMH Hx Hypertension: Yes Hx Asthma: Yes Hx Cancer: No Hx Gastrointestinal Problems: No Hx Neurological Problems: Yes - Anurysm 2011 (Sonali Rodríguez) Review of Systems All Other Systems: negative except mentioned in HPI (Sonali Rodríguez) Physical Exam Vital Signs Date Time Temp Pulse Resp B/P (MAP) Pulse Ox O2 Delivery O2 Flow Rate FiO2 07/01/20 13:18 92 18 249/164 (192) 100 Room Air Sp02 EP Interpretation: reviewed, abnormal - elevated BP General Appearance: alert, moderate distress Head: normocephalic, atraumatic Eyes: bilateral eye normal inspection, bilateral eye PERRL ENT: hearing grossly normal, normal pharynx, no angioedema, normal voice Neck: full range of motion, supple/symm/no masses Respiratory: chest non-tender, lungs clear, normal breath sounds, no rhonchi, no respiratory distress, no retraction, no accessory muscle use, no wheezing Cardiovascular #1: regular rate, rhythm, no edema, no gallop, no murmur Cardiovascular #2: 2+ carotid (R), 2+ carotid (L), 2+ radial (R), 2+ radial (L), 2+ dorsalis pedis (R), 2+ dorsalis pedis (L) Gastrointestinal: normal bowel sounds, no organomegaly, no bruit, non- distended, no guarding, no hernia, no pulsatile mass, no rebound, guarding - epigastric Rectal: deferred Genitourinary: no CVA tenderness Musculoskeletal: back normal, no calf tenderness Neurologic: alert, motor strength/tone normal, oriented x3, sensory intact, responsive, speech normal Skin: no rash Lymphatic: no adenopathy (Sonali Rodríguez) Procedures Critical Care Time Critical Care Time Total critical care time: Approximately 45 minutes Due to a high probability of clinically significant, life threatening deterioration, the patient required the highest level of preparedness to intervene emergently and I personally spent this critical care time directly and personally managing the patient. This critical care time included obtaining a history, examining the patient, pulse oximetry, ordering and reviewing studies, ordering treatments, evaluating response to treatment and updating management plan as needed, frequent reassessment and discussion with other providers as well as arranging for ultimate disposition. This critical to care time was performed to assess and manage the high probability of life-threatening deterioration that could result in multiorgan failure. This critical care time is separate from the separately billable procedures and treating other patients. (Kamari Terry MD) Medical Decision Making PA Attestation All diagnoses and treatment plans were reviewed and discussed with my supervising physician Dr. Terry (Sonali Rodríguez) PA Attestation I participate in the care of this patient along with REINIER Peterson Briefly, this a 40-year-old female recently hospitalized for pancreatitis and hypertension presenting with abdominal pain. Lipase found moderately elevated i n the 500s. Blood pressures have been elevated throughout her ED stay with systolic pressures greater than 200. She reported mild headache but CT scan was unremarkable aside from evidence of prior aneurysmal clipping. Patient given multiple rounds of IV antihypertensive medications with only slight improvement. She will require medical admission for hypertensive urgency and pancreatitis. Will readmit to prior admitting physician, Dr. Gutierres. (Kamari Terry MD) Diagnostic Impression: Primary Impression: Hypertensive urgency Additional Impression: Pancreatitis ER Course 40-year-old female with history of hypertension and pancreatitis who was recently hospitalized at [facility] here brought in by paramedics due to the onset of abdominal pain rating a 10 out of 10. Patient presents with blood pressure of 230/120. Denies any chest pain or shortness of breath. Complains of headache and dizziness. Has not taken medication for symptom relief. Reports that she did take her labetalol 200 mg this morning however has not taken medication for pain. Complains of few bouts of nonbloody emesis and feeling nauseated. Denies any diarrhea or constipation. Denies any blood in stool. Denies any fever and chills, urinary symptoms. Patient has history of alcohol abuse however reports that has not been drinking any alcohol within the past few days. Denies any tobacco smoke and drug use. Reports that she is currently on her menstruation. Denies . Ddx considered but are not limited to: appendicitis, cholecystis, gastritis, gastroenteritis, UTI, pyelonephritis, SBO, diverticulitis, hypertension urgency, hypertensive emergency Vital signs: are WNL, pt. is afebrile H&PE are most consistent with: Hypertension urgency, pancreatitis ORDERS:abdominal pain set, EKG, abdominal US, head CT no contrast ED INTERVENTIONS: Morphine, NS bolus, Zofran, labetalol, clonidine Patient was admitted with diagnosis of hypertensive urgency, pancreatitis to Dr. Chowdary under supervision of Dr.: Terry pt stable at time of admission (Sonali Rodríguez) EKG Diagnostic Results Rate: normal Rhythm: NSR ST Segments: no acute changes Other Impression No acute ST changes ASA given to the pt in ED: No (Sonali Rodríguez) CT/MRI/US Diagnostic Results CT/MRI/US Diagnostic Results #1: Imaging Test Ordered: abdominal US Impression Pancreatitis CT/MRI/US Diagnostic Results #2: Imaging Test Ordered: Head CT no contrast Impression No intracranial bleed, no skull fracture, no other abnormalities (Sonali Rodríguez) Last Vital Signs Date Time Temp Pulse Resp B/P (MAP) Pulse Ox O2 Delivery O2 Flow Rate FiO2 07/01/20 14:00 76 218/107 07/01/20 13:40 18 100 Room Air (Sonali Rodríguez) Disposition: ADMITTED INPATIENT Condition: Serious Sonali Rodríguez Jul 01, 2020 15:24 Kamari Terry MD Jul 01, 2020 16:41
[2020-07-01 15:46] LABS: APPEARANCE,URINE CLOUDY; BILIRUBIN, URINE NEGATIVE (NEGATIVE); GLUCOSE, URINE (UA) NEGATIVE (NEGATIVE); KETONES,URINE 3+ (NEGATIVE); LEUKOCYTE ESTERASE ,URINE 3+ (NEGATIVE); NITRITE,URINE POSITIVE (NEGATIVE); PH,URINE 7 (4.5-8.0); PROTEIN,URINE 3+ (NEGATIVE); UROBILINOGEN,URINE 1 MG/DL (0.0-1.0)
--- NOTE | 2020-07-01 15:50 | NUR ---
ED Nurse Latest BP: 236/143 ERPA aware. Labetalol 20mg given IV slow. Will continue to monitor pt.
[2020-07-01 15:57] LABS: COLOR,URINE RED
[2020-07-01] MEDS ORDERED: cefTRIAXone 1 GM in NS 55 ML IVPB ONE (16:15)
[2020-07-01 16:55] VITALS: BP 142/123
--- NOTE | 2020-07-01 16:57 | NUR ---
ED Nurse Note: Latest BP: 142/123 ERPA aware.
--- NOTE | 2020-07-01 18:45 | NUR ---
ED Nurse Note: Latest BP: 238/121 notified AKHILA
--- NOTE | 2020-07-01 18:50 | NUR ---
ED Nurse Note: Pt still complains of midepigastric pain; notified ERPA; comfort measures provided.
--- NOTE | 2020-07-01 19:11 | NUR ---
ED Nurse Note: report given to NOAH Esquivel.
--- NOTE | 2020-07-01 20:26 | NUR ---
ED Nurse Note: MRSA, VRE, CRE swabs collected.
--- NOTE | 2020-07-01 20:33 | NUR ---
ED Nurse Note: ER PA at bedside
[2020-07-01] MEDS ORDERED: LABETALOL HCL200 MG ORAL (20:43)
--- NOTE | 2020-07-01 21:12 | NUR ---
ED Nurse Note: Report given to NOAH Howell.
--- NOTE | 2020-07-01 21:25 | NUR ---
NURSE NOTES: Received report from NOAH Kramer. Patient transferred from E.R to room 210-1 via rney. Patient is awake, alert and oriented x 4. Oriented to room and telemetry unit. Place monitor and storage bin tender and shows Sinus rhythm with no chest pain reported. On room air, sating 97 %. Patient is on NPO, instructed and amenable. IV site is on right AC G-20 saline lock that is patent and intact. Safety measures are in place, bed in lowest and locked position, side rails up x 2. Call light button and bedside table within reach, instructed to call for any assistance needed. Will call MD for admission orders.
--- NOTE | 2020-07-01 21:35 | NUR ---
NURSE NOTES: Called Dr. Gutierres to get an admission orders. Awaiting for call back.
[2020-07-01 21:40] VITALS: BP 155/112
--- NOTE | 2020-07-01 21:54 | Diagnostic Imaging Report ---
Indication: Abdominal pain Technique: Marshall-scale and duplex images of the upper abdomen were obtained Comparison: none Findings: Gallbladder is unremarkable, without stones, wall thickening, nor pericholecystic fluid. Sonographic Dodson's sign is negative. Common bile duct measures 7 mm in diameter. No intrahepatic biliary ductal dilatation. Liver demonstrates diffusely increased echogenicity, consistent with diffuse hepatocellular disease, most likely fatty change. Portal vein and hepatic veins are patent. Pancreas demonstrate a 1.2 cm hypoechoic lesion at the pancreatic body tail junction. Spleen is unremarkable. Left kidney measures 11.2 cm in length. Right kidney measures 7.5 cm length. Both kidneys demonstrate normal echogenicity. There is no hydronephrosis. No focal abnormality . Non-aneurysmal abdominal aorta . Impression: 1.2 cm hypoechoic lesion in the pancreatic body tail junction. Recommend multiphasic contrast CT for further evaluation Negative for gallstones or dilated bile ducts Liver demonstrates diffusely increased echogenicity, consistent with diffuse hepatocellular disease, most likely fatty change.
--- NOTE | 2020-07-01 22:30 | NUR ---
NURSE NOTES: Called Dr. Gutierres again to follow up for the admission orders, at this time patient is complaining of abdominal pain, non-radiating, intermittently sharp pain scale of 6. Awaiting for call back.
[2020-07-02] VITALS: BP 177/77
[2020-07-02] MEDS: Morphine Sulfate 2mg/ml Inj(IV/IM USE ONLY) IVP PRN ×5 (01:29→20:54)
[2020-07-02 04:00] VITALS: BP 148/62
--- NOTE | 2020-07-02 06:55 | History & Physical ---
History of Present Illness General Reason for Hospitalization: Abdominal Pain Present Illness Allergies: Coded Allergies: No Known Allergies (Unverified , 03/24/19) COVID-19 Screening Contact w/high risk pt: No Experienced COVID-19 symptoms?: No Medication History Scheduled Labetalol Hcl* (Normodyne*), 200 MG ORAL EVERY 12 HOURS, (Reported) Scheduled PRN Albuterol Sulfate* (Albuterol Sulfate Mdi*), 2 PUFF INH Q4H PRN for cough/wheezing Discontinued Medications Amoxicillin/Potassium Clav 875-125* (Augmentin 875-125 Tablet*), 1 TAB ORAL TWICE A DAY Discontinued Reason: Pt stopped taking med Azithromycin* (Zithromax*), 250 MG ORAL DAILY Discontinued Reason: Pt stopped taking med Beclomethasone Dipropionate 40MCG Oral Inh (Qvar 40*), 2 PUFFS INH TWICE A DAY, (Reported) Discontinued Reason: Pt stopped taking med Dextran 70/Hypromellose (Artificial Tears Eye Drops*), 1 DROP BOTH EYES, (Reported) Discontinued Reason: MD discontinued med Fluticasone/Vilanterol (Breo Ellipta 200-25 Mcg INH), 1 EACH IH BID Discontinued Reason: Pt stopped taking med Guaifenesin* (Guaifenesin*), 15 ML ORAL Q6H PRN for For Cough Discontinued Reason: Pt stopped taking med Labetalol Hcl* (Normodyne*), 100 MG ORAL EVERY 12 HOURS, (Reported) Discontinued Reason: Prescription changed Labetalol Hcl* (Normodyne*), 200 MG ORAL EVERY 8 HOURS, (Reported) Discontinued Reason: Medication dose changed Prednisone* (Prednisone*), 10 MG ORAL DAILY, (Reported) Discontinued Reason: MD discontinued med Patient History Healthcare decision maker Resuscitation status Advanced Directive on File Review of Systems Review of Symptoms General ROS: no weight loss or fever Psychological ROS: no depression or mood changes, no memory loss Ophthalmic ROS: no visual changes or eye irritation ENT ROS: no nasal congestion, hearing loss, dizziness Allergy and Immunology ROS: no allergic symptoms or urticaria Hematological and Lymphatic ROS: no swollen glands, unusual bleeding or bruising Endocrine ROS: no polyuria, polydipsia, weight changes, temperature intolerance Respiratory ROS: no cough, shortness of breath, or wheezing Cardiovascular ROS: no chest pain or dyspnea on exertion Gastrointestinal ROS: denies abdominal pain, bright red blood in stool. Musculoskeletal ROS: no myalgias or arthralgias Neurological ROS: no TIA or stroke symptoms Dermatological ROS: no new or changing skin lesions, rashes or pruritis Physical Exam Physical Exam General appearance: alert, cooperative, no distress, appears stated age Head: Normocephalic, without obvious abnormality, atraumatic Eyes: conjunctivae/corneas clear. PERRL, EOM's intact. Fundi benign Throat: Lips, mucosa, and tongue normal. Teeth and gums normal Neck: supple, symmetrical, trachea midline, no adenopathy, thyroid: not enlarged, symmetric, no tenderness/mass/nodules, no carotid bruit and no JVD Lungs: clear to auscultation bilaterally Heart: regular rate and rhythm, S1, S2 normal, no murmur, click, rub or gallop Abdomen: soft, non-tender. Bowel sounds normal. No masses, no organomegaly Extremities: extremities normal, atraumatic, no cyanosis or edema Pulses: 2+ and symmetric Skin: Skin color, texture, turgor normal. No rashes or lesions Neurologic: Grossly normal Last 24 Hour Vital Signs Date Time Temp Pulse Resp B/P (MAP) Pulse Ox O2 Delivery O2 Flow Rate FiO2 07/02/20 04:00 73 07/02/20 04:00 99.1 73 20 148/62 (90) 98 07/02/20 01:35 177/77 07/02/20 00:00 77 07/02/20 00:00 99.5 70 20 177/77 (110) 100 07/01/20 21:55 Room Air 07/01/20 21:40 98.2 75 21 155/112 (126) 98 07/01/20 21:35 72 07/01/20 21:10 98.2 78 17 155/68 96 Room Air 07/01/20 20:39 71 189/99 07/01/20 18:55 238/121 07/01/20 16:55 84 18 142/123 100 Room Air 07/01/20 16:05 76 226/122 07/01/20 15:21 221/129 07/01/20 14:00 76 218/107 07/01/20 13:40 18 249/164 100 Room Air 07/01/20 13:40 92 18 Room Air 07/01/20 13:18 92 18 249/164 (192) 100 Room Air Intake and Output 07/01/20 07/02/20 18:59 06:59 Intake Total 400 ml Balance 400 ml Intake Oral 0 ml IV Total 400 ml Laboratory Tests Test 07/01/20 13:30 07/01/20 15:20 White Blood Count 16.1 K/UL (4.8-10.8) H Red Blood Count 3.98 M/UL (4.20-5.40) L Hemoglobin 13.4 G/DL (12.0-16.0) Hematocrit 39.1 % (37.0-47.0) Mean Corpuscular Volume 98 FL (80-99) Mean Corpuscular Hemoglobin 33.8 PG (27.0-31.0) H Mean Corpuscular Hemoglobin Concent 34.4 G/DL (32.0-36.0) Red Cell Distribution Width 12.1 % (11.6-14.8) Platelet Count 261 K/UL (150-450) Mean Platelet Volume 7.7 FL (6.5-10.1) Neutrophils (%) (Auto) 75.3 % (45.0-75.0) H Lymphocytes (%) (Auto) 13.2 % (20.0-45.0) L Monocytes (%) (Auto) 8.3 % (1.0-10.0) Eosinophils (%) (Auto) 0.4 % (0.0-3.0) Basophils (%) (Auto) 2.8 % (0.0-2.0) H Prothrombin Time 12.1 SEC (9.30-11.50) H Prothromb Time International Ratio 1.1 (0.9-1.1) Activated Partial Thromboplast Time 27 SEC (23-33) Sodium Level 137 MMOL/L (136-145) Potassium Level 3.7 MMOL/L (3.5-5.1) Chloride Level 103 MMOL/L (98-107) Carbon Dioxide Level 23 MMOL/L (21-32) Anion Gap 12 mmol/L (5-15) Blood Urea Nitrogen 11 mg/dL (7-18) Creatinine 0.8 MG/DL (0.55-1.30) Estimat Glomerular Filtration Rate > 60 mL/min (>60) Glucose Level 92 MG/DL (74-106) Calcium Level 8.8 MG/DL (8.5-10.1) Total Bilirubin 0.6 MG/DL (0.2-1.0) Aspartate Amino Transf (AST/SGOT) 31 U/L (15-37) Alanine Aminotransferase (ALT/SGPT) 53 U/L (12-78) Alkaline Phosphatase 47 U/L (46-116) Total Creatine Kinase 59 U/L (26-308) Troponin I 0.002 ng/mL (0.000-0.056) Pro-B-Type Natriuretic Peptide 1307 pg/mL (0-125) H Total Protein 6.4 G/DL (6.4-8.2) Albumin 2.9 G/DL (3.4-5.0) L Globulin 3.5 g/dL Albumin/Globulin Ratio 0.8 (1.0-2.7) L Lipase 504 U/L (73-393) H Serum Alcohol < 3 mg/dL Urine Color Red Urine Appearance Cloudy Urine pH 7 (4.5-8.0) Urine Specific [place] 1.010 (1.005-1.035) Urine Protein 3+ (NEGATIVE) H Urine Glucose (UA) Negative (NEGATIVE) Urine Ketones 3+ (NEGATIVE) H Urine Blood 5+ (NEGATIVE) H Urine Nitrite Positive (NEGATIVE) H Urine Bilirubin Negative (NEGATIVE) Urine Urobilinogen 1 MG/DL (0.0-1.0) H Urine Leukocyte Esterase 3+ (NEGATIVE) H Urine RBC Tntc /HPF (0 - 2) H Urine WBC 60-80 /HPF (0 - 2) H Urine Squamous Epithelial Cells Many /LPF (NONE/OCC) H Urine Bacteria Many /HPF (NONE) H Urine HCG, Qualitative Negative (NEGATIVE) Urine Opiates Screen Positive (NEGATIVE) H Urine Barbiturates Screen Negative (NEGATIVE) Phencyclidine (PCP) Screen Negative (NEGATIVE) Urine Amphetamines Screen Negative (NEGATIVE) Urine Benzodiazepines Screen Positive (NEGATIVE) H Urine Cocaine Screen Negative (NEGATIVE) Urine Marijuana (THC) Screen Negative (NEGATIVE) Microbiology Date/Time Source Procedure Growth Status 07/01/20 20:10 Rectum Received 07/01/20 15:20 Urine,Clean Catch Urine Culture - Preliminary NO GROWTH Resulted Height (Feet): 5 Height (Inches): 3.00 Weight (Pounds): 200 Medications Current Medications Medications (Trade) Dose Ordered Sig/Bryant Route PRN Reason Start Time Stop Time Status Last Admin Dose Admin Clonidine HCl (Catapres Tab) 0.1 mg Q4H PRN ORAL For High Blood Pressure 07/02/20 01:15 09/30/20 01:14 07/02/20 01:35 Levofloxacin 100 ml @ 100 mls/hr Q24H IVPB 07/02/20 08:00 07/09/20 07:59 Morphine Sulfate (Morphine Sulfate) 2 mg Q4H PRN IVP For Pain 07/02/20 01:15 07/09/20 01:14 07/02/20 06:10 Sodium Chloride 1,000 ml @ 100 mls/hr Q10H IV 07/01/20 13:30 07/31/20 13:29 07/01/20 22:48 Assessment/Plan Assessment/Plan: INTERNAL MED H&P Covering Dr. Bhavik WILLIAM 07/02/20 RFA: HTN, pancreatitis HPI 40-year-old female with history of hypertension and pancreatitis who was recently hospitalized at [facility] here brought in by paramedics due to the onset of abdominal pain rating a 10 out of 10. Patient presents with blood pressure of 230/120. Denies any chest pain or shortness of breath. Complains of headache and dizziness. Has not taken medication for symptom relief. Reports that she did take her labetalol 200 mg this morning however has not taken medication for pain. Complains of few bouts of nonbloody emesis and feeling nauseated. Denies any diarrhea or constipation. Denies any blood in stool. Gi and cards to see today. Allergies: No Known Allergies (Unverified , 03/24/19) COVID-19 Screening Contact w/high risk pt: No Experienced COVID-19 symptoms?: No COVID-19 Testing performed NEON SIGN ERECTOR: No Patient History Past Medical History: see triage record Past Surgical History: none Pertinent Family History: none Last Menstrual Period: unk Now: No Immunizations: UTD Reviewed Nursing Documentation: PMH: Agreed; PSxH: Agreed Nursing Documentation-PMH Hx Hypertension: Yes Hx Asthma: Yes Hx Cancer: No Hx Gastrointestinal Problems: No Hx Neurological Problems: Yes - Anurysm 2011 Review of Systems All Other Systems: negative except mentioned in HPI Physical Exam Vital Signs Date Time Temp Pulse Resp B/P (MAP) Pulse Ox O2 Delivery O2 Flow Rate FiO2 07/01/20 13:18 92 18 249/164 (192) 100 Room Air Sp02 EP Interpretation: reviewed, abnormal - elevated BP General Appearance: alert, moderate distress Head: normocephalic, atraumatic Eyes: bilateral eye normal inspection, bilateral eye PERRL ENT: hearing grossly normal, normal pharynx, no angioedema, normal voice Neck: full range of motion, supple/symm/no masses Respiratory: chest non-tender, lungs clear, normal breath sounds Cardiovascular: regular rate, rhythm, no edema, no gallop, no murmur Gi: normal bowel sounds, no organomegaly, epigastric ttp Rectal: deferred Genitourinary: no CVA tenderness Musculoskeletal: back normal, no calf tenderness Neurologic: alert, motor strength/tone normal Skin: no rash Lymphatic: no adenopathy Labs: reviewed Imaging: noted Assessmet and Recs # Pancreatitis recurrece with abd pain --> recommend cessation of etoh --> supportive care, ivf, banana bag as needed --> lipase elev --> per gi --> zofran prn # Leukocytosis likely reactive process --> as on abx levaquin --> trend asneeded wbc 16 # Hypertension systolic pressures greater than 200. --> to see [facility], seen on last admission --> labetolol prn given, clonidine # Mild headache but CT scan was unremarkable aside from evidence of prior aneurysmal clipping. # hx Pancreatitis Appreciate air quality consultant care [facility] Hospital declaration INPATIENT level of care is warranted for this patient because patient is a 89 year old with who presents with suspicion of . I have a high level of concern because . Patient is at high risk for . Plan of care/treatment include . Patient care is expected to be greater than 2 midnights. OBSERVATION level of care is warranted for this patient. Patient is a 89 year old with who presents with . Patient will be admitted for 1 midnight, but if additional night(s) is/are necessary, patient will be converted to inpatient status for the entire hospitalization Disposition: Once the patient is stable to leave the hospital, I anticipate the patient will likely be discharged to the following environment: Estimated discharge date: I spent 70 minutes on this patient's case, and minutes was dedicated to counseling and/or care coordination. [facility] ([employer]-based Incentive Payment System) Applicable CPT: 12376, 65487 CHECK ALL THAT ARE MET: Measure #5 (CHF): All ages. Prescribe JAYME/ARB upon discharge for patients with left ventricular systolic dysfunction. If not, the reason is clearly documented in the medical chart. Measure #8 (CHF): All ages. Prescribe a beta jennie upon discharge for patients with left ventricular systolic dysfunction. If not, the reason is clearly documented in the medical chart. Measure #47 Advance care plan or surrogate decision maker documented in the medical record. Measure #130 The provider has documented, updated, or reviewed the patients current medication list and has documented it in the patients note. Measure #374 (All): Send report to referring provider. Measure #407(Sepsis due to MSSA bacteremia): Age 18+ Patient treated with a beta-lactam antibiotic (Nafcillin, Oxacillin or Cefazolin) as definitive therapy. MEDICAL COMPLEXITY High complexity medical decision making (need 2/3 categories) Problem - need 4 points Acute/new problem with new plan for workup (4 points, 1 max) Acute/new problem without additional workup (3 points, 1 max) Unstable chronic problem actively being managed (2 point each, 2 max) Stable chronic problem actively being managed (1 point each, 2 max) Self-limited/transient process (constipation, muscle ache, etc) (1 point each, 2 max) Data - need 4 points Reviewed labs/imaging studies (1 points, 2 max) Independent review of imaging (EKG, xrays, etc) (2 points, 2 max) Discussed case with consult/other MD/RN (2 points, 2 max) High Risk - qualify if have one of the following: Severe exacerbation of acute problem, acute mental status change, IV narcotics, monitoring drug levels (vancomycin, INR, tacrolimus etc) Cb Del Valle MD Jul 02, 2020 06:55
--- NOTE | 2020-07-02 07:14 | NUR ---
NURSE HAND-OFF REPORT: Important Events on Shift: Patient had an episodes of Hypertension and abdominal pain. Patient Status: Patient is asleep on bed, in stable condition with no complaints made at this time. Diet: NPO except meds/ice chips Pending Orders: none Pending Results/Labs:none Pending MD notification: Latest Vital Signs: Temperature 99.1 , Pulse 73 , B/P 148 /62 , Respiratory Rate 20 , O2 SAT 98 , Room Air, O2 Flow Rate . Vital Sign Comment: none EKG Rhythm: Sinus Rhythm Rhythm change?: N MD Notified?: - MD Response: Latest Alvarez Fall Score: 35 Fall Risk: Medium Risk Safety Measures: Call light Within Reach, Bed Alarm , Side Rails Side Rails x2, Bed position Low and Locked. Fall Precautions: Yellow Socks Yellow Gown Door Sign Patient Fall Education Report given to NOAH Gandhi.
[2020-07-02 07:23] LABS: EOSINOPHILS % (AUTO) 2.9 % (0.0-3.0); HEMATOCRIT 44.4 % (37.0-47.0); HEMOGLOBIN 14.9 G/DL (12.0-16.0); LYMPHOCYTES % (AUTO) 25.5 % (20.0-45.0); MEAN CORPUSCULAR VOLUME 101 FL (80-99); MONOCYTES % (AUTO) 8.1 % (1.0-10.0); NEUTROPHILS % (AUTO) 61.6 % (45.0-75.0); PLATELET COUNT 289 K/UL (150-450); RED BLOOD COUNT 4.41 M/UL (4.20-5.40); RED CELL DISTRIBUTION WIDTH 12.7 % (11.6-14.8); WHITE BLOOD COUNT 12.9 K/UL (4.8-10.8)
[2020-07-02 07:59] LABS: ALANINE AMINOTRANSFERASE 41 U/L (12-78); ALBUMIN 2.5 G/DL (3.4-5.0); ALBUMIN/GLOBULIN RATIO 0.8 (1.0-2.7); ALKALINE PHOSPHATASE 41 U/L (46-116); ANION GAP 10 mmol/L (5-15); ASPARTATE AMINO TRANSFERASE 23 U/L (15-37); BILIRUBIN,TOTAL 0.4 MG/DL (0.2-1.0); BLOOD UREA NITROGEN 12 mg/dL (7-18); CARBON DIOXIDE 25 MMOL/L (21-32); CHLORIDE 104 MMOL/L (98-107); CREATININE 0.9 MG/DL (0.55-1.30); POTASSIUM 3.7 MMOL/L (3.5-5.1); SODIUM 139 MMOL/L (136-145)
[2020-07-02 08:00] VITALS: BP 171/96
--- NOTE | 2020-07-02 08:14 | NUR ---
NURSE NOTES: pt in bed AOx4, NPO. she is not in pain at this time. Pt on classroom monitor no signs of cardiac or respiratory distress at this time. Bed is locked and in lowest position , call light within reach. Will continue to monitor pt.
--- NOTE | 2020-07-02 09:37 | History and Physical ---
History of Present Illness General Date patient seen: Jul 02, 2020 Time patient seen: 09:00 Reason for Hospitalization: Abdominal Painuncontrolled htnetoh abused Present Illness HPI 40 years old wf admitted for interctable abdo pain with n/v 3 days prior to adm issions pt still c/o abdo pain 05/04, n/v better , on iv morpine helping in pain, pt also noted her bp is 170/90 c/o pain lt ankle which had injury 2 years ago no cp, no palpiation, no rectal bleeding Allergies: Coded Allergies: No Known Allergies (Unverified , 03/24/19) COVID-19 Screening Contact w/high risk pt: No Experienced COVID-19 symptoms?: No Medication History Scheduled Labetalol Hcl* (Normodyne*), 200 MG ORAL EVERY 12 HOURS, (Reported) Scheduled PRN Albuterol Sulfate* (Albuterol Sulfate Mdi*), 2 PUFF INH Q4H PRN for cough/wheezing Discontinued Medications Amoxicillin/Potassium Clav 875-125* (Augmentin 875-125 Tablet*), 1 TAB ORAL TWICE A DAY Discontinued Reason: Pt stopped taking med Azithromycin* (Zithromax*), 250 MG ORAL DAILY Discontinued Reason: Pt stopped taking med Beclomethasone Dipropionate 40MCG Oral Inh (Qvar 40*), 2 PUFFS INH TWICE A DAY, (Reported) Discontinued Reason: Pt stopped taking med Dextran 70/Hypromellose (Artificial Tears Eye Drops*), 1 DROP BOTH EYES, (Reported) Discontinued Reason: MD discontinued med Fluticasone/Vilanterol (Breo Ellipta 200-25 Mcg INH), 1 EACH IH BID Discontinued Reason: Pt stopped taking med Guaifenesin* (Guaifenesin*), 15 ML ORAL Q6H PRN for For Cough Discontinued Reason: Pt stopped taking med Labetalol Hcl* (Normodyne*), 100 MG ORAL EVERY 12 HOURS, (Reported) Discontinued Reason: Prescription changed Labetalol Hcl* (Normodyne*), 200 MG ORAL EVERY 8 HOURS, (Reported) Discontinued Reason: Medication dose changed Prednisone* (Prednisone*), 10 MG ORAL DAILY, (Reported) Discontinued Reason: MD discontinued med Patient History Healthcare decision maker Resuscitation status Advanced Directive on File Review of Systems Constitutional: Reports: weakness Gastrointestinal: Reports: abdominal pain, nausea, vomiting ROS Narrative rec abdo pain Physical Exam General Appearance: alert, obese, alert oriented x3, other - abdo pain Lines, tubes and drains: peripheral HEENT: atraumatic, anicteric Respiratory/Chest: lungs clear Breasts: no discharge Cardiovascular/Chest: regular rhythm Abdomen: guarding, rebound, hepatomegaly, splenomegaly Extremities: no calf tenderness Skin Exam: warm/dry Neurologic: jira developer II-XII grossly normal, abnormal gait, oriented x 3 Musculoskeletal: other - c/o swelling and tenderness rt ankle and lt knee with decreased rom Last 24 Hour Vital Signs Date Time Temp Pulse Resp B/P (MAP) Pulse Ox O2 Delivery O2 Flow Rate FiO2 07/02/20 08:00 98.8 73 18 171/96 (121) 98 07/02/20 04:00 73 07/02/20 04:00 99.1 73 20 148/62 (90) 98 07/02/20 01:35 177/77 07/02/20 00:00 77 07/02/20 00:00 99.5 70 20 177/77 (110) 100 07/01/20 21:55 Room Air 07/01/20 21:40 98.2 75 21 155/112 (126) 98 07/01/20 21:35 72 07/01/20 21:10 98.2 78 17 155/68 96 Room Air 07/01/20 20:39 71 189/99 07/01/20 18:55 238/121 07/01/20 16:55 84 18 142/123 100 Room Air 07/01/20 16:05 76 226/122 07/01/20 15:21 221/129 07/01/20 14:00 76 218/107 07/01/20 13:40 18 249/164 100 Room Air 07/01/20 13:40 92 18 Room Air 07/01/20 13:18 92 18 249/164 (192) 100 Room Air Intake and Output 07/01/20 07/02/20 18:59 06:59 Intake Total 400 ml Balance 400 ml Intake Oral 0 ml IV Total 400 ml Laboratory Tests Test 07/01/20 13:30 07/01/20 15:20 07/02/20 05:50 White Blood Count 16.1 K/UL (4.8-10.8) H 12.9 K/UL (4.8-10.8) H Red Blood Count 3.98 M/UL (4.20-5.40) L 4.41 M/UL (4.20-5.40) Hemoglobin 13.4 G/DL (12.0-16.0) 14.9 G/DL (12.0-16.0) Hematocrit 39.1 % (37.0-47.0) 44.4 % (37.0-47.0) Mean Corpuscular Volume 98 FL (80-99) 101 FL (80-99) H Mean Corpuscular Hemoglobin 33.8 PG (27.0-31.0) H 33.7 PG (27.0-31.0) H Mean Corpuscular Hemoglobin Concent 34.4 G/DL (32.0-36.0) 33.5 G/DL (32.0-36.0) Red Cell Distribution Width 12.1 % (11.6-14.8) 12.7 % (11.6-14.8) Platelet Count 261 K/UL (150-450) 289 K/UL (150-450) Mean Platelet Volume 7.7 FL (6.5-10.1) 8.2 FL (6.5-10.1) Neutrophils (%) (Auto) 75.3 % (45.0-75.0) H 61.6 % (45.0-75.0) Lymphocytes (%) (Auto) 13.2 % (20.0-45.0) L 25.5 % (20.0-45.0) Monocytes (%) (Auto) 8.3 % (1.0-10.0) 8.1 % (1.0-10.0) Eosinophils (%) (Auto) 0.4 % (0.0-3.0) 2.9 % (0.0-3.0) Basophils (%) (Auto) 2.8 % (0.0-2.0) H 2.0 % (0.0-2.0) Prothrombin Time 12.1 SEC (9.30-11.50) H Prothromb Time International Ratio 1.1 (0.9-1.1) Activated Partial Thromboplast Time 27 SEC (23-33) Sodium Level 137 MMOL/L (136-145) 139 MMOL/L (136-145) Potassium Level 3.7 MMOL/L (3.5-5.1) 3.7 MMOL/L (3.5-5.1) Chloride Level 103 MMOL/L (98-107) 104 MMOL/L (98-107) Carbon Dioxide Level 23 MMOL/L (21-32) 25 MMOL/L (21-32) Anion Gap 12 mmol/L (5-15) 10 mmol/L (5-15) Blood Urea Nitrogen 11 mg/dL (7-18) 12 mg/dL (7-18) Creatinine 0.8 MG/DL (0.55-1.30) 0.9 MG/DL (0.55-1.30) Estimat Glomerular Filtration Rate > 60 mL/min (>60) > 60 mL/min (>60) Glucose Level 92 MG/DL (74-106) 82 MG/DL (74-106) Calcium Level 8.8 MG/DL (8.5-10.1) 8.0 MG/DL (8.5-10.1) L Total Bilirubin 0.6 MG/DL (0.2-1.0) 0.4 MG/DL (0.2-1.0) Aspartate Amino Transf (AST/SGOT) 31 U/L (15-37) 23 U/L (15-37) Alanine Aminotransferase (ALT/SGPT) 53 U/L (12-78) 41 U/L (12-78) Alkaline Phosphatase 47 U/L (46-116) 41 U/L (46-116) L Total Creatine Kinase 59 U/L (26-308) Troponin I 0.002 ng/mL (0.000-0.056) Pro-B-Type Natriuretic Peptide 1307 pg/mL (0-125) H Total Protein 6.4 G/DL (6.4-8.2) 5.6 G/DL (6.4-8.2) L Albumin 2.9 G/DL (3.4-5.0) L 2.5 G/DL (3.4-5.0) L Globulin 3.5 g/dL 3.1 g/dL Albumin/Globulin Ratio 0.8 (1.0-2.7) L 0.8 (1.0-2.7) L Lipase 504 U/L (73-393) H 532 U/L (73-393) H Serum Alcohol < 3 mg/dL Urine Color Red Urine Appearance Cloudy Urine pH 7 (4.5-8.0) Urine Specific [place] 1.010 (1.005-1.035) Urine Protein 3+ (NEGATIVE) H Urine Glucose (UA) Negative (NEGATIVE) Urine Ketones 3+ (NEGATIVE) H Urine Blood 5+ (NEGATIVE) H Urine Nitrite Positive (NEGATIVE) H Urine Bilirubin Negative (NEGATIVE) Urine Urobilinogen 1 MG/DL (0.0-1.0) H Urine Leukocyte Esterase 3+ (NEGATIVE) H Urine RBC Tntc /HPF (0 - 2) H Urine WBC 60-80 /HPF (0 - 2) H Urine Squamous Epithelial Cells Many /LPF (NONE/OCC) H Urine Bacteria Many /HPF (NONE) H Urine HCG, Qualitative Negative (NEGATIVE) Urine Opiates Screen Positive (NEGATIVE) H Urine Barbiturates Screen Negative (NEGATIVE) Phencyclidine (PCP) Screen Negative (NEGATIVE) Urine Amphetamines Screen Negative (NEGATIVE) Urine Benzodiazepines Screen Positive (NEGATIVE) H Urine Cocaine Screen Negative (NEGATIVE) Urine Marijuana (THC) Screen Negative (NEGATIVE) Microbiology Date/Time Source Procedure Growth Status 07/01/20 20:10 Rectum Received 07/01/20 15:20 Urine,Clean Catch Urine Culture - Preliminary NO GROWTH Resulted Height (Feet): 5 Height (Inches): 3.00 Weight (Pounds): 200 Medications Current Medications Medications (Trade) Dose Ordered Sig/Bryant Route PRN Reason Start Time Stop Time Status Last Admin Dose Admin Clonidine HCl (Catapres Tab) 0.1 mg Q4H PRN ORAL For High Blood Pressure 07/02/20 01:15 09/30/20 01:14 07/02/20 01:35 Levofloxacin 100 ml @ 100 mls/hr Q24H IVPB 07/02/20 08:00 07/09/20 07:59 07/02/20 08:44 Lidocaine (Xylocaine 5% cream) 1 applic BID TOPIC 07/02/20 11:00 09/30/20 10:59 Lisinopril (ZestriL) 10 mg BID ORAL 07/02/20 18:00 08/01/20 17:59 Morphine Sulfate (Morphine Sulfate) 2 mg Q4H PRN IVP For Pain 07/02/20 01:15 07/09/20 01:14 07/02/20 06:10 Sodium Chloride 1,000 ml @ 100 mls/hr Q10H IV 07/01/20 13:30 07/31/20 13:29 07/01/20 22:48 Jarret Gutierres MD Jul 02, 2020 09:37
--- NOTE | 2020-07-02 09:40 | History and Physical ---
History of Present Illness General Reason for Hospitalization: Abdominal Pain Present Illness Allergies: Coded Allergies: No Known Allergies (Unverified , 03/24/19) COVID-19 Screening Contact w/high risk pt: No Experienced COVID-19 symptoms?: No Medication History Scheduled Labetalol Hcl* (Normodyne*), 200 MG ORAL EVERY 12 HOURS, (Reported) Scheduled PRN Albuterol Sulfate* (Albuterol Sulfate Mdi*), 2 PUFF INH Q4H PRN for cough/wheezing Discontinued Medications Amoxicillin/Potassium Clav 875-125* (Augmentin 875-125 Tablet*), 1 TAB ORAL TWICE A DAY Discontinued Reason: Pt stopped taking med Azithromycin* (Zithromax*), 250 MG ORAL DAILY Discontinued Reason: Pt stopped taking med Beclomethasone Dipropionate 40MCG Oral Inh (Qvar 40*), 2 PUFFS INH TWICE A DAY, (Reported) Discontinued Reason: Pt stopped taking med Dextran 70/Hypromellose (Artificial Tears Eye Drops*), 1 DROP BOTH EYES, (Reported) Discontinued Reason: MD discontinued med Fluticasone/Vilanterol (Breo Ellipta 200-25 Mcg INH), 1 EACH IH BID Discontinued Reason: Pt stopped taking med Guaifenesin* (Guaifenesin*), 15 ML ORAL Q6H PRN for For Cough Discontinued Reason: Pt stopped taking med Labetalol Hcl* (Normodyne*), 100 MG ORAL EVERY 12 HOURS, (Reported) Discontinued Reason: Prescription changed Labetalol Hcl* (Normodyne*), 200 MG ORAL EVERY 8 HOURS, (Reported) Discontinued Reason: Medication dose changed Prednisone* (Prednisone*), 10 MG ORAL DAILY, (Reported) Discontinued Reason: MD discontinued med Patient History Healthcare decision maker Resuscitation status Advanced Directive on File Physical Exam Last 24 Hour Vital Signs Date Time Temp Pulse Resp B/P (MAP) Pulse Ox O2 Delivery O2 Flow Rate FiO2 07/02/20 08:00 98.8 73 18 171/96 (121) 98 07/02/20 04:00 73 07/02/20 04:00 99.1 73 20 148/62 (90) 98 07/02/20 01:35 177/77 07/02/20 00:00 77 07/02/20 00:00 99.5 70 20 177/77 (110) 100 07/01/20 21:55 Room Air 07/01/20 21:40 98.2 75 21 155/112 (126) 98 07/01/20 21:35 72 07/01/20 21:10 98.2 78 17 155/68 96 Room Air 07/01/20 20:39 71 189/99 07/01/20 18:55 238/121 07/01/20 16:55 84 18 142/123 100 Room Air 07/01/20 16:05 76 226/122 07/01/20 15:21 221/129 07/01/20 14:00 76 218/107 07/01/20 13:40 18 249/164 100 Room Air 07/01/20 13:40 92 18 Room Air 07/01/20 13:18 92 18 249/164 (192) 100 Room Air Intake and Output 07/01/20 07/02/20 18:59 06:59 Intake Total 400 ml Balance 400 ml Intake Oral 0 ml IV Total 400 ml Laboratory Tests Test 07/01/20 13:30 07/01/20 15:20 07/02/20 05:50 White Blood Count 16.1 K/UL (4.8-10.8) H 12.9 K/UL (4.8-10.8) H Red Blood Count 3.98 M/UL (4.20-5.40) L 4.41 M/UL (4.20-5.40) Hemoglobin 13.4 G/DL (12.0-16.0) 14.9 G/DL (12.0-16.0) Hematocrit 39.1 % (37.0-47.0) 44.4 % (37.0-47.0) Mean Corpuscular Volume 98 FL (80-99) 101 FL (80-99) H Mean Corpuscular Hemoglobin 33.8 PG (27.0-31.0) H 33.7 PG (27.0-31.0) H Mean Corpuscular Hemoglobin Concent 34.4 G/DL (32.0-36.0) 33.5 G/DL (32.0-36.0) Red Cell Distribution Width 12.1 % (11.6-14.8) 12.7 % (11.6-14.8) Platelet Count 261 K/UL (150-450) 289 K/UL (150-450) Mean Platelet Volume 7.7 FL (6.5-10.1) 8.2 FL (6.5-10.1) Neutrophils (%) (Auto) 75.3 % (45.0-75.0) H 61.6 % (45.0-75.0) Lymphocytes (%) (Auto) 13.2 % (20.0-45.0) L 25.5 % (20.0-45.0) Monocytes (%) (Auto) 8.3 % (1.0-10.0) 8.1 % (1.0-10.0) Eosinophils (%) (Auto) 0.4 % (0.0-3.0) 2.9 % (0.0-3.0) Basophils (%) (Auto) 2.8 % (0.0-2.0) H 2.0 % (0.0-2.0) Prothrombin Time 12.1 SEC (9.30-11.50) H Prothromb Time International Ratio 1.1 (0.9-1.1) Activated Partial Thromboplast Time 27 SEC (23-33) Sodium Level 137 MMOL/L (136-145) 139 MMOL/L (136-145) Potassium Level 3.7 MMOL/L (3.5-5.1) 3.7 MMOL/L (3.5-5.1) Chloride Level 103 MMOL/L (98-107) 104 MMOL/L (98-107) Carbon Dioxide Level 23 MMOL/L (21-32) 25 MMOL/L (21-32) Anion Gap 12 mmol/L (5-15) 10 mmol/L (5-15) Blood Urea Nitrogen 11 mg/dL (7-18) 12 mg/dL (7-18) Creatinine 0.8 MG/DL (0.55-1.30) 0.9 MG/DL (0.55-1.30) Estimat Glomerular Filtration Rate > 60 mL/min (>60) > 60 mL/min (>60) Glucose Level 92 MG/DL (74-106) 82 MG/DL (74-106) Calcium Level 8.8 MG/DL (8.5-10.1) 8.0 MG/DL (8.5-10.1) L Total Bilirubin 0.6 MG/DL (0.2-1.0) 0.4 MG/DL (0.2-1.0) Aspartate Amino Transf (AST/SGOT) 31 U/L (15-37) 23 U/L (15-37) Alanine Aminotransferase (ALT/SGPT) 53 U/L (12-78) 41 U/L (12-78) Alkaline Phosphatase 47 U/L (46-116) 41 U/L (46-116) L Total Creatine Kinase 59 U/L (26-308) Troponin I 0.002 ng/mL (0.000-0.056) Pro-B-Type Natriuretic Peptide 1307 pg/mL (0-125) H Total Protein 6.4 G/DL (6.4-8.2) 5.6 G/DL (6.4-8.2) L Albumin 2.9 G/DL (3.4-5.0) L 2.5 G/DL (3.4-5.0) L Globulin 3.5 g/dL 3.1 g/dL Albumin/Globulin Ratio 0.8 (1.0-2.7) L 0.8 (1.0-2.7) L Lipase 504 U/L (73-393) H 532 U/L (73-393) H Serum Alcohol < 3 mg/dL Urine Color Red Urine Appearance Cloudy Urine pH 7 (4.5-8.0) Urine Specific [place] 1.010 (1.005-1.035) Urine Protein 3+ (NEGATIVE) H Urine Glucose (UA) Negative (NEGATIVE) Urine Ketones 3+ (NEGATIVE) H Urine Blood 5+ (NEGATIVE) H Urine Nitrite Positive (NEGATIVE) H Urine Bilirubin Negative (NEGATIVE) Urine Urobilinogen 1 MG/DL (0.0-1.0) H Urine Leukocyte Esterase 3+ (NEGATIVE) H Urine RBC Tntc /HPF (0 - 2) H Urine WBC 60-80 /HPF (0 - 2) H Urine Squamous Epithelial Cells Many /LPF (NONE/OCC) H Urine Bacteria Many /HPF (NONE) H Urine HCG, Qualitative Negative (NEGATIVE) Urine Opiates Screen Positive (NEGATIVE) H Urine Barbiturates Screen Negative (NEGATIVE) Phencyclidine (PCP) Screen Negative (NEGATIVE) Urine Amphetamines Screen Negative (NEGATIVE) Urine Benzodiazepines Screen Positive (NEGATIVE) H Urine Cocaine Screen Negative (NEGATIVE) Urine Marijuana (THC) Screen Negative (NEGATIVE) Microbiology Date/Time Source Procedure Growth Status 07/01/20 20:10 Rectum Received 07/01/20 15:20 Urine,Clean Catch Urine Culture - Preliminary NO GROWTH Resulted Height (Feet): 5 Height (Inches): 3.00 Weight (Pounds): 200 Medications Current Medications Medications (Trade) Dose Ordered Sig/Bryant Route PRN Reason Start Time Stop Time Status Last Admin Dose Admin Clonidine HCl (Catapres Tab) 0.1 mg Q4H PRN ORAL For High Blood Pressure 07/02/20 01:15 09/30/20 01:14 07/02/20 01:35 Levofloxacin 100 ml @ 100 mls/hr Q24H IVPB 07/02/20 08:00 07/09/20 07:59 07/02/20 08:44 Lidocaine (Xylocaine 5% cream) 1 applic BID TOPIC 07/02/20 11:00 09/30/20 10:59 Lisinopril (ZestriL) 10 mg BID ORAL 07/02/20 18:00 08/01/20 17:59 Morphine Sulfate (Morphine Sulfate) 2 mg Q4H PRN IVP For Pain 07/02/20 01:15 07/09/20 01:14 07/02/20 06:10 Sodium Chloride 1,000 ml @ 100 mls/hr Q10H IV 07/01/20 13:30 07/31/20 13:29 07/01/20 22:48 Assessment/Plan Assessment/Plan: 1 abdo pain 2 ac pancreatitis 3 accelerated htn 4 hx etoh abused 5 lt ankle pain 6 obesity 7 leucocytosis admit to tele npo ivf iv abx gi consult add acei, clonidine for htn xray of rt foot Jarret Gutierres MD Jul 02, 2020 09:40
--- NOTE | 2020-07-02 10:56 | NUR ---
CASE MANAGEMENT: REVIEW 40 YEAR OLD FEMALE CC: ABD PAIN . N/V/D SI: PANCREATITIS T 99.5 HR 70 RR 22 BP 177/77 SAT 98% ROOM AIR WBC 16.1 BNP 1307 TOX SCREEN OPIATES + BENZO + IS: MORPHINE IV X1 ZOFRAN IV X1 LABETALOL IV X1 PHENERGAN IV X1 PATIENT ADMITTED TO TELEMETRY UNIT 07/01/2020 DCP: PATIENT IS FROM HOME
[2020-07-02 12:00] VITALS: BP 196/93
[2020-07-02] MEDS: Lisinopril 10mg tab ORAL SCH ×2 (12:15→17:37)
--- NOTE | 2020-07-02 12:55 | NUR ---
INSURANCE CLINICALS/REVIEW FAXED TO [facility] P:[phone] F:[phone]
--- NOTE | 2020-07-02 13:20 | General Progress Note ---
Subjective ROS Limited/Unobtainable: Yes Allergies: Coded Allergies: No Known Allergies (Unverified , 03/24/19) Objective Last 24 Hour Vital Signs Date Time Temp Pulse Resp B/P (MAP) Pulse Ox O2 Delivery O2 Flow Rate FiO2 07/02/20 12:21 150/109 07/02/20 12:15 149/109 07/02/20 08:00 98.8 73 18 171/96 (121) 98 07/02/20 04:00 73 07/02/20 04:00 99.1 73 20 148/62 (90) 98 07/02/20 01:35 177/77 07/02/20 00:00 77 07/02/20 00:00 99.5 70 20 177/77 (110) 100 07/01/20 21:55 Room Air 07/01/20 21:40 98.2 75 21 155/112 (126) 98 07/01/20 21:35 72 07/01/20 21:10 98.2 78 17 155/68 96 Room Air 07/01/20 20:39 71 189/99 07/01/20 18:55 238/121 07/01/20 16:55 84 18 142/123 100 Room Air 07/01/20 16:05 76 226/122 07/01/20 15:21 221/129 07/01/20 14:00 76 218/107 07/01/20 13:40 18 249/164 100 Room Air 07/01/20 13:40 92 18 Room Air Intake and Output 07/01/20 07/02/20 19:00 07:00 Intake Total 400 ml Balance 400 ml Intake Oral 0 ml IV Total 400 ml Laboratory Tests 07/01/20 13:30: White Blood Count 16.1H, Red Blood Count 3.98L, Hemoglobin 13.4, Hematocrit 39.1, Mean Corpuscular Volume 98, Mean Corpuscular Hemoglobin 33.8H, Mean Corpuscular Hemoglobin Concent 34.4, Red Cell Distribution Width 12.1, Platelet Count 261, Mean Platelet Volume 7.7, Neutrophils (%) (Auto) 75.3H, Lymphocytes (%) (Auto) 13.2L, Monocytes (%) (Auto) 8.3, Eosinophils (%) (Auto) 0.4, Basophils (%) (Auto) 2.8H, Prothrombin Time 12.1H, Prothromb Time International Ratio 1.1, Activated Partial Thromboplast Time 27, Sodium Level 137, Potassium Level 3.7, Chloride Level 103, Carbon Dioxide Level 23, Anion Gap 12, Blood Urea Nitrogen 11, Creatinine 0.8, Estimat Glomerular Filtration Rate > 60, Glucose Level 92, Calcium Level 8.8, Total Bilirubin 0.6, Aspartate Amino Transf (AST/SGOT) 31, Alanine Aminotransferase (ALT/SGPT) 53, Alkaline Phosphatase 47, Total Creatine Kinase 59, Troponin I 0.002, Pro-B-Type Natriuretic Peptide 1307H , Total Protein 6.4, Albumin 2.9L, Globulin 3.5, Albumin/Globulin Ratio 0.8L, Lipase 504H, Serum Alcohol < 3 07/01/20 15:20: Urine Color Red, Urine Appearance Cloudy, Urine pH 7, Urine Specific [place] 1.010, Urine Protein 3+H, Urine Glucose (UA) Negative, Urine Ketones 3+H, Urine Blood 5+H, Urine Nitrite PositiveH, Urine Bilirubin Negative, Urine Urobilinogen 1H, Urine Leukocyte Esterase 3+H, Urine RBC TntcH, Urine WBC 60-80H, Urine Squamous Epithelial Cells ManyH, Urine Bacteria ManyH, Urine HCG, Qualitative Negative, Urine Opiates Screen PositiveH, Urine Barbiturates Screen Negative, Phencyclidine (PCP) Screen Negative, Urine Amphetamines Screen Negative, Urine Benzodiazepines Screen PositiveH, Urine Cocaine Screen Negative, Urine Marijuana (THC) Screen Negative 07/02/20 05:50: White Blood Count 12.9H, Red Blood Count 4.41, Hemoglobin 14.9, Hematocrit 44.4, Mean Corpuscular Volume 101H, Mean Corpuscular Hemoglobin 33.7H, Mean Corpuscul ar Hemoglobin Concent 33.5, Red Cell Distribution Width 12.7, Platelet Count 289, Mean Platelet Volume 8.2, Neutrophils (%) (Auto) 61.6, Lymphocytes (%) (Auto) 25.5, Monocytes (%) (Auto) 8.1, Eosinophils (%) (Auto) 2.9, Basophils (%) (Auto) 2.0, Sodium Level 139, Potassium Level 3.7, Chloride Level 104, Carbon Dioxide Level 25, Anion Gap 10, Blood Urea Nitrogen 12, Creatinine 0.9, Estimat Glomerular Filtration Rate > 60, Glucose Level 82, Calcium Level 8.0L, Total Bilirubin 0.4, Aspartate Amino Transf (AST/SGOT) 23, Alanine Aminotransferase (ALT/SGPT) 41, Alkaline Phosphatase 41L, Total Protein 5.6L, Albumin 2.5L, Globulin 3.1, Albumin/Globulin Ratio 0.8L, Lipase 532H Height (Feet): 5 Height (Inches): 3.00 Weight (Pounds): 200 General Appearance: no apparent distress EENT: normal ENT inspection Neck: supple Cardiovascular: normal rate Respiratory/Chest: decreased breath sounds Abdomen: soft, hypoactive bowel sounds, tender Extremities: non-tender Assessment/Plan Assessment/Plan: Assessment/Plan Problem List: (1) Pancreatitis ICD Codes: K85.90 - Acute pancreatitis without necrosis or infection, unspecified SNOMED: 92811356 (2) ETOH abuse ICD Codes: F10.10 - Alcohol abuse, uncomplicated SNOMED: 86404948 (3) Hypertension ICD Codes: I10 - Essential (primary) hypertension SNOMED: 01246872 (4) Abdominal pain ICD Codes: R10.9 - Unspecified abdominal pain SNOMED: 50956373 (5) Diverticulosis ICD Codes: K57.90 - Diverticulosis of intestine, part unspecified, without perforation or abscess without bleeding SNOMED: 060752336 (6) Fatty liver ICD Codes: K76.0 - Fatty (change of) liver, not elsewhere classified SNOMED: 805417670 (7) Brain aneurysm ICD Codes: I67.1 - Cerebral aneurysm, nonruptured SNOMED: 972826345, 942977161 Assessment/Plan: clears IVF pain control CT reviewed>>> will order MRCP repeat labs Paco Alexandre MD Jul 02, 2020 13:20
--- NOTE | 2020-07-02 14:18 | Diagnostic Imaging Report ---
Indication: Right ankle pain Technique: 3 views of the right ankle Comparison: none Findings: Lateral side plate and screws seen reducing old healed distal fibular fracture. There is degenerative narrowing of the ankle joint. No acute fractures. No dislocations. Impression: No acute process. Findings as noted
[2020-07-02 16:00] VITALS: BP 176/95
--- NOTE | 2020-07-02 16:28 | Cardiac Electrophysiology PN ---
Subjective Subjective [id number] Objective Last 24 Hour Vital Signs Date Time Temp Pulse Resp B/P (MAP) Pulse Ox O2 Delivery O2 Flow Rate FiO2 07/02/20 12:21 150/109 07/02/20 12:15 149/109 07/02/20 08:00 98.8 73 18 171/96 (121) 98 07/02/20 04:00 73 07/02/20 04:00 99.1 73 20 148/62 (90) 98 07/02/20 01:35 177/77 07/02/20 00:00 77 07/02/20 00:00 99.5 70 20 177/77 (110) 100 07/01/20 21:55 Room Air 07/01/20 21:40 98.2 75 21 155/112 (126) 98 07/01/20 21:35 72 07/01/20 21:10 98.2 78 17 155/68 96 Room Air 07/01/20 20:39 71 189/99 07/01/20 18:55 238/121 07/01/20 16:55 84 18 142/123 100 Room Air Intake and Output 07/01/20 07/02/20 19:00 07:00 Intake Total 400 ml Balance 400 ml Intake Oral 0 ml IV Total 400 ml Laboratory Tests Test 07/02/20 05:50 White Blood Count 12.9 K/UL (4.8-10.8) H Red Blood Count 4.41 M/UL (4.20-5.40) Hemoglobin 14.9 G/DL (12.0-16.0) Hematocrit 44.4 % (37.0-47.0) Mean Corpuscular Volume 101 FL (80-99) H Mean Corpuscular Hemoglobin 33.7 PG (27.0-31.0) H Mean Corpuscular Hemoglobin Concent 33.5 G/DL (32.0-36.0) Red Cell Distribution Width 12.7 % (11.6-14.8) Platelet Count 289 K/UL (150-450) Mean Platelet Volume 8.2 FL (6.5-10.1) Neutrophils (%) (Auto) 61.6 % (45.0-75.0) Lymphocytes (%) (Auto) 25.5 % (20.0-45.0) Monocytes (%) (Auto) 8.1 % (1.0-10.0) Eosinophils (%) (Auto) 2.9 % (0.0-3.0) Basophils (%) (Auto) 2.0 % (0.0-2.0) Sodium Level 139 MMOL/L (136-145) Potassium Level 3.7 MMOL/L (3.5-5.1) Chloride Level 104 MMOL/L (98-107) Carbon Dioxide Level 25 MMOL/L (21-32) Anion Gap 10 mmol/L (5-15) Blood Urea Nitrogen 12 mg/dL (7-18) Creatinine 0.9 MG/DL (0.55-1.30) Estimat Glomerular Filtration Rate > 60 mL/min (>60) Glucose Level 82 MG/DL (74-106) Calcium Level 8.0 MG/DL (8.5-10.1) L Total Bilirubin 0.4 MG/DL (0.2-1.0) Aspartate Amino Transf (AST/SGOT) 23 U/L (15-37) Alanine Aminotransferase (ALT/SGPT) 41 U/L (12-78) Alkaline Phosphatase 41 U/L (46-116) L Total Protein 5.6 G/DL (6.4-8.2) L Albumin 2.5 G/DL (3.4-5.0) L Globulin 3.1 g/dL Albumin/Globulin Ratio 0.8 (1.0-2.7) L Lipase 532 U/L (73-393) H Microbiology Date/Time Source Procedure Growth Status 07/01/20 20:10 Rectum Received 07/01/20 15:20 Urine,Clean Catch Urine Culture - Preliminary NO GROWTH Resulted Filiberto Hawthorne MD Jul 02, 2020 16:28
[2020-07-02] MEDS ORDERED: Lisinopril 10mg tab ORAL SCH (18:00)
--- NOTE | 2020-07-02 19:46 | NUR ---
NURSE HAND-OFF REPORT: Important Events on Shift: Patient Status: Diet: Pending Orders: Pending Results/Labs: Pending MD notification: Latest Vital Signs: Temperature 100.0 , Pulse 72 , B/P 173 /101 , Respiratory Rate 20 , O2 SAT 97 , Room Air, O2 Flow Rate . Vital Sign Comment: EKG Rhythm: Sinus Rhythm Rhythm change?: N MD Notified?: - MD Response: Latest Alvarez Fall Score: 35 Fall Risk: Medium Risk Safety Measures: Call light Within Reach, Bed Alarm Zone 2, Side Rails Side Rails x2, Bed position Low and Locked. Fall Precautions: Yellow Gown Patient Fall Education Report given to .
--- NOTE | 2020-07-02 19:47 | NUR ---
NURSE NOTES: Patient received from Oksana ZAMORA. Patient in stable condition. Nos/s of distress. Complains of RUQ pain of 7/10. Alert and oriented x4. Saturating well on RA. IV site patent and intact on Right AC 20G running NS @ 100mls/hr. Patient in lowest position and locked. Call light and bedside table within reach. Will continue plan of care.
--- NOTE | 2020-07-02 19:47 | NUR ---
NURSE HAND-OFF REPORT: Important Events on Shift:pt has been been HT all day, and has been having pain but receiving morphine q4hrs Patient Status: full Diet: clear liq diet Pending Orders: Pending Results/Labs: Pending MD notification: Latest Vital Signs: Temperature 100.0 , Pulse 72 , B/P 173 /101 , Respiratory Rate 20 , O2 SAT 97 , Room Air, O2 Flow Rate . Vital Sign Comment: EKG Rhythm: Sinus Rhythm Rhythm change?: N MD Notified?: - MD Response: Latest Alvarez Fall Score: 35 Fall Risk: Medium Risk Safety Measures: Call light Within Reach, Bed Alarm Zone 2, Side Rails Side Rails x2, Bed position Low and Locked. Fall Precautions: y Yellow Gown y Patient Fall Education y pt does not want to wear hospital socks Report given to [place]/RN .
[2020-07-02 20:00] VITALS: BP 173/100
--- NOTE | 2020-07-02 23:27 | Consultation ---
DATE OF CONSULTATION: 07/02/2020 CARDIOLOGY CONSULTATION CONSULTING PHYSICIAN: Filiberto Hawthorne MD REFERRING PHYSICIAN: Jarret Guteirres MD REASON FOR CONSULTATION: Accelerated hypertension. HISTORY OF PRESENT ILLNESS: The patient is a 40-year-old lady with a history of hypertension and pancreatitis who was recently hospitalized in [facility], was brought in by paramedics for increasing abdominal pain 10/10 and blood pressure was 230/120, but denies any chest pain, shortness of breath, or syncope. The patient, however, complained of headache and dizziness and is not taking any medication. She took her labetalol this morning. She also had a bout of nonbloody emesis. The patient was admitted and a Cardiology consultation was obtained for further evaluation. It is of note the patient has a history of brain aneurysm in 2011 and is not sure what exactly was done but she thinks that she has some clips in her brain. REVIEW OF SYSTEMS: Negative other than what is mentioned in the history of present illness. PAST MEDICAL HISTORY: As mentioned above. FAMILY HISTORY: Noncontributory. SOCIAL HISTORY: Denies smoking or drinking alcohol. PHYSICAL EXAMINATION: VITAL SIGNS: Blood pressure is 150/109, pulse is 73, respirations 18, and temperature 98.8. HEAD AND NECK: Showed no JVD. LUNGS: Clear. CARDIOVASCULAR: Regular S1 and S2 with no gallop or murmur. ABDOMEN: Soft. EXTREMITIES: No pitting edema. LABORATORY AND DIAGNOSTIC DATA: White count of 12.9, hemoglobin of 14.9, hematocrit of 44, and platelet count is 289. Sodium 139, potassium 3.7, BUN of 12, creatinine 0.7, glucose of 82. Troponin is negative. Urine is positive for benzodiazepine and opiates. Urinalysis showed many bacteria, too numerous to count rbc's and 6 to 8 wbc. ASSESSMENT AND PLAN: 1. Accelerated hypertension. Blood pressure of . The patient is on lisinopril 10 mg b.i.d. I will add Norvasc 5 mg b.i.d. to her medical regimen. The patient also on p.r.n. clonidine. Echocardiogram will be ordered for further evaluation. 2. Abdominal pain, pancreatitis. Further evaluation by Dr. Alexandre. 3. History of alcohol use. 4. History of diverticulosis. 5. Brain aneurysm status post clipping. Thank you very much for allowing me to participate in the care of this patient. Please do not hesitate to contact me for any questions regarding my evaluation. Sincerely, Filiberto Hawthorne M.D. DR: Ramos JOB#: [id number] CC:
[2020-07-03] VITALS (8 sets, daily range): BP systolic 134–223; BP diastolic 61–119
[2020-07-03] MEDS ORDERED: Albuterol 90mcg Inhaler 8gm INH PRN (00:45)
--- NOTE | 2020-07-03 00:45 | NUR ---
NURSE NOTES: Patient complained of wheezing. No PRN medications available. Called Dr Gutierres for PRN medication, and clarified and verified order.
--- NOTE | 2020-07-03 01:00 | NUR ---
NURSE NOTES: Called RT for breathing treatment and breathing treatment given
[2020-07-03] MEDS: Albuterol ud Inhalation HHN PRN (01:02)
[2020-07-03] MEDS: Morphine Sulfate 2mg/ml Inj(IV/IM USE ONLY) IVP PRN ×5 (01:31→19:54)
[2020-07-03 07:03] LABS: BASOPHILS % (AUTO) 1.7 % (0.0-2.0); EOSINOPHILS % (AUTO) 3.2 % (0.0-3.0); HEMATOCRIT 44.4 % (37.0-47.0); HEMOGLOBIN 14.9 G/DL (12.0-16.0); LYMPHOCYTES % (AUTO) 27.2 % (20.0-45.0); MEAN CORPUSCULAR VOLUME 101 FL (80-99); MONOCYTES % (AUTO) 7.4 % (1.0-10.0); NEUTROPHILS % (AUTO) 60.5 % (45.0-75.0); PLATELET COUNT 292 K/UL (150-450); RED BLOOD COUNT 4.41 M/UL (4.20-5.40); RED CELL DISTRIBUTION WIDTH 12.7 % (11.6-14.8); WHITE BLOOD COUNT 10.9 K/UL (4.8-10.8)
[2020-07-03 07:22] LABS: ALANINE AMINOTRANSFERASE 35 U/L (12-78); ALBUMIN 2.8 G/DL (3.4-5.0); ALKALINE PHOSPHATASE 47 U/L (46-116); AMYLASE 159 U/L (25-115); ANION GAP 7 mmol/L (5-15); ASPARTATE AMINO TRANSFERASE 26 U/L (15-37); BILIRUBIN,TOTAL 0.5 MG/DL (0.2-1.0); BLOOD UREA NITROGEN 6 mg/dL (7-18); CALCIUM 8.4 MG/DL (8.5-10.1); CARBON DIOXIDE 27 MMOL/L (21-32); CHLORIDE 105 MMOL/L (98-107); CREATININE 0.8 MG/DL (0.55-1.30); POTASSIUM 3.7 MMOL/L (3.5-5.1); SODIUM 139 MMOL/L (136-145)
--- NOTE | 2020-07-03 07:30 | NUR ---
NURSE NOTES: RECEIVED PATIENT A/A/OX4, AMBULATES WITH STEADY GAIT. NO C/O PAIN/DISCOMFORT NOTED. TOLERATING WITH CLEAR LIQUIDS. PIV PATENT AND INTACT. IVF INFUSING WELL. SKIN INTACT. BLE EDEMATOUS NONPITTING. BED IS IN THE LOWEST POSITION. SIDERAILS ARE UPX2. CALL LIGHT IS WITHIN REACH. BED BRAKES AND LOCK ACTIVATED. WILL CONT TO MONITOR.
--- NOTE | 2020-07-03 07:54 | NUR ---
NURSE HAND-OFF REPORT: Important Events on Shift:[None] Patient Status: [Stable] Diet: [Clear Liquid Diet] Pending Orders: [] Pending Results/Labs:[] Pending MD notification:[] Latest Vital Signs: Temperature 97.7 , Pulse 75 , B/P 158 /97 , Respiratory Rate 16 , O2 SAT 97 , Room Air, O2 Flow Rate . Vital Sign Comment: [] EKG Rhythm: Sinus Rhythm Rhythm change?: N MD Notified?: - MD Response: Latest Alvarez Fall Score: 35 Fall Risk: Medium Risk Safety Measures: Call light Within Reach, Bed Alarm Zone 2, Side Rails Side Rails x2, Bed position Low and Locked. Fall Precautions: Yellow Gown Patient Fall Education Report given to [Vianney RN].
--- NOTE | 2020-07-03 08:00 | General Progress Note ---
Subjective HEENT: Denies: no symptoms, eye pain, blurred vision, tearing, double vision, ear pain, ear discharge, nose pain, nose congestion, throat pain, throat swelling, mouth pain, mouth swelling, other Cardiovascular: Denies: no symptoms, chest pain, edema, irregular heart rate, lightheadedness, palpitations, syncope, other Respiratory: Denies: no symptoms, cough, orthopnea, shortness of breath, SOB with excertion, SOB at rest, sputum, stridor, wheezing, other Gastrointestinal/Abdominal: Denies: no symptoms, abdomen distended, abdominal pain, black stools, tarry stools, blood in stool, constipated, diarrhea, difficulty swallowing, nausea, poor appetite, poor fluid intake, rectal bleeding, vomiting, other Genitourinary: Denies: no symptoms, burning, discharge, frequency, flank pain, hematuria, incontinence, pain, urgency, other Neurologic/Psychiatric: Denies: no symptoms, anxiety, depressed, emotional problems, headache, numbness, paresthesia, pre-existing deficit, seizure, tingling, tremors, weakness, other Endocrine: Denies: no symptoms, excessive sweating, flushing, intolerance to cold, intolerance to heat, increased hunger, increased thirst, increased urine, unexplained weight gain, unexplained weight loss, other Hematologic/Lymphatic: Denies: no symptoms, anemia, easy bleeding, easy bruising, other Allergies: Coded Allergies: No Known Allergies (Unverified , 03/24/19) Subjective 07/03 tolerating clears, wants to dc once w/u done, htn better Objective Last 24 Hour Vital Signs Date Time Temp Pulse Resp B/P (MAP) Pulse Ox O2 Delivery O2 Flow Rate FiO2 07/03/20 04:00 75 07/03/20 04:00 97.7 73 16 158/97 (117) 97 07/03/20 01:02 69 18 99 Room Air 21 66 18 94 07/03/20 00:00 98.1 75 22 142/82 (102) 95 07/03/20 00:00 75 07/02/20 21:00 Room Air 07/02/20 20:53 170/100 07/02/20 20:00 98.8 73 14 173/100 (124) 99 07/02/20 20:00 80 07/02/20 17:37 72 173/101 07/02/20 17:37 173/101 07/02/20 16:00 100.0 75 20 176/95 (122) 97 07/02/20 16:00 80 07/02/20 12:21 150/109 07/02/20 12:15 149/109 07/02/20 12:00 98.9 61 18 196/93 (127) 97 07/02/20 12:00 69 07/02/20 09:00 Room Air 07/02/20 08:00 73 07/02/20 08:00 98.8 73 18 171/96 (121) 98 Intake and Output 07/02/20 07/03/20 19:00 07:00 # Bowel Movements 1 Laboratory Tests 07/03/20 05:35: White Blood Count 10.9H, Red Blood Count 4.41, Hemoglobin 14.9, Hematocrit 44.4, Mean Corpuscular Volume 101H, Mean Corpuscular Hemoglobin 33.7H, Mean C orpuscular Hemoglobin Concent 33.5, Red Cell Distribution Width 12.7, Platelet Count 292, Mean Platelet Volume 7.7, Neutrophils (%) (Auto) 60.5, Lymphocytes (%) (Auto) 27.2, Monocytes (%) (Auto) 7.4, Eosinophils (%) (Auto) 3.2H, Basoph ils (%) (Auto) 1.7, Sodium Level 139, Potassium Level 3.7, Chloride Level 105, Carbon Dioxide Level 27, Anion Gap 7, Blood Urea Nitrogen 6L, Creatinine 0.8, Estimat Glomerular Filtration Rate > 60, Glucose Level 94, Calcium Level 8.4L, Total Bilirubin 0.5, Aspartate Amino Transf (AST/SGOT) 26, Alanine Aminotransferase (ALT/SGPT) 35, Alkaline Phosphatase 47, Troponin I [Pending], Total Protein 5.6L, Albumin 2.8L, Globulin 2.8, Albumin/Globulin Ratio 1.0, Amylase Level 159H, Lipase 794H Height (Feet): 5 Height (Inches): 3.00 Weight (Pounds): 200 Assessment/Plan Assessment/Plan: Assessmet and Recs # Pancreatitis recurrece with abd pain --> recommend cessation of etoh --> supportive care, ivf, banana bag as needed --> lipase elev --> per gi->mrcp ordered --> zofran prn # Pancreatic tail lesion -> mr imaging for further eval # Leukocytosis likely reactive process --> as on abx levaquin --> trend asneeded wbc 16 # Hypertension systolic pressures greater than 200. --> to see Christoph, seen on last admission --> laisniopril, amlodipine # Mild headache but CT scan was unremarkable aside from evidence of prior aneurysmal clipping. # hx Pancreatitis Appreciate actuarial consultant care Cb Del Valle MD Jul 03, 2020 08:00
[2020-07-03] MEDS: Lisinopril 10mg tab ORAL SCH ×2 (08:23→17:07)
--- NOTE | 2020-07-03 08:45 | NUR ---
NURSE NOTES: SPOKE WITH JENNIFER, MRI REP. STATED THAT HE SPOKE WITH DR ESPINO TOLD HIM TO CANCEL MRI TODAY. WILL CONT TO MONITOR.
--- NOTE | 2020-07-03 09:20 | CDS Physician Query ---
Clarification is required for compliance, coding accuracy, and to reflect severity of illness for this patient Dear Dr.Rajendra Bhavik JORDAN Date: 07/03/20 CDI/CDS Name: Chencho Abdalla Clinical Documentation Statement: 40-year-old female with history of hypertension and pancreatitis who was recently hospitalized at [facility] here brought in by paramedics due to the onset of abdominal pain rating a 10 out of 10. Patient presents with blood pressure of 230/120. Denies any chest pain or shortness of breath. Complains of headache and dizziness. Has not taken medication for symptom relief. Reports that she did take her labetalol 200 mg this morning however has not taken medication for pain. Complains of few bouts of nonbloody emesis and feeling nauseated. Denies any diarrhea or constipation. pneumonia. He does have bilateral infiltrates on his x-ray and is also hypoxic on his ABG. [ Cb Rahman MD 07/02/20] ASSESSMENT: HTN, pancreatitis Clinical Finding Show: Vitals (07/01): T92.2F, Pulse 92, RR 21 (07/02): T99.5F, Pulse 80, RR 20 LAB (07/01) : Hemat; WBC16.1, Neut%75.3 Urine : Ur Bacteria "Many" Ur Leuck Esterase "3+" Medication:Levofloxacin IV, Ceftriaxone IV According to the clinical indications above, please indicate below the condition PHYSICIAN RESPONSE: [ ] Sepsis [ ] SIRS [ ] SIRS with organ dysfunction [ ] Septic Shock [ ] Not applicable [ ] Other: Present on Admission: [ ]Yes [ ] No [ ] Clinically Undetermined Physician signature Date Please also document in your Progress Notes and/or Discharge Summary and indicate if the condition was present on admission. SARAH
--- NOTE | 2020-07-03 09:26 | CDS Physician Query ---
PLEASE COMPLETE DOCUMENT BEFORE SIGNING Dear Dr.Rajendra Bhavik JORDAN Date: 07/03/20 CDI/CDS Name: Chencho Abdalla Clinical Documentation Statement: 40-year-old female with history of hypertension and pancreatitis who was recently hospitalized at [facility] here brought in by paramedics due to the onset of abdominal pain rating a 10 out of 10. Patient presents with blood pressure of 230/120. Denies any chest pain or shortness of breath. Complains of headache and dizziness. Has not taken medication for symptom relief. Reports that she did take her labetalol 200 mg this morning however has not taken medication for pain. Complains of few bouts of nonbloody emesis and feeling nauseated. Denies any diarrhea or constipation. pneumonia. He does have bilateral infiltrates on his x-ray and is also hypoxic on his ABG. [ FredoP Cb Del Valle MD 07/02/20] ASSESSMENT: HTN, pancreatitis Clinical Finding Show: BMI:39.9 kg/m2 LAB (07/01) : Chem: Albumin 2.9 [3.4-5.0], Calcium 8.8 [ 8.5-10.1] Medication: Dextrose 50ml IV Please select the most appropriate option: [ ] Protein/Calorie Malnutrition [ ] Mild [ ] Moderate [ ] Severe [ ] Other [ ] Unable to determine [ ] Not Applicable Present on Admission: [ ] Yes [ ] No [ ] Clinically Undetermined Physician signature Date Please also document in your Progress Notes and/or Discharge Summary and indicate if the condition was present on admission. MTDD
--- NOTE | 2020-07-03 11:29 | NUR ---
NURSE NOTES: INFORMED DR FARRELL ABOUT THE BP 223/119. MEDICATED WITH CLONIDINE 0.1 PO PRN. WILL CONT TO MONITOR. UPDATED DR ESPINO REGARDING DIET. PATIENT TOLERATED IT WELL. WILL CONT TO MONITOR. Addendum: 07/03/20 at [address] ESPINO ADVANCED DIET TO LOW FAT. WILL CONT TO MONITOR.
--- NOTE | 2020-07-03 11:50 | General Progress Note ---
Subjective ROS Limited/Unobtainable: Yes Allergies: Coded Allergies: No Known Allergies (Unverified , 03/24/19) Objective Last 24 Hour Vital Signs Date Time Temp Pulse Resp B/P (MAP) Pulse Ox O2 Delivery O2 Flow Rate FiO2 07/03/20 11:18 223/119 07/03/20 09:13 Room Air 07/03/20 08:41 88 07/03/20 08:24 77 151/61 07/03/20 08:23 151/61 07/03/20 08:00 97.7 77 19 151/61 (91) 95 07/03/20 04:00 75 07/03/20 04:00 97.7 73 16 158/97 (117) 97 07/03/20 01:02 69 18 99 Room Air 21 66 18 94 07/03/20 00:00 98.1 75 22 142/82 (102) 95 07/03/20 00:00 75 07/02/20 21:00 Room Air 07/02/20 20:53 170/100 07/02/20 20:00 98.8 73 14 173/100 (124) 99 07/02/20 20:00 80 07/02/20 17:37 72 173/101 07/02/20 17:37 173/101 07/02/20 16:00 100.0 75 20 176/95 (122) 97 07/02/20 16:00 80 07/02/20 12:21 150/109 07/02/20 12:15 149/109 07/02/20 12:00 98.9 61 18 196/93 (127) 97 07/02/20 12:00 69 Intake and Output 07/02/20 07/03/20 19:00 07:00 Intake Total 100 ml Balance 100 ml IV Total 100 ml # Bowel Movements 1 Laboratory Tests 07/03/20 05:35: White Blood Count 10.9H, Red Blood Count 4.41, Hemoglobin 14.9, Hematocrit 44.4, Mean Corpuscular Volume 101H, Mean Corpuscular Hemoglobin 33.7H, Mean Corpuscular Hemoglobin Concent 33.5, Red Cell Distribution Width 12.7, Platelet Count 292, Mean Platelet Volume 7.7, Neutrophils (%) (Auto) 60.5, Lymphocytes (%) (Auto) 27.2, Monocytes (%) (Auto) 7.4, Eosinophils (%) (Auto) 3.2H, Basophils (%) (Auto) 1.7, Sodium Level 139, Potassium Level 3.7, Chloride Level 105, Carbon Dioxide Level 27, Anion Gap 7, Blood Urea Nitrogen 6L, Creatinine 0.8, Estimat Glomerular Filtration Rate > 60, Glucose Level 94, Calcium Level 8.4L, Total Bilirubin 0.5, Aspartate Amino Transf (AST/SGOT) 26, Alanine Aminotransferase (ALT/SGPT) 35, Alkaline Phosphatase 47, Troponin I 0.003, Total Protein 5.6L, Albumin 2.8L, Globulin 2.8, Albumin/Globulin Ratio 1.0, Amylase Level 159H, Lipase 794H Height (Feet): 5 Height (Inches): 3.00 Weight (Pounds): 200 General Appearance: alert EENT: normal ENT inspection Neck: supple Cardiovascular: normal rate Respiratory/Chest: lungs clear Abdomen: hypoactive bowel sounds, tender Extremities: non-tender Assessment/Plan Assessment/Plan: Assessment/Plan Problem List: (1) Pancreatitis ICD Codes: K85.90 - Acute pancreatitis without necrosis or infection, unspecified SNOMED: 16826330 (2) ETOH abuse ICD Codes: F10.10 - Alcohol abuse, uncomplicated SNOMED: 35330983 (3) Hypertension ICD Codes: I10 - Essential (primary) hypertension SNOMED: 89645840 (4) Abdominal pain ICD Codes: R10.9 - Unspecified abdominal pain SNOMED: 55945089 (5) Diverticulosis ICD Codes: K57.90 - Diverticulosis of intestine, part unspecified, without perforation or abscess without bleeding SNOMED: 934750946 (6) Fatty liver ICD Codes: K76.0 - Fatty (change of) liver, not elsewhere classified SNOMED: 449581168 (7) Brain aneurysm ICD Codes: I67.1 - Cerebral aneurysm, nonruptured SNOMED: 760944538, 721152921 Assessment/Plan: pain is better today despite of increasing lipase MRCP canceled given drain aneurysm Clipps advance diet IVF pain control repeat labs Paco Alexandre MD Jul 03, 2020 11:50
--- NOTE | 2020-07-03 15:19 | NUR ---
NURSE NOTES: PATIENT IS C/O PAIN ON THE TRUNK NONE RADIATING. INFORMED DR ADRIAN A COVERING MD FOR DR FARRELL FOR BREAKTHROUGH PAIN. AWAITS FOR A CALLBACK. WILL CONT TO MONITOR.
--- NOTE | 2020-07-03 16:10 | NUR ---
CASE MANAGEMENT:REVIEW 07/03/20 SI: HTN. PANCREATITIS 101.7 79 19 187/84 97% ON RA WBC+10.9 LIPASE+794 AMYLASE+159 IS: IVF@100/HR IV LEVAQUIN Q24 NORVASC PO BID LISINOPRIL PO BID : TELEMETRY STATUS DCP: FROM HOME PLAN: CLEAR LIQUID DIET ~ ADVANCE TO LOW FAT DIET IF ABLE
--- NOTE | 2020-07-03 16:12 | NUR ---
NURSE NOTES: INFORMED DR ADRIAN FOR TEMP 101.7. NO ACETAMINOPHEN ON FILE. COOLING MEASURES RENDERED. WILL CONT TO MONITOR.
[2020-07-03] MEDS ORDERED: HYDROmorphone 2mg tab ORAL PRN (16:15)
--- NOTE | 2020-07-03 16:18 | Cardiac Electrophysiology PN ---
Assessment/Plan Assessment/Plan 1. Accelerated hypertension. Despite lisinopril 10 mg b.i.d. and Norvasc 5 mg b.i.d. Add Hydralazine 50 bid. The patient also on p.r.n. clonidine. Echocardiogram pending. 2. Abdominal pain, pancreatitis. Further evaluation by Dr. Alexandre. 3. History of alcohol use. 4. History of diverticulosis. 5. Brain aneurysm status post clipping. Subjective Subjective Feeling abd pain is better but BP still in 220s! Objective Last 24 Hour Vital Signs Date Time Temp Pulse Resp B/P (MAP) Pulse Ox O2 Delivery O2 Flow Rate FiO2 07/03/20 16:08 101.7 07/03/20 16:00 187/84 07/03/20 15:55 101.7 79 19 187/84 (118) 97 07/03/20 13:38 80 159/98 (118) 07/03/20 12:25 81 07/03/20 11:55 97.9 07/03/20 11:49 97.9 83 20 223/119 (153) 96 07/03/20 11:18 223/119 07/03/20 09:13 Room Air 07/03/20 08:41 88 07/03/20 08:24 77 151/61 07/03/20 08:23 151/61 07/03/20 08:00 97.7 77 19 151/61 (91) 95 07/03/20 04:00 75 07/03/20 04:00 97.7 73 16 158/97 (117) 97 07/03/20 01:02 69 18 99 Room Air 21 66 18 94 07/03/20 00:00 98.1 75 22 142/82 (102) 95 07/03/20 00:00 75 07/02/20 21:00 Room Air 07/02/20 20:53 170/100 07/02/20 20:00 98.8 73 14 173/100 (124) 99 07/02/20 20:00 80 07/02/20 17:37 72 173/101 07/02/20 17:37 173/101 Intake and Output 07/02/20 07/03/20 19:00 07:00 Intake Total 100 ml Balance 100 ml IV Total 100 ml # Bowel Movements 1 Laboratory Tests Test 07/03/20 05:35 White Blood Count 10.9 K/UL (4.8-10.8) H Red Blood Count 4.41 M/UL (4.20-5.40) Hemoglobin 14.9 G/DL (12.0-16.0) Hematocrit 44.4 % (37.0-47.0) Mean Corpuscular Volume 101 FL (80-99) H Mean Corpuscular Hemoglobin 33.7 PG (27.0-31.0) H Mean Corpuscular Hemoglobin Concent 33.5 G/DL (32.0-36.0) Red Cell Distribution Width 12.7 % (11.6-14.8) Platelet Count 292 K/UL (150-450) Mean Platelet Volume 7.7 FL (6.5-10.1) Neutrophils (%) (Auto) 60.5 % (45.0-75.0) Lymphocytes (%) (Auto) 27.2 % (20.0-45.0) Monocytes (%) (Auto) 7.4 % (1.0-10.0) Eosinophils (%) (Auto) 3.2 % (0.0-3.0) H Basophils (%) (Auto) 1.7 % (0.0-2.0) Sodium Level 139 MMOL/L (136-145) Potassium Level 3.7 MMOL/L (3.5-5.1) Chloride Level 105 MMOL/L (98-107) Carbon Dioxide Level 27 MMOL/L (21-32) Anion Gap 7 mmol/L (5-15) Blood Urea Nitrogen 6 mg/dL (7-18) L Creatinine 0.8 MG/DL (0.55-1.30) Estimat Glomerular Filtration Rate > 60 mL/min (>60) Glucose Level 94 MG/DL (74-106) Calcium Level 8.4 MG/DL (8.5-10.1) L Total Bilirubin 0.5 MG/DL (0.2-1.0) Aspartate Amino Transf (AST/SGOT) 26 U/L (15-37) Alanine Aminotransferase (ALT/SGPT) 35 U/L (12-78) Alkaline Phosphatase 47 U/L (46-116) Troponin I 0.003 ng/mL (0.000-0.056) Total Protein 5.6 G/DL (6.4-8.2) L Albumin 2.8 G/DL (3.4-5.0) L Globulin 2.8 g/dL Albumin/Globulin Ratio 1.0 (1.0-2.7) Amylase Level 159 U/L (25-115) H Lipase 794 U/L (73-393) H Microbiology Date/Time Source Procedure Growth Status 07/01/20 20:10 Rectum Received 07/01/20 15:20 Urine,Clean Catch Urine Culture - Final Diphtheroids Complete Objective HEAD AND NECK: Showed no JVD. LUNGS: Clear. CARDIOVASCULAR: Regular S1 and S2 with no gallop or murmur. ABDOMEN: Soft. EXTREMITIES: No pitting edema. Filiberto Hawthorne MD Jul 03, 2020 16:18
--- NOTE | 2020-07-03 16:50 | NUR ---
INSURANCE CLINICALS/REVIEW FAXED TO [employer] [facility]/[employer] P:[phone] F:[phone]
[2020-07-03] MEDS: HydrALAZINE 50mg tab ORAL SCH (17:11)
--- NOTE | 2020-07-03 17:39 | Cardiology Progress Note ---
Assessment/Plan Assessment/Plan The patient is seen and examined, full consult note is dictated. Objective Last 24 Hour Vital Signs Date Time Temp Pulse Resp B/P (MAP) Pulse Ox O2 Delivery O2 Flow Rate FiO2 07/03/20 17:11 187/84 07/03/20 17:07 79 187/84 07/03/20 17:07 187/84 07/03/20 16:08 101.7 07/03/20 16:00 187/84 07/03/20 15:55 101.7 79 19 187/84 (118) 97 07/03/20 13:38 80 159/98 (118) 07/03/20 12:25 81 07/03/20 11:55 97.9 07/03/20 11:49 97.9 83 20 223/119 (153) 96 07/03/20 11:18 223/119 07/03/20 09:13 Room Air 07/03/20 08:41 88 07/03/20 08:24 77 151/61 07/03/20 08:23 151/61 07/03/20 08:00 97.7 77 19 151/61 (91) 95 07/03/20 04:00 75 07/03/20 04:00 97.7 73 16 158/97 (117) 97 07/03/20 01:02 69 18 99 Room Air 21 66 18 94 07/03/20 00:00 98.1 75 22 142/82 (102) 95 07/03/20 00:00 75 07/02/20 21:00 Room Air 07/02/20 20:53 170/100 07/02/20 20:00 98.8 73 14 173/100 (124) 99 07/02/20 20:00 80 Intake and Output 07/02/20 07/03/20 19:00 07:00 Intake Total 100 ml Balance 100 ml IV Total 100 ml # Bowel Movements 1 Laboratory Tests Test 07/03/20 05:35 White Blood Count 10.9 K/UL (4.8-10.8) H Red Blood Count 4.41 M/UL (4.20-5.40) Hemoglobin 14.9 G/DL (12.0-16.0) Hematocrit 44.4 % (37.0-47.0) Mean Corpuscular Volume 101 FL (80-99) H Mean Corpuscular Hemoglobin 33.7 PG (27.0-31.0) H Mean Corpuscular Hemoglobin Concent 33.5 G/DL (32.0-36.0) Red Cell Distribution Width 12.7 % (11.6-14.8) Platelet Count 292 K/UL (150-450) Mean Platelet Volume 7.7 FL (6.5-10.1) Neutrophils (%) (Auto) 60.5 % (45.0-75.0) Lymphocytes (%) (Auto) 27.2 % (20.0-45.0) Monocytes (%) (Auto) 7.4 % (1.0-10.0) Eosinophils (%) (Auto) 3.2 % (0.0-3.0) H Basophils (%) (Auto) 1.7 % (0.0-2.0) Sodium Level 139 MMOL/L (136-145) Potassium Level 3.7 MMOL/L (3.5-5.1) Chloride Level 105 MMOL/L (98-107) Carbon Dioxide Level 27 MMOL/L (21-32) Anion Gap 7 mmol/L (5-15) Blood Urea Nitrogen 6 mg/dL (7-18) L Creatinine 0.8 MG/DL (0.55-1.30) Estimat Glomerular Filtration Rate > 60 mL/min (>60) Glucose Level 94 MG/DL (74-106) Calcium Level 8.4 MG/DL (8.5-10.1) L Total Bilirubin 0.5 MG/DL (0.2-1.0) Aspartate Amino Transf (AST/SGOT) 26 U/L (15-37) Alanine Aminotransferase (ALT/SGPT) 35 U/L (12-78) Alkaline Phosphatase 47 U/L (46-116) Troponin I 0.003 ng/mL (0.000-0.056) Total Protein 5.6 G/DL (6.4-8.2) L Albumin 2.8 G/DL (3.4-5.0) L Globulin 2.8 g/dL Albumin/Globulin Ratio 1.0 (1.0-2.7) Amylase Level 159 U/L (25-115) H Lipase 794 U/L (73-393) H Microbiology Date/Time Source Procedure Growth Status 07/01/20 20:10 Rectum Received 07/01/20 15:20 Urine,Clean Catch Urine Culture - Final Diphtheroids Complete Filiberto Rose MD Jul 03, 2020 17:39
--- NOTE | 2020-07-03 19:07 | NUR ---
NURSE NOTES: Patient received from Vianney ZAMORA. Patient in stable condition. Alert and oriented x4 saturating well on Room Air. Diet upgraded to soft diet. Patient complaining of pain 8/10 for Right upper quadrant, PRN medication not yet due. Bed in lowest position and locked. Call light and bedside table within reach. Will continue plan of care.
--- NOTE | 2020-07-03 19:07 | NUR ---
NURSE HAND-OFF REPORT: Important Events on Shift:[BLOOD PRESSURE MONITORING, TEMP, PAIN MANAGEMENT, D/C IVF DUE TO HBP, ADVANCE DIET.] Patient Status: [WORK IN PROGRESS] Diet: [SOFT ] Pending Orders: [LABS ] Pending Results/Labs:[IN AM] Pending MD notification:[] Latest Vital Signs: Temperature 99.6 , Pulse 88 , B/P 151 /85 , Respiratory Rate 19 , O2 SAT 97 , Room Air, O2 Flow Rate . Vital Sign Comment: [] EKG Rhythm: Sinus Rhythm Rhythm change?: N MD Notified?: - MD Response: Latest Alvarez Fall Score: 35 Fall Risk: Medium Risk Safety Measures: Call light Within Reach, Bed Alarm Zone 1, Side Rails Side Rails x2, Bed position Low and Locked. Fall Precautions: Yellow Gown Patient Fall Education Report given to [YOAV].
[2020-07-03] MEDS ORDERED: HAIR, SKIN AND1 EAC2 PO (20:15)
[2020-07-03] MEDS: HYDROcodone/Acetamin 10/325 tab ORAL PRN (22:59)
[2020-07-04] VITALS: BP 150/98
[2020-07-04] MEDS: Morphine Sulfate 2mg/ml Inj(IV/IM USE ONLY) IVP PRN ×6 (00:10→22:07)
[2020-07-04 04:00] VITALS: BP 158/95
[2020-07-04] MEDS: HYDROcodone/Acetamin 10/325 tab ORAL PRN ×3 (06:28→19:51)
--- NOTE | 2020-07-04 07:13 | NUR ---
NURSE HAND-OFF REPORT: Important Events on Shift:[High Blood Pressure ] Patient Status: [Stable] Diet: [Advance Diet from [facility] soft to ground to soft easy chew] Pending Orders: [] Pending Results/Labs:[] Pending MD notification:[] Latest Vital Signs: Temperature 98.2 , Pulse 75 , B/P 180 /98 , Respiratory Rate 20 , O2 SAT 95 , Room Air, O2 Flow Rate . Vital Sign Comment: [] EKG Rhythm: Sinus Rhythm Rhythm change?: N MD Notified?: - MD Response: Latest Alvarez Fall Score: 35 Fall Risk: Medium Risk Safety Measures: Call light Within Reach, Bed Alarm Zone 2, Side Rails Side Rails x2, Bed position Low and Locked. Fall Precautions: Yellow Gown Patient Fall Education Report given to [Vianney RN].
[2020-07-04 07:20] LABS: BASOPHILS % (AUTO) 2.5 % (0.0-2.0); EOSINOPHILS % (AUTO) 3.4 % (0.0-3.0); HEMATOCRIT 44.8 % (37.0-47.0); HEMOGLOBIN 15.2 G/DL (12.0-16.0); LYMPHOCYTES % (AUTO) 20.5 % (20.0-45.0); MEAN CORPUSCULAR VOLUME 100 FL (80-99); MONOCYTES % (AUTO) 8.5 % (1.0-10.0); NEUTROPHILS % (AUTO) 65.1 % (45.0-75.0); PLATELET COUNT 286 K/UL (150-450); RED CELL DISTRIBUTION WIDTH 12.4 % (11.6-14.8); WHITE BLOOD COUNT 10.7 K/UL (4.8-10.8)
[2020-07-04 07:31] LABS: ALANINE AMINOTRANSFERASE 30 U/L (12-78); ALBUMIN 2.7 G/DL (3.4-5.0); ALBUMIN/GLOBULIN RATIO 0.9 (1.0-2.7); ALKALINE PHOSPHATASE 47 U/L (46-116); AMYLASE 130 U/L (25-115); ASPARTATE AMINO TRANSFERASE 26 U/L (15-37); BILIRUBIN,TOTAL 0.5 MG/DL (0.2-1.0); BLOOD UREA NITROGEN 2 mg/dL (7-18); CALCIUM 8.5 MG/DL (8.5-10.1); CARBON DIOXIDE 27 MMOL/L (21-32); CHLORIDE 101 MMOL/L (98-107); CREATININE 0.6 MG/DL (0.55-1.30); POTASSIUM 3.3 MMOL/L (3.5-5.1); SODIUM 136 MMOL/L (136-145)
--- NOTE | 2020-07-04 07:35 | NUR ---
NURSE NOTES: RECEIVED PATIENT A/A/OX4 IN BED CALM AND COMFORTABLE. AMBULATES WITH STEADY GAIT. NO C/O PAIN/DISCOMFORT NOTED. TOLERATING WITH SOFT DIET. NO C/O N/V NOTED. PIV PATENT AND INTACT. SALINE LOCK. SKIN INTACT. BLE EDEMATOUS NONPITTING. BED IS IN THE LOWEST POSITION. SIDERAILS ARE UPX2. CALL LIGHT IS WITHIN REACH. BED BRAKES AND LOCK ACTIVATED. WILL CONT TO MONITOR.
[2020-07-04 08:00] VITALS: BP 160/77
[2020-07-04] MEDS: Lisinopril 10mg tab ORAL SCH ×2 (08:15→17:07)
[2020-07-04] MEDS: HydrALAZINE 50mg tab ORAL SCH ×2 (08:15→17:08)
--- NOTE | 2020-07-04 08:42 | General Progress Note ---
Subjective Allergies: Coded Allergies: No Known Allergies (Unverified , 03/24/19) Subjective Subjective: 07/04: No acute distress, no events overnight. Covering Dr. Gutierres Objective Last 24 Hour Vital Signs Date Time Temp Pulse Resp B/P (MAP) Pulse Ox O2 Delivery O2 Flow Rate FiO2 07/04/20 08:15 160/77 07/04/20 08:15 160/77 07/04/20 08:15 160/77 07/04/20 08:00 98.4 78 17 160/77 (104) 96 07/04/20 04:19 180/98 07/04/20 04:00 98.1 75 20 158/95 (116) 95 07/04/20 04:00 75 07/04/20 00:00 77 07/04/20 00:00 98.2 77 18 150/98 (115) 94 07/03/20 21:00 Room Air 07/03/20 20:00 78 07/03/20 20:00 98.2 78 18 134/84 (101) 95 07/03/20 18:31 99.6 88 151/85 (107) 07/03/20 17:38 101.7 07/03/20 17:37 99.6 07/03/20 17:11 187/84 07/03/20 17:07 79 187/84 07/03/20 17:07 187/84 07/03/20 16:08 101.7 07/03/20 16:00 187/84 07/03/20 16:00 81 07/03/20 15:55 101.7 79 19 187/84 (118) 97 07/03/20 13:38 80 159/98 (118) 07/03/20 12:25 81 07/03/20 11:55 97.9 07/03/20 11:49 97.9 83 20 223/119 (153) 96 07/03/20 11:18 223/119 07/03/20 09:13 Room Air 07/03/20 08:41 88 Intake and Output 07/03/20 07/04/20 19:00 07:00 Intake Total 200 ml Balance 200 ml IV Total 200 ml Laboratory Tests 07/04/20 06:05: White Blood Count 10.7, Red Blood Count 4.50, Hemoglobin 15.2, Hematocrit 44.8, Mean Corpuscular Volume 100H, Mean Corpuscular Hemoglobin 33.8H, Mean Corpuscular Hemoglobin Concent 34.0, Red Cell Distribution Width 12.4, Platelet Count 286, Mean Platelet Volume 7.9, Neutrophils (%) (Auto) 65.1, Lymphocytes (%) (Auto) 20.5, Monocytes (%) (Auto) 8.5, Eosinophils (%) (Auto) 3.4H, Basophils (%) (Auto) 2.5H, Sodium Level 136, Potassium Level 3.3L, Chloride Level 101, Carbon Dioxide Level 27, Blood Urea Nitrogen 2L, Creatinine 0.6, Estimat Glomerular Filtration Rate > 60, Glucose Level 103, Calcium Level 8.5, Total Bilirubin 0.5, Aspartate Amino Transf (AST/SGOT) 26, Alanine Aminotransferase (ALT/SGPT) 30, Alkaline Phosphatase 47, Total Protein 5.6L, Albumin 2.7L, Globulin 2.9, Albumin/Globulin Ratio 0.9L, Amylase Level 130H, Lipase 481H Height (Feet): 5 Height (Inches): 3.00 Weight (Pounds): 200 Objective General Appearance: alert, moderate distress Head: normocephalic, atraumatic Eyes: bilateral eye normal inspection, bilateral eye PERRL ENT: hearing grossly normal, normal pharynx, no angioedema, normal voice Neck: full range of motion, supple/symm/no masses Respiratory: chest non-tender, lungs clear, normal breath sounds Cardiovascular: regular rate, rhythm, no edema, no gallop, no murmur Gi: normal bowel sounds, no organomegaly, epigastric ttp Rectal: deferred Genitourinary: no CVA tenderness Musculoskeletal: back normal, no calf tenderness Neurologic: alert, motor strength/tone normal Skin: no rash Lymphatic: no adenopathy Assessment/Plan Assessment/Plan: Assessmet and Recs # Pancreatitis recurrence with abd pain --> recommend cessation of etoh --> supportive care, ivf, banana bag as needed --> lipase elev --> per gi --> zofran prn --> US ABD revealed: 1.2 cm hypoechoic lesion in the pancreatic body tail junction. Recommend multiphasic contrast CT for further evaluation. Negative for gallstones or dilated bile ducts Liver demonstrates diffusely increased echogenicity, consistent with diffuse hepatocellular disease, most likely fatty change. # Leukocytosis likely reactive process --> as on abx levaquin --> trend as needed wbc 16--> 10.7 # Hypertension systolic pressures greater than 200. --> to see Dr. Hawthorne, seen on last admission --> labetolol prn given, clonidine # Mild headache but CT scan was unremarkable aside from evidence of prior aneurysmal clipping. # hx Pancreatitis Appreciate staff consultant care Leslie Kelly NP Jul 04, 2020 08:42
--- NOTE | 2020-07-04 11:01 | NUR ---
NURSE NOTES: NOTIFIED DR ADRIAN FOR K+3.3 TODAY. AWAITS FOR A CALLBACK. WILL CONT TO MONITOR. Addendum: 07/04/20 at 1129 by WARREN CURIEL LVN MADE DR XIONG AWARE OF THE K+3.3 TODAY. AWAITS FOR A CALLBACK. Addendum: 07/04/20 at 1139 by WARREN CURIEL LVN NEW ORDER OBTAINED FROM DR XIONG. WILL CONT TO MONITOR.
[2020-07-04] MEDS: Albuterol ud Inhalation HHN PRN ×2 (11:25→20:07)
[2020-07-04 11:43] VITALS: BP 180/113
--- NOTE | 2020-07-04 11:45 | NUR ---
NURSE NOTES: MEDICATED WITH CLONIDINE 0.1 MG FOR SBP 180/113 AND NORCO FOR MILD PAIN 6/10. ASYMPTOMATIC. MIYA SANCHEZ GAVE HHN WELL. WILL CONT TO MONITOR.
--- NOTE | 2020-07-04 15:03 | NUR ---
CASE MANAGEMENT:REVIEW SI;HTN. PANCREATITIS. 98.4 80 17 180/113 94% ON RA K+ 3.3 ALB 2.7 LIPASE 481 IS;K-DUR PO ONCE HYDRALAZINE PO BIDS NORCO PO Q4 PORN PROVENTIL HHN Q6 PRN NORVASC PO BID ZESTRIL PO BID LEVAQUIN IV Q24 TELE STATUS DCP;FROM HOME
--- NOTE | 2020-07-04 15:09 | NUR ---
INSURANCE CLINICALS/REVIEW FAXED TO [facility]/[employer] P:[phone] F:[phone]
[2020-07-04 15:36] VITALS: BP 121/81
--- NOTE | 2020-07-04 15:56 | Cardiac Electrophysiology PN ---
Assessment/Plan Assessment/Plan 1. Accelerated hypertension. Better on lisinopril 10 mg bid, Norvasc 5 mg b.i.d. and Hydralazine 50 bid. The patient also on p.r.n. clonidine. Echocardiogram EF 65% 2. Abdominal pain, pancreatitis. Further evaluation by Dr. Alexandre. MRCP canceled due to brain clips 3. History of alcohol use. 4. History of diverticulosis. 5. Brain aneurysm status post clipping. Subjective Subjective Feeling abd pain is better and BP is better. RN at bedside Objective Last 24 Hour Vital Signs Date Time Temp Pulse Resp B/P (MAP) Pulse Ox O2 Delivery O2 Flow Rate FiO2 07/04/20 15:36 99.7 74 17 121/81 (94) 94 07/04/20 13:18 98.1 07/04/20 12:00 80 07/04/20 11:50 98.1 07/04/20 11:43 98.1 76 17 180/113 (135) 97 07/04/20 11:21 180/113 07/04/20 09:00 Room Air 07/04/20 08:59 98.4 07/04/20 08:15 160/77 07/04/20 08:15 160/77 07/04/20 08:15 160/77 07/04/20 08:00 98.4 78 17 160/77 (104) 96 07/04/20 08:00 80 07/04/20 04:19 180/98 07/04/20 04:00 98.1 75 20 158/95 (116) 95 07/04/20 04:00 75 07/04/20 00:00 77 07/04/20 00:00 98.2 77 18 150/98 (115) 94 07/03/20 21:00 Room Air 07/03/20 20:00 78 07/03/20 20:00 98.2 78 18 134/84 (101) 95 07/03/20 18:31 99.6 88 151/85 (107) 07/03/20 17:38 101.7 07/03/20 17:37 99.6 07/03/20 17:11 187/84 07/03/20 17:07 79 187/84 07/03/20 17:07 187/84 07/03/20 16:08 101.7 07/03/20 16:00 187/84 07/03/20 16:00 81 07/03/20 15:55 101.7 79 19 187/84 (118) 97 Intake and Output 07/03/20 07/04/20 19:00 07:00 Intake Total 200 ml Balance 200 ml IV Total 200 ml Laboratory Tests Test 07/04/20 06:05 White Blood Count 10.7 K/UL (4.8-10.8) Red Blood Count 4.50 M/UL (4.20-5.40) Hemoglobin 15.2 G/DL (12.0-16.0) Hematocrit 44.8 % (37.0-47.0) Mean Corpuscular Volume 100 FL (80-99) H Mean Corpuscular Hemoglobin 33.8 PG (27.0-31.0) H Mean Corpuscular Hemoglobin Concent 34.0 G/DL (32.0-36.0) Red Cell Distribution Width 12.4 % (11.6-14.8) Platelet Count 286 K/UL (150-450) Mean Platelet Volume 7.9 FL (6.5-10.1) Neutrophils (%) (Auto) 65.1 % (45.0-75.0) Lymphocytes (%) (Auto) 20.5 % (20.0-45.0) Monocytes (%) (Auto) 8.5 % (1.0-10.0) Eosinophils (%) (Auto) 3.4 % (0.0-3.0) H Basophils (%) (Auto) 2.5 % (0.0-2.0) H Sodium Level 136 MMOL/L (136-145) Potassium Level 3.3 MMOL/L (3.5-5.1) L Chloride Level 101 MMOL/L (98-107) Carbon Dioxide Level 27 MMOL/L (21-32) Blood Urea Nitrogen 2 mg/dL (7-18) L Creatinine 0.6 MG/DL (0.55-1.30) Estimat Glomerular Filtration Rate > 60 mL/min (>60) Glucose Level 103 MG/DL (74-106) Calcium Level 8.5 MG/DL (8.5-10.1) Total Bilirubin 0.5 MG/DL (0.2-1.0) Aspartate Amino Transf (AST/SGOT) 26 U/L (15-37) Alanine Aminotransferase (ALT/SGPT) 30 U/L (12-78) Alkaline Phosphatase 47 U/L (46-116) Total Protein 5.6 G/DL (6.4-8.2) L Albumin 2.7 G/DL (3.4-5.0) L Globulin 2.9 g/dL Albumin/Globulin Ratio 0.9 (1.0-2.7) L Amylase Level 130 U/L (25-115) H Lipase 481 U/L (73-393) H Microbiology Date/Time Source Procedure Growth Status 07/01/20 20:10 Rectum VRE Culture - Final NO VANCOMYCIN RESISTANT ENTEROCOCCUS ... Complete 07/01/20 20:10 Nasal Nares MRSA Culture - Final NO METHICILLIN RESISTANT STAPH AUREUS... Complete Objective HEAD AND NECK: No JVD. LUNGS: Clear. CARDIOVASCULAR: Regular S1 and S2 with no gallop or murmur. ABDOMEN: Soft. EXTREMITIES: No pitting edema. Filiberto Hawthorne MD Jul 04, 2020 15:56
[2020-07-04] MEDS ORDERED: Tubing IV Secondary IV ONE (17:56)
--- NOTE | 2020-07-04 18:14 | General Progress Note ---
Subjective Allergies: Coded Allergies: No Known Allergies (Unverified , 03/24/19) Subjective above noted comfortable no abd pain no BM Objective Last 24 Hour Vital Signs Date Time Temp Pulse Resp B/P (MAP) Pulse Ox O2 Delivery O2 Flow Rate FiO2 07/04/20 17:08 121/81 07/04/20 17:08 65 121/81 07/04/20 17:07 121/81 07/04/20 16:00 65 07/04/20 15:36 99.7 74 17 121/81 (94) 94 07/04/20 13:18 98.1 07/04/20 12:00 80 07/04/20 11:50 98.1 07/04/20 11:43 98.1 76 17 180/113 (135) 97 07/04/20 11:21 180/113 07/04/20 09:00 Room Air 07/04/20 08:59 98.4 07/04/20 08:15 160/77 07/04/20 08:15 160/77 07/04/20 08:15 160/77 07/04/20 08:00 98.4 78 17 160/77 (104) 96 07/04/20 08:00 80 07/04/20 04:19 180/98 07/04/20 04:00 98.1 75 20 158/95 (116) 95 07/04/20 04:00 75 07/04/20 00:00 77 07/04/20 00:00 98.2 77 18 150/98 (115) 94 07/03/20 21:00 Room Air 07/03/20 20:00 78 07/03/20 20:00 98.2 78 18 134/84 (101) 95 07/03/20 18:31 99.6 88 151/85 (107) Intake and Output 07/03/20 07/04/20 19:00 07:00 Intake Total 200 ml Balance 200 ml IV Total 200 ml Laboratory Tests 07/04/20 06:05: White Blood Count 10.7, Red Blood Count 4.50, Hemoglobin 15.2, Hematocrit 44.8, Mean Corpuscular Volume 100H, Mean Corpuscular Hemoglobin 33.8H, Mean Corpuscular Hemoglobin Concent 34.0, Red Cell Distribution Width 12.4, Platelet Count 286, Mean Platelet Volume 7.9, Neutrophils (%) (Auto) 65.1, Lymphocytes (%) (Auto) 20.5, Monocytes (%) (Auto) 8.5, Eosinophils (%) (Auto) 3.4H, Basophils (%) (Auto) 2.5H, Sodium Level 136, Potassium Level 3.3L, Chloride Level 101, Carbon Dioxide Level 27, Blood Urea Nitrogen 2L, Creatinine 0.6, Estimat Glomerular Filtration Rate > 60, Glucose Level 103, Calcium Level 8.5, Total Bilirubin 0.5, Aspartate Amino Transf (AST/SGOT) 26, Alanine Aminotransferase (ALT/SGPT) 30, Alkaline Phosphatase 47, Total Protein 5.6L, Albumin 2.7L, Globulin 2.9, Albumin/Globulin Ratio 0.9L, Amylase Level 130H, Lipase 481H Height (Feet): 5 Height (Inches): 3.00 Weight (Pounds): 200 Objective Obese woman NCAT supple CTA RR abd soft NT ND no edema Assessment/Plan Assessment/Plan: Assessment/Plan Problem List: (1) Pancreatitis ICD Codes: K85.90 - Acute pancreatitis without necrosis or infection, unspecified SNOMED: 60117450 (2) ETOH abuse ICD Codes: F10.10 - Alcohol abuse, uncomplicated SNOMED: 19031520 (3) Hypertension ICD Codes: I10 - Essential (primary) hypertension SNOMED: 05500535 (4) Abdominal pain ICD Codes: R10.9 - Unspecified abdominal pain SNOMED: 36211243 (5) Diverticulosis ICD Codes: K57.90 - Diverticulosis of intestine, part unspecified, without perforation or abscess without bleeding SNOMED: 917092899 (6) Fatty liver ICD Codes: K76.0 - Fatty (change of) liver, not elsewhere classified SNOMED: 924079152 (7) Brain aneurysm ICD Codes: I67.1 - Cerebral aneurysm, nonruptured SNOMED: 132677050, 694816680 Assessment/Plan: clears IVF pain control CT reviewed>>> will order MRCP repeat labs Deidre Elliott MD Jul 04, 2020 18:14
--- NOTE | 2020-07-04 19:03 | NUR ---
NURSE HAND-OFF REPORT: Important Events on Shift:[PAIN MANAGEMENT, BLOOD PRESSURE MONITORING, K+ REPLACED. IV REINSERTION] Patient Status: [NO SIGNIFICANT CHANGE] Diet: [SOFT] Pending Orders: [] Pending Results/Labs:[] Pending MD notification:[] Latest Vital Signs: Temperature 99.7 , Pulse 65 , B/P 121 /81 , Respiratory Rate 17 , O2 SAT 94 , Room Air, O2 Flow Rate . Vital Sign Comment: [] EKG Rhythm: Sinus Rhythm Rhythm change?: N MD Notified?: - MD Response: Latest Alvarez Fall Score: 35 Fall Risk: Medium Risk Safety Measures: Call light Within Reach, Bed Alarm Zone 2, Side Rails Side Rails x2, Bed position Low and Locked. Fall Precautions: Yellow Gown Patient Fall Education Report given to [FORTINO].
--- NOTE | 2020-07-04 19:46 | NUR ---
NURSE NOTES: Received patient from NOAH Faith. Patient AOx4. able to communicate needs. On room air, saturating well. Breathing unlabored and even. IV site intact and flushed; saline lock. Complaining of abdominal pain at this time, will give medication as prescribed. Bed in lowest position, brakes engaged and bed alarm on. Call light placed within reach. Will continue to monitor.
[2020-07-04 20:00] VITALS: BP 135/81
[2020-07-05] VITALS (7 sets, daily range): BP systolic 139–168; BP diastolic 88–99
[2020-07-05] MEDS: HYDROcodone/Acetamin 10/325 tab ORAL PRN ×4 (00:18→13:36)
[2020-07-05] MEDS: Morphine Sulfate 2mg/ml Inj(IV/IM USE ONLY) IVP PRN ×4 (02:19→15:01)
[2020-07-05] MEDS: Albuterol ud Inhalation HHN PRN (02:42)
--- NOTE | 2020-07-05 06:52 | General Progress Note ---
Subjective HEENT: Denies: no symptoms, eye pain, blurred vision, tearing, double vision, ear pain, ear discharge, nose pain, nose congestion, throat pain, throat swelling, mouth pain, mouth swelling, other Cardiovascular: Denies: no symptoms, chest pain, edema, irregular heart rate, lightheadedness, palpitations, syncope, other Respiratory: Denies: no symptoms, cough, orthopnea, shortness of breath, SOB with excertion, SOB at rest, sputum, stridor, wheezing, other Gastrointestinal/Abdominal: Denies: no symptoms, abdomen distended, abdominal pain, black stools, tarry stools, blood in stool, constipated, diarrhea, difficulty swallowing, nausea, poor appetite, poor fluid intake, rectal bleeding, vomiting, other Genitourinary: Denies: no symptoms, burning, discharge, frequency, flank pain, hematuria, incontinence, pain, urgency, other Neurologic/Psychiatric: Denies: no symptoms, anxiety, depressed, emotional problems, headache, numbness, paresthesia, pre-existing deficit, seizure, tingling, tremors, weakness, other Endocrine: Denies: no symptoms, excessive sweating, flushing, intolerance to cold, intolerance to heat, increased hunger, increased thirst, increased urine, unexplained weight gain, unexplained weight loss, other Hematologic/Lymphatic: Denies: no symptoms, anemia, easy bleeding, easy bruising, other Allergies: Coded Allergies: No Known Allergies (Unverified , 03/24/19) Subjective 07/03 tolerating clears, wants to dc once w/u done, htn better 07/04: No acute distress, no events overnight. Covering Dr. Gutierres 07/05 bp is better controlled, no bleeding, meds reviewed, no night sweats Objective Last 24 Hour Vital Signs Date Time Temp Pulse Resp B/P (MAP) Pulse Ox O2 Delivery O2 Flow Rate FiO2 07/05/20 05:22 99.7 07/05/20 04:00 72 07/05/20 04:00 96.0 72 18 139/89 (106) 96 07/05/20 02:53 64 18 99 Room Air 21 61 18 90 07/05/20 00:58 155/92 07/05/20 00:48 99.7 07/05/20 00:00 97.9 74 18 155/92 (113) 97 07/05/20 00:00 73 07/04/20 22:37 99.7 07/04/20 21:00 Room Air 07/04/20 20:21 99.7 07/04/20 20:07 61 16 98 Room Air 21 71 16 91 07/04/20 20:00 99.7 75 17 135/81 (99) 96 07/04/20 20:00 72 07/04/20 18:10 99.7 07/04/20 17:08 121/81 07/04/20 17:08 65 121/81 07/04/20 17:07 121/81 07/04/20 16:00 65 07/04/20 15:36 99.7 74 17 121/81 (94) 94 07/04/20 13:18 98.1 07/04/20 12:00 80 07/04/20 11:50 98.1 07/04/20 11:43 98.1 76 17 180/113 (135) 97 07/04/20 11:21 180/113 07/04/20 09:00 Room Air 07/04/20 08:59 98.4 07/04/20 08:15 160/77 07/04/20 08:15 160/77 07/04/20 08:15 160/77 07/04/20 08:00 98.4 78 17 160/77 (104) 96 07/04/20 08:00 80 Intake and Output 07/04/20 07/05/20 19:00 07:00 Intake Total 720 ml Balance 720 ml Intake Oral 720 ml # Voids 2 Height (Feet): 5 Height (Inches): 3.00 Weight (Pounds): 200 Objective General Appearance: alert, moderate distress Head: normocephalic, atraumatic Eyes: bilateral eye normal inspection, bilateral eye PERRL ENT: hearing grossly normal, normal pharynx, no angioedema, normal voice Neck: full range of motion, supple/symm/no masses Respiratory: chest non-tender, lungs clear, normal breath sounds Cardiovascular: regular rate, rhythm, no edema, no gallop, no murmur Gi: normal bowel sounds, no organomegaly, epigastric ttp Rectal: deferred Genitourinary: no CVA tenderness Musculoskeletal: back normal, no calf tenderness Neurologic: alert, motor strength/tone normal Skin: no rash Lymphatic: no adenopathy Assessment/Plan Assessment/Plan: Assessmet and Recs # Pancreatitis recurrece with abd pain --> recommend cessation of etoh --> supportive care, ivf, banana bag as needed --> lipase elev --> per gi->mrcp ordered --> zofran prn # Pancreatic tail lesion -> mr imaging for further eval # Leukocytosis likely reactive process --> as on abx levaquin --> trend asneeded wbc 16 # Hypertension systolic pressures greater than 200. --> to see Christoph, seen on last admission --> laisniopril, amlodipine # Mild headache but CT scan was unremarkable aside from evidence of prior aneurysmal clipping. # hx Pancreatitis Appreciate technical solutions consultant care Cb Del Valle MD Jul 05, 2020 06:52
[2020-07-05 07:12] LABS: BASOPHILS % (AUTO) 2.1 % (0.0-2.0); EOSINOPHILS % (AUTO) 3.5 % (0.0-3.0); HEMATOCRIT 45.3 % (37.0-47.0); HEMOGLOBIN 15.7 G/DL (12.0-16.0); LYMPHOCYTES % (AUTO) 24.6 % (20.0-45.0); MEAN CORPUSCULAR VOLUME 98 FL (80-99); MONOCYTES % (AUTO) 9.1 % (1.0-10.0); NEUTROPHILS % (AUTO) 60.7 % (45.0-75.0); PLATELET COUNT 272 K/UL (150-450); RED BLOOD COUNT 4.61 M/UL (4.20-5.40); RED CELL DISTRIBUTION WIDTH 12.5 % (11.6-14.8); WHITE BLOOD COUNT 8.9 K/UL (4.8-10.8)
--- NOTE | 2020-07-05 07:16 | NUR ---
NURSE HAND-OFF REPORT: Important Events on Shift:[Still complained of pain during the shift; norco and morphine given. Endorsed to ask MD if breathing treatment could be changed to a scheduled medication because patient would ask for breathing tx around the clock.] Patient Status: [FC] Diet: [regular] Pending Orders: [] Pending Results/Labs:[] Pending MD notification:[] Latest Vital Signs: Temperature 99.7 , Pulse 72 , B/P 139 /89 , Respiratory Rate 18 , O2 SAT 96 , Room Air, O2 Flow Rate . Vital Sign Comment: [] EKG Rhythm: Sinus Rhythm Rhythm change?: N MD Notified?: - MD Response: Latest Alvarez Fall Score: 35 Fall Risk: Medium Risk Safety Measures: Call light Within Reach, Bed Alarm Zone 1, Side Rails Side Rails x2, Bed position Low and Locked. Fall Precautions: Yellow Gown Patient Fall Education Report given to [ADONIS Faith].
--- NOTE | 2020-07-05 07:20 | NUR ---
NURSE NOTES: RECEIVED PATIENT A/A/OX4 IN BED CALM AND COMFORTABLE. HAVING BREAKFAST. APPEARS TO BE PLEASANT THIS AM. AMBULATES WITH STEADY GAIT. NO C/O PAIN/DISCOMFORT NOTED. TOLERATING WITH SOFT DIET. NO C/O N/V NOTED. PIV PATENT AND INTACT. SALINE LOCK. SKIN INTACT. BLE EDEMATOUS NONPITTING. BED IS IN THE LOWEST POSITION. SIDERAILS ARE UPX2. CALL LIGHT IS WITHIN REACH. BED BRAKES AND LOCK ACTIVATED. WILL CONT TO MONITOR
[2020-07-05] MEDS: HydrALAZINE 50mg tab ORAL SCH ×2 (08:42→17:16)
[2020-07-05] MEDS: Lisinopril 10mg tab ORAL SCH ×2 (08:42→17:16)
--- NOTE | 2020-07-05 11:37 | NUR ---
NURSE NOTES: CLONIDINE 0.1 MG GIVEN FOR SBP>150. HBP TRIGGERS WHEN PAIN TRIGGERS. ASYMPTOMATIC. PAIN MANAGED. WILL CONT TO MONITOR.
[2020-07-05] MEDS ORDERED: HYDRALAZINE HCL50 MG ORAL (17:35)
[2020-07-05] MEDS ORDERED: ZESTRIL20 MG ORAL (17:36)
[2020-07-05] MEDS ORDERED: NORVASC10 MG ORAL (17:36)
--- NOTE | 2020-07-05 17:38 | Cardiac Electrophysiology PN ---
Assessment/Plan Assessment/Plan 1. Accelerated hypertension. Better on lisinopril 20 mg daily, Norvasc 10 mg daily and Hydralazine 50 bid. T Echocardiogram EF 65% 2. Abdominal pain, pancreatitis. Further evaluation by Dr. Alexandre. MRCP canceled due to brain clips 3. History of alcohol use. 4. History of diverticulosis. 5. Brain aneurysm status post clipping. OK to DC Cardiac meds were prescribed and DW RN Subjective Subjective Feeling abd pain is better and BP is better. RN at bedside. Wants to go home Objective Last 24 Hour Vital Signs Date Time Temp Pulse Resp B/P (MAP) Pulse Ox O2 Delivery O2 Flow Rate FiO2 07/05/20 17:16 142/94 07/05/20 17:16 82 142/94 07/05/20 17:16 142/94 07/05/20 16:00 82 07/05/20 15:40 97.7 81 18 142/94 (110) 93 07/05/20 15:31 98.2 07/05/20 14:06 98.2 07/05/20 13:32 77 161/88 (112) 07/05/20 12:00 81 07/05/20 11:35 168/99 07/05/20 11:30 98.2 71 18 168/99 (122) 93 07/05/20 11:08 99.7 07/05/20 09:30 Room Air 07/05/20 09:13 99.7 07/05/20 08:42 156/89 07/05/20 08:42 77 156/89 07/05/20 08:42 156/89 07/05/20 08:00 98.2 77 18 156/89 (111) 93 07/05/20 08:00 104 07/05/20 06:52 99.7 07/05/20 05:22 99.7 07/05/20 04:00 72 07/05/20 04:00 96.0 72 18 139/89 (106) 96 07/05/20 02:53 64 18 99 Room Air 21 61 18 90 07/05/20 00:58 155/92 07/05/20 00:48 99.7 07/05/20 00:00 97.9 74 18 155/92 (113) 97 07/05/20 00:00 73 07/04/20 22:37 99.7 07/04/20 21:00 Room Air 07/04/20 20:21 99.7 07/04/20 20:07 61 16 98 Room Air 21 71 16 91 07/04/20 20:00 99.7 75 17 135/81 (99) 96 07/04/20 20:00 72 07/04/20 18:10 99.7 Intake and Output 07/04/20 07/05/20 19:00 07:00 Intake Total 720 ml Balance 720 ml Intake Oral 720 ml # Voids 2 Laboratory Tests Test 07/05/20 05:55 White Blood Count 8.9 K/UL (4.8-10.8) Red Blood Count 4.61 M/UL (4.20-5.40) Hemoglobin 15.7 G/DL (12.0-16.0) Hematocrit 45.3 % (37.0-47.0) Mean Corpuscular Volume 98 FL (80-99) Mean Corpuscular Hemoglobin 34.1 PG (27.0-31.0) H Mean Corpuscular Hemoglobin Concent 34.7 G/DL (32.0-36.0) Red Cell Distribution Width 12.5 % (11.6-14.8) Platelet Count 272 K/UL (150-450) Mean Platelet Volume 8.4 FL (6.5-10.1) Neutrophils (%) (Auto) 60.7 % (45.0-75.0) Lymphocytes (%) (Auto) 24.6 % (20.0-45.0) Monocytes (%) (Auto) 9.1 % (1.0-10.0) Eosinophils (%) (Auto) 3.5 % (0.0-3.0) H Basophils (%) (Auto) 2.1 % (0.0-2.0) H Objective HEAD AND NECK: No JVD. LUNGS: Clear. CARDIOVASCULAR: Regular S1 and S2 with no gallop or murmur. ABDOMEN: Soft. EXTREMITIES: No pitting edema. Filiberto Hawthorne MD Jul 05, 2020 17:38
--- NOTE | 2020-07-05 18:03 | NUR ---
NURSE NOTES: DISCHARGED HOME WITH INSTRUCTIONS GIVEN AND RX. PERSONAL BELONGINGS NOTED. VERIFIED HOME ADDRESS. IN STABLE CONDITION. VSS PRIOR DISCHARGE WITH NO PAIN /DISCOMFORT NOTED. PATIENT REFUSED FOR STAFF TO CALL [facility]ILY [facility] AND WILL TAKE LYFT TRANSPORTATION. REMOVED IV ACCESS AND ARM BAND.
--- NOTE | 2020-07-05 19:00 | General Progress Note ---
Subjective Allergies: Coded Allergies: No Known Allergies (Unverified , 03/24/19) Subjective above noted comfortable no abd pain no BM Objective Last 24 Hour Vital Signs Date Time Temp Pulse Resp B/P (MAP) Pulse Ox O2 Delivery O2 Flow Rate FiO2 07/05/20 17:16 142/94 07/05/20 17:16 82 142/94 07/05/20 17:16 142/94 07/05/20 16:00 82 07/05/20 15:40 97.7 81 18 142/94 (110) 93 07/05/20 15:31 98.2 07/05/20 14:06 98.2 07/05/20 13:32 77 161/88 (112) 07/05/20 12:00 81 07/05/20 11:35 168/99 07/05/20 11:30 98.2 71 18 168/99 (122) 93 07/05/20 11:08 99.7 07/05/20 09:30 Room Air 07/05/20 09:13 99.7 07/05/20 08:42 156/89 07/05/20 08:42 77 156/89 07/05/20 08:42 156/89 07/05/20 08:00 98.2 77 18 156/89 (111) 93 07/05/20 08:00 104 07/05/20 06:52 99.7 07/05/20 05:22 99.7 07/05/20 04:00 72 07/05/20 04:00 96.0 72 18 139/89 (106) 96 07/05/20 02:53 64 18 99 Room Air 21 61 18 90 07/05/20 00:58 155/92 07/05/20 00:48 99.7 07/05/20 00:00 97.9 74 18 155/92 (113) 97 07/05/20 00:00 73 07/04/20 22:37 99.7 07/04/20 21:00 Room Air 07/04/20 20:21 99.7 07/04/20 20:07 61 16 98 Room Air 21 71 16 91 07/04/20 20:00 99.7 75 17 135/81 (99) 96 07/04/20 20:00 72 Intake and Output 07/04/20 07/05/20 19:00 07:00 Intake Total 720 ml Balance 720 ml Intake Oral 720 ml # Voids 2 Laboratory Tests 07/05/20 05:55: White Blood Count 8.9, Red Blood Count 4.61, Hemoglobin 15.7, Hematocrit 45.3, Mean Corpuscular Volume 98, Mean Corpuscular Hemoglobin 34.1H, Mean Corpuscular Hemoglobin Concent 34.7, Red Cell Distribution Width 12.5, Platelet Count 272, Mean Platelet Volume 8.4, Neutrophils (%) (Auto) 60.7, Lymphocytes (%) (Auto) 24.6, Monocytes (%) (Auto) 9.1, Eosinophils (%) (Auto) 3.5H, Basophils (%) (Auto) 2.1H Height (Feet): 5 Height (Inches): 3.00 Weight (Pounds): 200 Objective Obese woman NCAT supple CTA RR abd soft NT ND no edema Assessment/Plan Assessment/Plan: Assessment/Plan Problem List: (1) Pancreatitis ICD Codes: K85.90 - Acute pancreatitis without necrosis or infection, unspecified SNOMED: 09251193 (2) ETOH abuse ICD Codes: F10.10 - Alcohol abuse, uncomplicated SNOMED: 86974543 (3) Hypertension ICD Codes: I10 - Essential (primary) hypertension SNOMED: 64129540 (4) Abdominal pain ICD Codes: R10.9 - Unspecified abdominal pain SNOMED: 56119790 (5) Diverticulosis ICD Codes: K57.90 - Diverticulosis of intestine, part unspecified, without perforation or abscess without bleeding SNOMED: 235700354 (6) Fatty liver ICD Codes: K76.0 - Fatty (change of) liver, not elsewhere classified SNOMED: 520701982 (7) Brain aneurysm ICD Codes: I67.1 - Cerebral aneurysm, nonruptured SNOMED: 921526364, 648333875 Assessment/Plan: po as tolerated IVF pain control CT reviewed>>> will order MRCP d/c planning Deidre lEliott MD Jul 05, 2020 19:00
--- NOTE | 2020-07-06 06:19 | Cardiology Report ---
APPROVED REPORT EKG Measurement Heart [id number] <Conclusion> Normal sinus rhythm Possible Left atrial enlargement Left ventricular hypertrophy Cannot rule out Septal infarct, age undetermined Abnormal ECG
--- NOTE | 2020-07-07 08:07 | Discharge Summary ---
Discharge Summary Discharge Summary _ DATE OF ADMISSION: 07/01/2020 DATE OF DISCHARGE: 07/05/2020 DISCHARGED BY: Dr. Gutierres REASON FOR ADMISSION: 40 years old female with past medical history of hypertension, pancreatitis, ETOH abuse, who recently hospitalized at [facility], was brought by paramedics due to severe abdominal pain. Patient reported pain 10 out of 10 on a scale 1-10. Upon evaluation blood pressure was 249/164. Patient reported taking labetalol early in the morning, however she did not have any medication for pain. She reported few bouts of nonbloody emesis and nausea. No diarrhea or constipation. No blood in the stool. No fever or chills. No urinary symptoms. Patient declined drinking alcohol o within the past few days. Patient reported headache and dizziness. No chest pain no shortness of breath. Laboratory work-up revealed leukocytosis WBC 16.1 , stable hemoglobin and hematocrit. Stable electrolytes and renal parameters. Lipase 504. Stable LFT. Troponin negative, pro BNP 1307. EKG revealed sinus rhythm, no acute ischemic changes. Urine toxicology screen was positive for opiates and benzodiazepine. Serum alcohol level was less than 3. CT of the head revealed no acute intracranial bleeding or mass-effect. Evidence of left convexity craniotomy and aneurysm clipping. Abdominal ultrasound revealed lesion in the pancreatic body tail junction 1.2 cm. Hypoechoic lesion in the pancreatic body tail junction. Negative for gallstones or dilated ducts. Liver demonstrates diffusely increased echogenicity , consistent with diffuse hepatocellular disease, most likely fatty changes. In emergency department patient received analgesic , antihypertensive, antiemetic , normal saline bolus and admitted to telemetry floor for further management. CONSULTANTS: operating system programmer Dr. Oconnor GI specialist Dr. Alexandre inside sales professional/oncologist Dr. Del Valle [facility] COURSE: Patient admitted to telemetry floor. Rejector closely followed. Antihypertensive regimen was optimized as per operating system programmer. Blood pressure stabilized. Echocardiogram revealed preserved ejection fraction of 65%. Patient provided with IV fluids. Pain management was addressed. Antiemetic provided as needed. GI specialist closely followed. Patient had CT scan of the abdomen and pelvis done on the previous admission on 06/23 , which revealed 1.4 cm hypodense lesion within the tail of the pancreas possibly representing cystic neoplasm versus cyst, versus IPMN. Subsequently MRCP was ordered MRCP was canceled, since patient wanted to go home. Patient was counseled on abstinence from alcohol. Patient subsequently was discharged home . Patient was recommended outpatient MRCP for further work-up of pancreatic tail lesion FINAL DIAGNOSES: Hypertensive urgency Abdominal pain Pancreatitis , recurrent Pancreatic tail lesion ETOH abuse History of brain aneurysm s, tatus post clipping Diverticulosis Fatty liver DISCHARGE MEDICATIONS: See Medication Reconciliation list. DISCHARGE INSTRUCTIONS: Patient was discharged home. Outpatient follow-up with a primary care provider in 1 week. Patient was recommended outpatient follow-up with MRCP for further work-up of pancreatic tail lesion. Patient was counseled on abstinence from EtOH. I have been assigned to dictate discharge summary for this account. I was not involved in the patient's management. Halley Brink NP Jul 07, 2020 08:07
--- NOTE | 2020-07-07 15:22 | NUR ---
INSURANCE DC SUMMARY FAXED TO [facility] [phone]
== END 2020-07-05 18:06 | disposition other institution (70) | DRG 282 ==
LOC: EDBD 13:24 → EMR 13:45 → 2E 15:40 → EDBEDREQ 20:35 → 2E 07-02 01:48
DX: K85.90 Acute pancreatitis without necrosis or infection, unspecified (principal); I10 Essential (primary) hypertension; E66.9 Obesity, unspecified; Z68.39 Body mass index [BMI] 39.0-39.9, adult; Z86.79 Personal history of other diseases of the circulatory system; I16.0 Hypertensive urgency; F10.10 Alcohol abuse, uncomplicated; K57.90 Diverticulosis of intestine, part unspecified, without perforation or abscess without bleeding; K76.0 Fatty (change of) liver, not elsewhere classified; I67.1 Cerebral aneurysm, nonruptured
CPT/HCPCS: 36415; 70450; 76700; 80053; 80307; 81003; 81025; 82150; 82550; 83690; 83880; 84484; 85025; 85610; 85730; 87081; 87086; 93005; 94640; 96365; 96375; 96376; 99291; G0480; J2405; J7030; J8499